=== PATIENT | female | born 1965 | race Caucasian/White ===

== ENCOUNTER 2020-03-22 14:05 | Outpatient (REF) | payer OTHER, SELFPAY ==
[2020-03-23 07:22] LABS: Follicle Stimulating Hormone 37.1 mIU/mL
== END 2020-03-22 14:06 | disposition home or self-care (01) ==
LOC: HO.LAB 14:05
PROVIDERS: PCP Physician Assistant; Visit Provider Advanced Practice Midwife
DX: Z01.419 Encounter for gynecological examination (general) (routine) without abnormal findings (principal); R23.2 Flushing
CPT/HCPCS: 83001; 88142

== ENCOUNTER 2020-03-22 16:43 | Outpatient (REF) | payer OTHER, SELFPAY ==
--- NOTE | 2020-03-22 | MM_ITS ---
EXAMINATION: MM SCREENING DIGITAL BREAST TOMOSYNTHESIS, BILATERAL CLINICAL INFORMATION: Screening. Asymptomatic. The lifetime risk of breast cancer based on the Tyrer-Cuzick Model is 20%. COMPARISON: Mammography: 08/19/2018, 08/13/2017, 09/25/2016 TECHNIQUE: Digital breast tomosynthesis is performed in both the craniocaudal and mediolateral oblique views along with computer-aided detection (CAD). Synthesized 2D images are generated from the tomosynthesis. FINDINGS: There are scattered areas of fibroglandular density (ACR BI-RADS breast composition Category b). There is inhomogeneous parenchymal pattern similar to prior exams. There is no developing density or interval mass or architectural abnormality. Some fine calcifications central outer right breast on CC view are stable. There are some similar punctate round calcifications scattered central left breast. The axilla and skin contours are unremarkable. No significant changes from prior studies. MM/MM tomosynthesis screening BI IMPRESSION: No significant changes from prior studies. ASSESSMENT: BI-RADS 2: Benign RECOMMENDATION: 1. Routine annual mammography screening. 2. The lifetime risk of breast cancer based on the Tyrer-Cuzick Model is 20%. Additional annual adjunct screening with breast MRI may be of benefit in women with a risk score of 20% or greater. This patient's information was entered into a reminder system with a target due date for their next mammogram.
[2020-03-29 20:12] LABS: HPV mRNA E6/E7 rflx Not Detected (Not Detected)
== END 2020-03-22 16:44 | disposition home or self-care (01) ==
LOC: HO.MAMMO 16:43
PROVIDERS: PCP Physician Assistant; Visit Provider Physician Assistant
DX: Z12.31 Encounter for screening mammogram for malignant neoplasm of breast (principal)
CPT/HCPCS: 77063; 77067; 87624; 87625

== ENCOUNTER → 2020-04-05 13:59 | Outpatient (BNVA) | payer OTHER, SELFPAY | PROVIDERS: PCP Physician Assistant; Referring Provider Physician Assistant; Visit Provider Advanced Practice Midwife | DX: Z76.89 Persons encountering health services in other specified circumstances (principal) ==

== ENCOUNTER → 2020-05-03 10:56 | Outpatient (BNVA) | payer OTHER, SELFPAY | PROVIDERS: PCP Physician Assistant; Visit Provider Internal Medicine Cardiovascular Disease | DX: R07.89 Other chest pain (principal); R00.2 Palpitations; I10 Essential (primary) hypertension; E78.5 Hyperlipidemia, unspecified | CPT/HCPCS: 93005; 99202 ==

== ENCOUNTER → 2020-05-27 08:13 | Outpatient (REF) | payer OTHER, SELFPAY ==
--- NOTE | 2020-05-27 08:35 | CA_ITS ---
Transthoracic Echocardiogram Patient (Last, First, Middle): Linda Epstein A Gender: Female Date of : 1965 Age: 54 Procedure Date: 05/27/2020 Procedure Type: Transthoracic Echocardiogram Location: OP Height: 160.02 cm Weight: 76.66 kg BSA: 1.80 m2 Heart Rate: bpm BP: 116 / 72 mmHg Tire Service Technician: RUSLAN Referring MD: Chya Barrow MD Symptoms: R07.89 - Other chest pain Study Quality: Good ECG Rhythm: Sinus Conclusions: - The left ventricular systolic function is normal. The visually estimated ejection fraction is between 60-65%. - No obvious valvular pathology seen on this study. Findings Left Ventricle Normal left ventricular cavity size. There is normal left ventricular wall thickness. The left ventricular systolic function is normal. The visually estimated ejection fraction is between 60-65%. There is no evidence of regional wall motion abnormalities. Diastolic function is normal for age. Right Ventricle Normal right ventricular cavity size and systolic function. Atria Both atria are normal in size. Aortic Valve There is a normal trileaflet aortic valve. There is no aortic valve stenosis. There is no aortic valve regurgitation. Mitral Valve The mitral valve appears normal. There is trace mitral valve regurgitation. There is no mitral valve stenosis. Pulmonic Valve The pulmonic valve was not well visualized. Tricuspid Valve Normal tricuspid valve structure. There is trace tricuspid valve regurgitation. The pulmonary artery systolic pressure is normal. Great Vessels The aortic annulus, sinuses of valsalva, and asc aorta are normal in size. Venous The inferior vena cava is normal in size and collapses greater than 50% with inspiration. Pericardium/Pleural There is no evidence of pericardial effusion. Prior Study Comparison No prior study available for comparison. Recommendations, Care & Conclusions No obvious valvular pathology seen on this study. Measurements 2D Linear Measurements IVSd: 0.78 0.6-0.9/0.6-1.0 cm LVIDd: 4.12 3.9-5.3/4.2-5.9 cm LVIDd Index: 2.29 2.4-3.2/2.2-3.1 cm/m2 LVIDs: 2.92 2.0-3.6 cm LVPWd: 0.91 0.7-1.1 cm Ao Root: 2.70 2.1-3.5 cm LA Diam: 3.60 2.7-3.8/3.0-4.0 cm LAIDs Index: 2.00 1.5-2.3 cm/m2 LV Mass: 130.50 67-162/88-224 g LV Mass Index: 72.50 43-95/49-115 g/m2 LVOT Diam: 1.80 3.0+(-)1.3 cm 2D Systolic Function EF 4C: 61.30 >55% EF 2C: 66.40 >55% EF BiP: 64.70 >55% Mitral Valve MV Pk E: 0.59 MV PK A: 0.40 MV Decel Time: 155.00 E/A: 1.50 E'Lateral: 14.20 E'Medial: 9.38 E/E' Med: 6.30 E/E' Lat: 4.10 PHT: 45.00 MVA PHT: 4.89 Decel Medina: 3.79 Aortic Valve AoV Pk Eben: 1.25 AoV Pk Grad: 6.00 LVOT LVOT Pk Eben: 1.16 LVOT Mn Eben: 0.79 LVOT VTI: 0.27 LVOT Pk Grad: 5.00 LVOT Mn Grad: 3.00 LVOT Diam: 1.80 LVOT Area: 2.54 Diastolic Function MV Pk E: 0.59 MV Pk A: 0.40 E/A: 1.50 E'Medial: 9.38 E/E' Med: 6.30 E' Laterial: 14.20 E/E' Lat: 4.10 Tricuspid Valve TR Pk Eben: 2.39 TR Pk Grad: 23.00 RA Press: 3.00 RVSP: 26.00 Great Vessels Aorta Ao Root-2D: 2.70 2.0-3.7 cm Ao Arch: 2.90 Updated in Other Vendor System with Status of Final Richmond Berger MD electronically signed on 05/29/2020 1:09:19 PM with status of Final
--- NOTE | 2020-05-27 08:35 | ECG_ITS ---
Hook-up date: 2020-05-27 10:29:00 Duration: 24:57:00 Test Indications: ESSEN. HTN, PALPITATIONS, HYPERL Medications: [id number] QRS complexes 1 Ventricular ectopics which represent <1 % of total QRS comp. 7 Supraventricular ectopics which represent <1 % of total QRS comp. * Paced QRS complexs which represent % of total QRS comp. VENTRICULAR ECTOPY 1 Isolated 0 Bigeminal Cycles 0 Couplets 0 Runs 0 Beats in Runs * Beats LONGEST at * BPM at :: -- * Beats FASTEST at * BPM at :: -- SUPRAVENTRICULAR ECTOPY 5 Isolated 1 Couplets 0 Runs 0 Beats in Runs * Beats LONGEST at * BPM at :: -- * Beats FASTEST at * BPM at :: -- HEART RATES 62 MIN at 21:20:08 2020-05-27 70 AVG 102 MAX at 17:30:44 2020-05-27 LONGEST RR 1.3040 secs at 17:49:30 2020-05-27 S-T LEVELS Channel 1 - 128 mm at 10:29:00 2020-05-27 - 128 mm at 10:29:00 2020-05-27 Channel 2 - 128 mm at 10:29:00 2020-05-27 - 128 mm at 10:29:00 2020-05-27 Channel 3 - 128 mm at 02:94:81 -- - 128 mm at 02:94:81 Basic rhythm Normal sinus rhythm No long pause or profound bradycardia No dangerous dysrhythm periods Patient did not report any symptoms in the diary Referred By: Liban Watkins Overread By: GRACIELA CATES MD
--- NOTE | 2020-05-27 09:29 | NM_ITS ---
Exercise Myocardial perfusion study Indication: Chest pain to evaluate for myocardial ischemia Technique: The patient was brought in for an exercise perfusion study on 05/27/2020. Patient performed exercise as per Harjinder protocol and was injected 25 mCi of sestamibi was given intravenously one target HR was achieved. Images were obtained using the SPECT gamma camera interlaced with the gating device. Images were obtained in supine position. Resting perfusion study was performed on 05/31/2020. Patient was administered 25 mCi of sestamibi intravenously at rest. Images were then obtained in supine position. Images were processed with the software and compared side to side in short axis, horizontal long axis and vertical long axis views. Images obtained with and without CT attenuation. Total DLP 91 mGy-cm. Findings: The stress perfusion study showed both attenuated corrected as well as non attenuated images show normal uptake of radiotracer in all segments of LV myocardium. The gated study shows normal LV systolic function with calculated LVEF of greater than 70 %. LV cavity is normal in size. The gated study shows normal systolic wall thickening and contraction of all segments. There is no transient ischemic dilation. Resting study shows normal uptake of radiotracer in all segments of LV myocardium. Gating at rest reveals normal systolic wall motion with ejection fraction at 67%. The findings are consistent with normal myocardial perfusion. NM/NM cardiolite stress test Impression: 1. Normal myocardial perfusion 2. Gated LVEF is 67% 3. Transient ischemic dilatation not present Stress EKG is negative for ischemia
--- NOTE | 2020-05-27 09:30 | CA_ITS ---
Acquisition Time: 2020-05-27 10:37:19 Total Exercise Time: 00:07:15 Test Indications: Chest Pain Medications: PROPRANOLOL ZOLPIDEM HCTZ MAG BUPROPION Protocol: NASH Max HR: 141 BPM 84% of Pred: 167 BPM Max BP: 150/090 mmHG Max Work Load: 8.4 METS Exercise stress nuclear using Nash protocol, total of 7 min 15 sec. METS 8.40, TAPHR up to 84 %. Pt tolerated well, denies any anginal sx. EKG with isolated PVC's, ST inverions seen inferiorly, laterally and anteriorly. Nuclear images to follow. Normotensive response to exercise. Test reviewed with DR. Berger. Referred By: Chay Barrow Overread By: Stefan Morris
[2020-05-27 11:18] LABS: Alanine Aminotransferase 9 U/L (0-31); Albumin Level 4.4 g/dL (3.5-5.0); Alkaline Phosphatase 74 U/L (39-117); Anion Gap 18 (12-20); Aspartate Amino Transferase 10 U/L (5-31); Bilirubin Total 0.5 mg/dL (0.0-1.0); Blood Urea Nitrogen 12 mg/dL (9-16); Calcium 9.1 mg/dL (8.4-10.2); Carbon Dioxide 20 mmol/L (22-29); Chloride 101 mmol/L (96-108); Cholesterol 223 mg/dL; Estimated Glomerular Filt Rate > 60; Glucose Fasting 98 mg/dL (60-99); HDL Cholesterol 68 mg/dL; LDL Cholesterol Calculated 142 mg/dl; Potassium 4.2 mmol/l (3.3-5.1); Sodium 135 mmol/L (135-145); Triglycerides 66 mg/dL
[2020-05-27 11:38] LABS: TSH reflex Free T4 2.09 mIU/mL (0.32-4.0)
[2020-05-28 16:57] LABS: Follicle Stimulating Hormone 13.5 mIU/mL
== END ==
LOC: HO.CARD 08:13
PROVIDERS: PCP Physician Assistant; Referring Provider Advanced Practice Midwife; Visit Provider Internal Medicine Cardiovascular Disease
DX: R07.89 Other chest pain (principal); I10 Essential (primary) hypertension; R00.2 Palpitations; E78.5 Hyperlipidemia, unspecified; F33.0 Major depressive disorder, recurrent, mild; N91.2 Amenorrhea, unspecified; Z13.1 Encounter for screening for diabetes mellitus
CPT/HCPCS: 36415; 78452; 80053; 80061; 83001; 84443; 93005; 93017; 93225; 93226; 93306; A9500

== ENCOUNTER → 2020-05-31 13:09 | Outpatient (BNVA) | payer OTHER, SELFPAY | PROVIDERS: PCP Physician Assistant; Visit Provider Advanced Practice Midwife | DX: Z13.89 Encounter for screening for other disorder (principal) | CPT/HCPCS: 58301 ==

== ENCOUNTER → 2020-06-14 10:52 | Outpatient (BNVA) | payer OTHER, SELFPAY | PROVIDERS: PCP Physician Assistant; Visit Provider Internal Medicine Cardiovascular Disease | DX: R00.2 Palpitations (principal); R07.89 Other chest pain | CPT/HCPCS: 99212 ==

== ENCOUNTER 2020-09-02 09:54 | Emergency (ER) | payer OTHER, SELFPAY ==
--- NOTE | ~2020-09-02 | US_ITS ---
EXAMINATION: US VENOUS ULTRASOUND WITH DOPPLER LOWER EXTREMITY, RIGHT CLINICAL INFORMATION: Right lower extremity swelling COMPARISON: November 26, 2008 TECHNIQUE: Ultrasound of the deep veins is performed from the hip to the calf with compression sonography and color and pulse Doppler assessment. Spectral analysis with color-flow imaging is performed. FINDINGS: There is normal venous compression and respiratory variation and augmented flow. The visualized common femoral vein, superficial femoral vein, profunda femoral vein, popliteal vein, and the trifurcation region shows no evidence of deep venous thrombosis. No popliteal artery aneurysm. No popliteal fossa cyst. If the patient's symptoms persist, followup ultrasound in 5 days 7 days might be of value to exclude proximal propagation from a non-visualized calf vein. US/US venous duplex LE RT IMPRESSION: No acute DVT demonstrated in the right lower extremity.
[2020-09-02 10:23] VITALS: BP 151/86; PULSE 77; RESP 14; TEMP 36.6; O2SAT 98; BMI 28.5
--- NOTE | 2020-09-02 10:38 | ED.GENADULT ---
HPI - General Adult General Chief complaint: Extremity Injury, Lower <Bahman Kapoor - Last Filed: 09/02/20 13:26> Stated complaint: rt leg pain <Bahman Kapoor - Last Filed: 09/02/20 13:26> Time Seen by Provider: 09/02/20 10:29 <Bahman Kapoor - Last Filed: 09/02/20 13:26> Source: patient <Bahman Kapoor - Last Filed: 09/02/20 13:26> Mode of arrival: ambulatory <Bahman Kapoor - Last Filed: 09/02/20 13:26> Limitations: no limitations <Bahman Kapoor - Last Filed: 09/02/20 13:26> History of Present Illness HPI narrative: Patient complaining of right lower pain for 1 week. Patients denies trauma or a past history of DVTs. Patient states she has family history of DVTs. Patient has not been vaccinated for covid 19. + tobacco history. Patient state s pain is achy increases with palpation and originally started behind right knee. Pain 5/10 <Bahman Kapoor - Last Filed: 09/02/20 13:26> Onset (ago): week(s) <Bahman Kapoor - Last Filed: 09/02/20 13:26> Severity: mild <Bahman Kapoor - Last Filed: 09/02/20 13:26> Severity scale (1-10): 5 <Bahman Kapoor - Last Filed: 09/02/20 13:26> Related Data Home medications: Home Medications Medication Instructions Recorded Confirmed cholecalciferol (vitamin D3) 25 25 mcg PO DAILY 03/22/20 09/07/20 mcg (1,000 unit) capsule magnesium sulfate 100 mg capsule 100 mg PO DAILY 03/22/20 09/07/20 omega 3,6,9 combination no.7 92 mg mg PO 03/22/20 09/07/20 (43 mg-22 [id number]) chew tablet vitamin E 200 unit capsule 200 unit PO DAILY 03/22/20 09/07/20 vitamin B complex 1 tab PO DAILY 06/14/20 09/07/20 Previous Rx's Medication Instructions Recorded bupropion HCl 150 mg tablet,12 hr 150 mg PO QAM #30 cap 06/29/20 sustained-release hydrochlorothiazide 12.5 mg capsule 12.5 mg PO QAM #30 cap 07/24/20 propranolol 60 mg capsule,24 60 mg PO DAILY #30 cap 07/24/20 hr,extended release zolpidem 10 mg tablet 10 mg PO BEDTIME 30 Days #30 tab 07/28/20 atomoxetine 40 mg capsule 40 mg PO DAILY 14 Days #14 cap 09/07/20 atomoxetine 80 mg capsule 80 mg PO DAILY 30 Days #30 cap 09/07/20 <Bahman Kapoor - Last Filed: 09/02/20 13:26> Allergies/adverse reactions: Allergies Allergy/AdvReac Type Severity Reaction Status Date / Time Sulfa (Sulfonamide Allergy Severe HIVES, Verified 09/07/20 13:50 Antibiotics) anaphylaxis, [SULFA(SULFONAMIDE hives, ANTIBIOTICS)] airway constriction aspirin Allergy Unknown GI upset Verified 09/07/20 13:50 vomiting <Bahman Kapoor Last Filed: 09/02/20 13:26> Review of Systems Constitutional: Constitutional: Denies chills, Denies fatigue, Denies fever(s), Reports headache(s) and Denies weakness <Bahman Kapoor [employer] Last Filed: 09/02/20 13:26> ENT: Reports headache(s) <Bahman Kapoor [employer] Last Filed: 09/02/20 13:26> Cardiovascular: Cardiovascular: Denies chest pain, Denies chest pain at rest, Denies chest pain with activity and Denies dyspnea <Bahman Kapoor - Last Filed: 09/02/20 13:26> Respiratory: Respiratory: Denies chest congestion, Denies hemoptysis, Denies dyspnea and Denies wheezing <Bahman Kapoor [employer] Last Filed: 09/02/20 13:26> Gastrointestinal: Gastrointestinal: Denies nausea and Denies vomiting <Bahman [employer] Last Filed: 09/02/20 13:26> Musculoskeletal: Musculoskeletal: Reports as per HPI <Bahman Kapoor [employer] Last Filed: 09/02/20 13:26> Comments: right let pain calf <Bahman Kapoor [employer] Last Filed: 09/02/20 13:26> Neurologic: Reports headache(s) and Denies weakness <Bahman Kapoor [employer] Last Filed: 09/02/20 13:26> Psychiatric: Psychiatric: Reports no additional psychiatric complaints <Bahman Kapoor [employer] Last Filed: 09/02/20 13:26> Endocrine: Endocrine: Denies fatigue <Diabetica Filed: 09/02/20 13:26> Allergic/Immunologic: Allergic/Immunologic: Denies wheezing <Bahman Kapoor - Last Filed: 09/02/20 13:26> Comments: no rash <Bahman Kapoor - Last Filed: 09/02/20 13:26> FOR[facility]LY [facility], [facility] Past Medical History Attestation statement: The following information was validated with the patient. <Bahman Kapoor - Last Filed: 09/02/20 13:26> Medical History: Medical History Colon cancer screening History of ADHD History of urinary incontinence HTN (hypertension) Hyperlipidemia <Bahman Kapoor - Last Filed: 09/02/20 13:26> Surgical History: Surgical History History of elbow surgery <Bahman Kapoor - Last Filed: 09/02/20 13:26> Family History Family History: Family History Father GERD (gastroesophageal reflux disease) Stroke Mother Diabetes GERD (gastroesophageal reflux disease) Depression Hypertension Fibromyalgia Maternal Grandmother Dementia Uterine cancer Son Autism <Bahman Kapoor - Last Filed: 09/02/20 13:26> Social History Social History: Social History Alcohol intake: never Smoking Status: Current every day smoker Cigarettes Per Day: 10 Sexual orientation: Straight/Heterosexual Gender identity: female <Bahman Kapoor - Last Filed: 09/02/20 13:26> Physical Exam Vital Signs: Vital Signs: Last Vital Signs Temp 97.9 F 09/02/20 10:23 Pulse 77 09/02/20 10:23 Resp 14 09/02/20 10:23 BP 151/86 H 09/02/20 10:23 Pulse Ox 98 09/02/20 10:23 Body Mass Index 28.5 <Bahman Kapoor - Last Filed: 09/02/20 13:26> Vital Signs: Last Vital Signs Temp 97.9 F 09/02/20 10:23 Pulse 77 09/02/20 10:23 Resp 14 09/02/20 10:23 BP 151/86 H 09/02/20 10:23 Pulse Ox 98 09/02/20 10:23 Body Mass Index 28.5 <García Villegas MD - Last Filed: 09/18/20 01:27> Const: General: cooperative, healthy appearing, comfortable, no acute distress, alert and awake <Bahman Kapoor Last Filed: 09/02/20 13:26> Nutritional Appearance: average body habitus <Bahman Kapoor Last Filed: 09/02/20 13:26> Orientation/consciousness: patient oriented x3 <Bahman Kapoor Last Filed: 09/02/20 13:26> Limitations: no limitations <[facility] [address] Last Filed: 09/02/20 13:26> HENMT: Head: Yes normal to inspection <Bahman Kapoor Last Filed: 09/02/20 13:26> Ears: hearing grossly normal bilaterally <Bahman Kapoor Last Filed: 09/02/20 13:26> Eyes: Pupils: Equal, round and reactive pupils present <Bahman Kapoor Last Filed: 09/02/20 13:26> EOM: EOMs intact bilaterally <Bahman Kapoor Last Filed: 09/02/20 13:26> Neck: Neck: Yes full ROM <Bahman Kapoor Last Filed: 09/02/20 13:26> Chest: Chest palpation & inspection: normal inspection of the chest and normal palpation of entire chest wall <Bahman Kapoor Last Filed: 09/02/20 13:26> Resp: Effort & Inspection: normal respiratory effort, able to speak in complete sentences and no respiratory distress <Bahman Kapoor Last Filed: 09/02/20 13:26> Cardio: Jugular venous distension: no JVD <Bahman Kapoor Last Filed: 09/02/20 13:26> Rhythm: regular rhythm <Bahman Kapoor - Last Filed: 09/02/20 13:26> Heart sounds: S1 normal heart sound present and S2 normal heart sound present <Bahman Kapoor Last Filed: 09/02/20 13:26> GI: Inspection: Yes normal to inspection <[facility] [address] Last Filed: 09/02/20 13:26> Palpation (GI): Soft to palpation, nontender and no guarding <Bahman Kapoor Last Filed: 09/02/20 13:26> Back/Spine/Pelvis: Thoracic/Lumbar Spine: thoracic and lumbar spine normal to inspection <Bahman Kapoor - Last Filed: 09/02/20 13:26> Skin: General skin exam: no rashes or lesions noted and no jaundice <Bahman Kapoor - Last Filed: 09/02/20 13:26> Rashes: no rashes <Bahman Kapoor - Last Filed: 09/02/20 13:26> Neuro: General: patient oriented x3 and No decrease sensation to monofilament <Bahman Kapoor - Last Filed: 09/02/20 13:26> Cranial nerves: Yes Equal, round and reactive pupils present <Bahman Kapoor - Last Filed: 09/02/20 13:26> Gait exam (Neuro): Normal gait present and not ataxic <Bahman Kapoor - Last Filed: 09/02/20 13:26> Extrem: Other: + tenderness right calf full ROM no mass palpated + sensation and pulses <Bahman Kapoor - Last Filed: 09/02/20 13:26> Course Course Course Narrative: Plan duplex right lower extremity 1:20 p.m. Duplex negative for DVT <Bahman Kapoor - Last Filed: 09/02/20 13:26> I have reviewed the chart <García Villegas MD - Last Filed: 09/18/20 01:27> Medical Decision Making Differential Diagnosis Differential Diagnosis: Right Leg DVT, Rupture bakers cyst, Bakers cyst, right leg strain <Bahman Kapoor - Last Filed: 09/02/20 13:26> Imaging Data Venous US: Attestation: I personally reviewed and interpreted this imaging study as follows: <Bahman Kapoor - Last Filed: 09/02/20 13:26> Radiologist's impression: [address] [id number] ReportSigned Patient: Linda Epstein AMR#: [id number]: 1965Acct:[id number]/Sex: 55 / FADM Date: 09/02/20Loc: [id number]: Ordering Physician: MENDEL MITCHELL Date of Service: 09/02/20 Procedure(s): US venous duplex LE RT Accession Number(s): [id number] cc: MENDEL MITCHELL~ EXAMINATION: US VENOUS ULTRASOUND WITH DOPPLER LOWER EXTREMITY, RIGHT CLINICAL INFORMATION: Right lower extremity swelling COMPARISON: November 26, 2008 TECHNIQUE: Ultrasound of the deep veins is performed from the hip to the calf with compression sonography and color and pulse Doppler assessment. Spectral analysis with color-flow imaging is performed. FINDINGS: There is normal venous compression and respiratory variation and augmented flow. The visualized common femoral vein, superficial femoral vein, profunda femoral vein, popliteal vein, and the trifurcation region shows no evidence of deep venous thrombosis. No popliteal artery aneurysm. No popliteal fossa cyst. If the patient's symptoms persist, followup ultrasound in 5 days 7 days might be of value to exclude proximal propagation from a non-visualized calf vein. US/US venous duplex LE RT IMPRESSION: No acute DVT demonstrated in the right lower extremity. <Bahman Kapoor - Last Filed: 09/02/20 13:26> Discharge Plan Discharge Clinical Impression: Strain of right calf muscle <Bahman Kapoor - Last Filed: 09/02/20 13:26> Patient Disposition: Home, Self-Care <Bahman Kapoor - Last Filed: 09/02/20 13:26> Instructions: Muscle Strain (ED) <Bahman Landerosens - Last Filed: 09/02/20 13:26> Additional Instructions: Rest ice elevation in your ultrasound was negative for blood clot. <Bahman Kapoor - Last Filed: 09/02/20 13:26> Prescriptions: No Action bupropion HCl 150 mg tablet sustained-release 12 hr 150 mg PO QAM Qty: 30 RF: 4 hydrochlorothiazide 12.5 mg capsule 12.5 mg PO QAM Qty: 30 RF: 3 propranolol 60 mg capsule,extended release 24 hr 60 mg PO DAILY Qty: 30 RF: 3 zolpidem 10 mg tablet 10 mg PO BEDTIME 30 Days Qty: 30 RF: 3 atomoxetine 40 mg capsule 40 mg PO DAILY 14 Days Qty: 14 RF: 0 atomoxetine 80 mg capsule 80 mg PO DAILY 30 Days Qty: 30 RF: 1 cholecalciferol (vitamin D3) 25 mcg (1,000 unit) capsule 25 mcg PO DAILY RF: 0 magnesium sulfate 100 mg capsule 100 mg PO DAILY RF: 0 omega 3,6,9 combination no.7 92 mg (43 mg-22 [id number]) tablet,chewable PO RF: 0 vitamin E 200 unit capsule 200 unit PO DAILY RF: 0 vitamin B complex [B Complex-Vitamin B12] Tablet 1 tab PO DAILY RF: 0 <Bahman Kapoor - Last Filed: 09/02/20 13:26> Referrals: Liban Watkins PA-C [Primary Care Provider] - 2 days <Bahman Kapoor - Last Filed: 09/02/20 13:26> Interventions: ED Discharge Assessment Last Done: 09/02/20 13:50 <Bahman Kapoor - Last Filed: 09/02/20 13:26> Discharge Date/Time: 09/02/20 13:51 <Bahman Kapoor - Last Filed: 09/02/20 13:26>
--- NOTE | 2020-09-02 11:35 | PC.NURSE ---
US TECH AT BEDSIDE FOR EXAM
== END 2020-09-02 13:51 | disposition home or self-care (01) ==
PROVIDERS: Emergency Provider Emergency Medicine; PCP Physician Assistant
DX: S86.911A Strain of unspecified muscle(s) and tendon(s) at lower leg level, right leg, initial encounter (principal); R60.0 Localized edema; M79.604 Pain in right leg; F17.200 Nicotine dependence, unspecified, uncomplicated; X58.XXXA Exposure to other specified factors, initial encounter; Y93.9 Activity, unspecified; Y92.9 Unspecified place or not applicable; Y99.9 Unspecified external cause status; Z79.899 Other long term (current) drug therapy; Z71.6 Tobacco abuse counseling
CPT/HCPCS: 93971; 99283

== ENCOUNTER → 2020-10-05 11:26 | Outpatient (BNVA) | payer OTHER, SELFPAY | PROVIDERS: PCP Physician Assistant; Visit Provider Surgery Vascular Surgery | DX: I83.11 Varicose veins of right lower extremity with inflammation (principal) | CPT/HCPCS: 99202 ==

== ENCOUNTER 2020-10-11 07:59 | Outpatient (REF) | payer OTHER, SELFPAY ==
--- NOTE | ~2020-10-11 | US_ITS ---
EXAMINATION: BILATERAL LOWER EXTREMITY VENOUS ULTRASOUND (REFLUX EXAM) CLINICAL INDICATION: Varicose veins of the right lower extremity. COMPARISON: DVT study 09/02/2020. TECHNIQUE: Color flow triplex imaging and compression Doppler was performed to evaluate both the deep and the superficial systems bilaterally. To evaluate the superficial system, the examination was performed in the upright position. Color-flow Doppler ultrasound and compression ultrasound were utilized. In addition, maneuvers were utilized to demonstrate reflux. FINDINGS: 1. DEEP VENOUS ULTRASOUND OF THE RIGHT LOWER EXTREMITY: Common Femoral Vein: Compressible, normal respiratory variation and augmented flow. Femoral vein: Compressible, normal color flow and augmentation. Popliteal Vein: Compressible, normal augmentation. Deep Reflux: There is no evidence of reflux in the deep system in either the common femoral vein or the popliteal vein. There is no evidence of a Smith's cyst. 2. SUPERFICIAL ULTRASOUND WITH DOPPLER OF RIGHT LOWER EXTREMITY GREAT SAPHENOUS VEIN: Saphenofemoral junction: 0.7 cm Midthigh: 0.4 cm Above knee: 0.3 cm Below knee: 0.2 cm Midcalf: 0.1 cm Ankle: 0.2 cm GSV REFLUX: No evidence of reflux. DUPLICATED GREAT SAPHENOUS VEIN: None SMALL SAPHENOUS VEIN: Upper: 0.4 cm Lower: 0.2 cm SSV REFLUX: No evidence of reflux. VEIN OF GIACOMINI: None imaged. 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 VARICOSITIES: None imaged. 3. DEEP VENOUS ULTRASOUND OF THE LEFT LOWER EXTREMITY: Common Femoral Vein: Compressible, normal respiratory variation and augmented flow. Femoral vein: Compressible, normal color flow and augmentation. Popliteal Vein: Compressible, normal augmentation. Deep Reflux: There is no evidence of reflux in the deep system in either the common femoral vein or the popliteal vein. There is no evidence of a Smith's cyst. 4. SUPERFICIAL ULTRASOUND WITH DOPPLER OF LEFT LOWER EXTREMITY GREAT SAPHENOUS VEIN: Saphenofemoral junction: 0.8 cm Midthigh: 0.3 cm Above knee: 0.4 cm Below knee: 0.3 cm Midcalf: 0.3 cm Ankle: 0.2 cm GSV REFLUX: Reflux is noted at the level of the midcalf measuring 1200 ms and ankle at 944 ms. DUPLICATED GREAT SAPHENOUS VEIN: None SMALL SAPHENOUS VEIN: Upper: 0.2 cm Lower: 0.2 cm SSV REFLUX: No evidence of reflux. VEIN OF GIACOMINI: None imaged. PERFORATORS: None imaged. VARICOSITIES: Varicose veins are noted in the thigh proximally measuring 0.3 cm with reflux greater than 3364 ms. Varicose veins at the distal thigh measuring 0.3 cm without reflux. Varicose veins in the proximal calf measure 0.2 cm with reflux greater than 3328 ms. US/US venous duplex LE BI IMPRESSION: 1. Venous insufficiency with evidence of reflux of the left great saphenous vein at the midcalf and ankle. 2. Venous insufficiency with evidence of reflux in the left lower extremity varicose veins in the thigh and calf.
== END 2020-10-11 08:00 | disposition home or self-care (01) ==
LOC: HO.US 07:59
PROVIDERS: Visit Provider Surgery Vascular Surgery
DX: I83.11 Varicose veins of right lower extremity with inflammation (principal); I83.893 Varicose veins of bilateral lower extremities with other complications
CPT/HCPCS: 93970

== ENCOUNTER → 2020-10-19 11:10 | Outpatient (BNVA) | payer OTHER, SELFPAY | PROVIDERS: PCP Physician Assistant; Visit Provider Surgery Vascular Surgery | DX: I83.11 Varicose veins of right lower extremity with inflammation (principal) | CPT/HCPCS: 99212 ==

== ENCOUNTER 2021-05-07 15:00 | Outpatient (REF) | payer OTHER, SELFPAY ==
[2021-05-07 16:35] LABS: Binax Internal Control QC Valid; Binax Lot number: 9864; Binax Now Covid-19 Ag Negative (Negative)
== END 2021-05-07 15:01 | disposition home or self-care (01) ==
LOC: HO.LAB 15:00
PROVIDERS: Visit Provider Internal Medicine
DX: Z20.822 Contact with and (suspected) exposure to COVID-19 (principal)
CPT/HCPCS: 36415; C9803

== ENCOUNTER 2021-05-10 12:07 | Outpatient (REF) | payer OTHER, SELFPAY ==
--- NOTE | ~2021-05-10 | MM_ITS ---
EXAMINATION: MM SCREENING DIGITAL BREAST TOMOSYNTHESIS, BILATERAL CLINICAL INFORMATION: Screening. Asymptomatic. Family history breast cancer, sister. The lifetime risk of breast cancer based on the Tyrer-Cuzick Model is 24%. COMPARISON: Mammography: 03/22/2020, 08/19/2018, 08/13/2017, 09/25/2016, 03/13/2016, 09/06/2015. TECHNIQUE: Digital breast tomosynthesis is performed in both the craniocaudal and mediolateral oblique views along with computer-aided detection (CAD). Synthesized 2D images are generated from the tomosynthesis. FINDINGS: There are scattered areas of fibroglandular density (ACR BI-RADS breast composition Category b). Parenchymal pattern is similar to prior exams. There is no interval mass or architectural abnormality. There are some scattered punctate calcifications left breast similar to prior studies. The bilateral axilla and skin contours are unremarkable. Right breast has tightly grouped calcifications just lateral to midline 11:30 o'clock position 6 cm from nipple. They appear increased from prior studies. Some calcifications may be vascular on tomography. Patient will be recalled for additional imaging. MM/MM tomosynthesis screening BI IMPRESSION: 1. Right: Tightly grouped calcifications 11:30 o'clock position. 2. Left: No mammographic evidence of malignancy. ASSESSMENT: BI-RADS 0: Incomplete - Need Additional Imaging Evaluation RECOMMENDATION: 1. Additional views of the right breast (magnification CC, magnification ML). 2. Radiology department staff will contact the patient for additional imaging. 3. The lifetime risk of breast cancer based on the Tyrer-Cuzick Model is 24%. Additional annual adjunct screening with breast MRI may be of benefit in women with a risk score of 20% or greater. This patient's information was entered into a reminder system with a target due date for their next mammogram.
== END 2021-05-10 12:08 | disposition home or self-care (01) ==
LOC: HO.MAMMO 12:07
PROVIDERS: PCP Physician Assistant; Visit Provider Physician Assistant
DX: Z12.31 Encounter for screening mammogram for malignant neoplasm of breast (principal)
CPT/HCPCS: 77063; 77067

== ENCOUNTER 2021-05-18 08:53 | Outpatient (REF) | payer OTHER, SELFPAY ==
--- NOTE | ~2021-05-18 | MM_ITS ---
EXAMINATION: MM DIAGNOSTIC DIGITAL MAMMOGRAPHY, RIGHT CLINICAL INFORMATION: Recall from screening for calcifications right breast 11:30 o'clock position mid depth. Family history breast cancer, sister. TC score 24%. COMPARISON: Mammography: 05/10/2021, 03/22/2020 TECHNIQUE: Digital mammography is performed in the following views: Magnification CC, magnification ML. FINDINGS: There are scattered areas of fibroglandular density (ACR BI-RADS breast composition Category b). Additional magnification views confirm numerous punctate amorphous calcifications mid 11:00 position, over 10 in number representing change from prior studies. There is a satellite group of calcifications within 0.7 cm away anterior and medial of lesser number. Results are discussed with the patient at time of visit. Stereotactic sampling is recommended. Results and recommendation called to emergency medical dispatcher (Mary) for EVELIA Santoyo on 05/18/2021. MM/MM added views RT IMPRESSION: Numerous tightly grouped amorphous calcifications mid 11:00 right breast representing change from prior exams. Adjacent satellite group lesser calcifications within 0.7 cm away. ASSESSMENT: BI-RADS 4: Suspicious RECOMMENDATION: Stereotactic biopsy right breast calcifications. This patient's information was entered into a reminder system with a target due date for their next mammogram.
== END 2021-05-18 08:54 | disposition home or self-care (01) ==
LOC: HO.MAMMO 08:53
PROVIDERS: PCP Physician Assistant; Visit Provider Physician Assistant
DX: R92.1 Mammographic calcification found on diagnostic imaging of breast (principal)
CPT/HCPCS: 77065

== ENCOUNTER 2021-05-31 09:27 | Outpatient (REF) | payer OTHER, SELFPAY ==
--- NOTE | ~2021-05-31 | MM_ITS ---
EXAMINATION: STEREOTACTIC TOMOSYNTHESIS-GUIDED VACUUM-ASSISTED BREAST BIOPSY, RIGHT SPECIMEN RADIOGRAPH, RIGHT POST PROCEDURE DIGITAL MAMMOGRAM, RIGHT CLINICAL INFORMATION: Tightly grouped amorphous calcifications mid 11:00 right breast adjacent satellite group lesser calcifications within 0.7 cm away. Family history breast cancer, sister. TC score 24%. COMPARISON: Mammography 05/10/2021, 05/18/2021. TECHNIQUE/PROCEDURE: Informed consent was obtained from the patient after discussion of the benefits, risks, and alternatives to biopsy today. Patient appeared to understand. Gave opportunity for questions. Patient signed consent form. BIOPSY TABLE: [employer] Prone Biopsy System. LESION: Calcifications mid 12:00 right breast. LOCAL ANESTHESIA: 7 mL carbonated 1% lidocaine; 10 mL 1% lidocaine with epinephrine. DERMATOTOMY: Single skin jose dermatotomy performed. NEEDLE: [employer]in[employer]iva 9-gauge vacuum assisted core biopsy device. APPROACH: caudal cranial. TARGETING: Combination of digital breast tomosynthesis and stereotactic digital mammography used for targeting. CORES: 14. CLIP: [employer] T-shaped marker. SPECIMEN RADIOGRAPH: Specimen radiograph is taken in separate room using digital mammography. The index calcifications are in the excised cores. There are over 30 calcifications in the cores. POST PROCEDURE UNILATERAL DIGITAL MAMMOGRAM: The post biopsy mammogram is performed in separate room using separate digital mammography equipment from the biopsy procedure. CC and ML views are obtained. There are scattered areas of fibroglandular density (breast composition category: b). The clip marker is in position. The calcifications are markedly decreased at the biopsy site and no longer clearly visualized. No gross hematoma. The patient tolerated the procedure well. No immediate complications. Home instructions reviewed with the patient. Final pathology results are pending. MM/MM stereotactic biopsy RT IMPRESSION: 1. Digital tomosynthesis-guided core biopsy right breast with clip placement. 2. Specimen radiograph taken and post procedure mammogram. There is satisfactory positioning of the biopsy clip. 3. Final pathology results pending. An addendum report will be issued.
[2021-06-02] MEDS: Lidocaine HCl 1 % 20 ML VIAL 10 ML SUBCUT (14:31)
[2021-06-02] MEDS: Sodium Bicarbonate 8.4% 50 MEQ/50 ML VIAL SUBCUT (14:33)
== END 2021-05-31 09:28 | disposition home or self-care (01) ==
LOC: HO.MAMMO 09:27
PROVIDERS: PCP Physician Assistant; Visit Provider Surgery
DX: R92.8 Other abnormal and inconclusive findings on diagnostic imaging of breast (principal)
CPT/HCPCS: 19081; 88305; 99202; A4648

== ENCOUNTER → 2021-06-02 15:47 | Outpatient (BNVA) | payer OTHER, SELFPAY | PROVIDERS: PCP Physician Assistant; Referring Provider Physician Assistant; Visit Provider Surgery | DX: R92.8 Other abnormal and inconclusive findings on diagnostic imaging of breast (principal); Z80.3 Family history of malignant neoplasm of breast | CPT/HCPCS: 99212 ==

== ENCOUNTER 2021-06-15 07:47 | Day surgery (SDC) | payer OTHER, SELFPAY ==
[2021-06-09 13:47] VITALS: BMI 29.4
--- NOTE | 2021-06-14 09:43 | HO.ANESPROP2 ---
Documented by User: June Whyte NP 06/14/21 09:47 HPI - Anesthesia Eval Consult details Narrative: 55yo F for Right Breast Biopsy Needle Localization, Breast Lumpectomy 05/2020 Cardiac w/u for palps - Echo, MIBI, and Holter WNL PMFSH Active Problems Active Problems: All Active Problems (Updated 06/13/21 @ 05:48 by Zack Parker MD) Atypical ductal hyperplasia of right breast (Acute) Family history of breast cancer (Acute) Abnormal mammogram of right breast (Acute) Depression (Acute) Encounter for annual routine gynecological examination (Acute) Vitamin D deficiency (Acute) AQUILINO (generalized anxiety disorder) (Acute) Annual physical exam (Acute) Sinusitis (Acute) Lumbar disc disease with radiculopathy (Acute) Varicose veins of right lower extremity with inflammation (Acute) ADHD (Acute) History of ADHD (Acute) Hyperlipidemia (Acute) HTN (hypertension) (Acute) Palpitations (Acute) Atypical chest pain (Acute) Screening for hypercholesterolemia (Acute) Screening for diabetes mellitus (DM) (Acute) Intermittent left-sided chest pain (Acute) PVD (peripheral vascular disease) (Acute) MDD (major depressive disorder) (Acute) Smoker (Acute) Annual physical exam (Acute) Hot flashes (Acute) Insomnia (Acute) Past Medical History Medical History (Updated 06/13/21 @ 05:48 by Zack Parker MD) Atypical ductal hyperplasia of right breast Colon cancer screening Depression History of ADHD History of urinary incontinence HTN (hypertension) Hyperlipidemia Family History Family History Father GERD (gastroesophageal reflux disease) Stroke Mother Diabetes GERD (gastroesophageal reflux disease) Depression Hypertension Fibromyalgia Mental health disorder Maternal Grandmother Dementia Uterine cancer Mental health disorder Son Autism Mental health disorder Sister Breast cancer Maternal Aunt Breast cancer Surgical History Surgical History (Updated 06/15/21 @ 12:58 by Zack Parker MD) History of elbow surgery S/P lumpectomy, right breast (06/15/21) Social History Social History Housing: Apartment Alcohol intake: current Alcohol intake frequency: a few times a week Alcohol type: hard liquor Patient Tobacco Use Status: Current everyday Tobacco user Tobacco use type: Cigarette Cigarettes Per Day: 5 e-Cigarette/Vaping Use: Never Used Advance Directives Date on File: 06/15/21 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 Sexual orientation: Straight/Heterosexual Gender identity: Female Meds Allergies Allergy/AdvReac Type Severity Reaction Status Date / Time Sulfa (Sulfonamide Allergy Severe Anaphylaxis Verified 06/09/21 13:47 Antibiotics) [SULFA(SULFONAMIDE ANTIBIOTICS)] aspirin AdvReac Intermediate Gastrointestinal Verified 06/09/21 13:46 Upset Home Medications Medication Instructions Recorded Confirmed Last Taken Type magnesium sulfate 100 mg capsule 100 mg PO DAILY 03/22/20 06/03/21 Unknown History omega 3,6,9 combination no.7 92 mg mg PO 03/22/20 06/03/21 Unknown History (43 mg-22 [id number]) chew tablet vitamin E 200 unit capsule 200 unit PO DAILY 03/22/20 06/03/21 Unknown History vitamin B complex (B 1 tab PO DAILY 06/14/20 06/03/21 Unknown History Complex-Vitamin B12) turmeric 400 mg capsule mg PO 05/10/21 06/03/21 Unknown History Exam Exam Date and Time: June 14, 2021 0943 Height,Weight and Vital Signs: Height 5 ft 6 in Weight 82.611 kg Narrative Narrative: Holter 05/2020 Basic rhythm Normal sinus rhythm No long pause or profound bradycardia No dangerous dysrhythm periods Patient did not report any symptoms in the diary ECHO 05/2020 Conclusions: - The left ventricular systolic function is normal.? The visually estimated ejection fraction is between 60-65%. ? - No obvious valvular pathology seen on this study.?? Stress 05/2020 NM cardiolite stress test Impression: ? 1.? Normal myocardial perfusion 2.? Gated LVEF is 67% 3. Transient ischemic dilatation not present ? Stress EKG is negative for ischemia Assessment and Plan Assessment Anesthesia Assessment: Chart Reviewed Documented by User: Sorin Sethi 06/15/21 15:33 [facility] Past Medical History Medical History (Updated 06/13/21 @ 05:48 by Zack Parker MD) Atypical ductal hyperplasia of right breast Colon cancer screening Depression History of ADHD History of urinary incontinence HTN (hypertension) Hyperlipidemia Family History Family History Father GERD (gastroesophageal reflux disease) Stroke Mother Diabetes GERD (gastroesophageal reflux disease) Depression Hypertension Fibromyalgia Mental health disorder Maternal Grandmother Dementia Uterine cancer Mental health disorder Son Autism Mental health disorder Sister Breast cancer Maternal Aunt Breast cancer Family history of problems with anesthesia: Yes (Daughter with h/o awareness under anesthesia ) Surgical History Surgical History (Updated 06/15/21 @ 12:58 by Zack Parker MD) History of elbow surgery S/P lumpectomy, right breast (06/15/21) History of Problems with Anesthesia: No Social History Social History Housing: Apartment Alcohol intake: current Alcohol intake frequency: a few times a week Alcohol type: hard liquor Patient Tobacco Use Status: Current everyday Tobacco user Tobacco use type: Cigarette Cigarettes Per Day: 5 e-Cigarette/Vaping Use: Never Used Advance Directives Date on File: 06/15/21 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 Sexual orientation: Straight/Heterosexual Gender identity: Female Meds Allergies Allergy/AdvReac Type Severity Reaction Status Date / Time Sulfa (Sulfonamide Allergy Severe Anaphylaxis Verified 06/09/21 13:47 Antibiotics) [SULFA(SULFONAMIDE ANTIBIOTICS)] aspirin AdvReac Intermediate Gastrointestinal Verified 06/09/21 13:46 Upset Home Medications Medication Instructions Recorded Confirmed Last Taken Type magnesium sulfate 100 mg capsule 100 mg PO DAILY 03/22/20 06/03/21 Unknown History omega 3,6,9 combination no.7 92 mg mg PO 03/22/20 06/03/21 Unknown History (43 mg-22 [id number]) chew tablet vitamin E 200 unit capsule 200 unit PO DAILY 03/22/20 06/03/21 Unknown History vitamin B complex (B 1 tab PO DAILY 06/14/20 06/03/21 Unknown History Complex-Vitamin B12) turmeric 400 mg capsule mg PO 05/10/21 06/03/21 Unknown History Exam Airway Mallampati Class: III TM Dist: >3cm Neck ROM: Full Loose/Missing/Broken Teeth: Yes (Fillings ) Heart: rrr Lungs: bl breath sounds Assessment and Plan Assessment Anesthesia Assessment: Anesthesia Plan Discussed Final Anesthetic Review Family History of Problems with Anesthesia: Yes (Daughter with h/o awareness under anesthesia ) History of Problems with Anesthesia: No NPO: Yes ASA Class: III Final Preanesthetic Review: Meds/Allgs Chart Reviewed, Consent Obtained/Reviewed and Anes Risks/Benef Reviewed Patient Risk: Intermediate Procedure Risk: Intermediate Anesthetic Plan Anesthetic Plan: GA Disposition: Standard PACU
[2021-06-15] VITALS (7 sets, daily range): BP systolic 109–127; BP diastolic 69–80; PULSE 68–82; RESP 16–17; TEMP 36.6–37.2; O2SAT 96–100; BMI 31.6
--- NOTE | ~2021-06-15 | MM_ITS ---
EXAMINATION: MM MAMMOGRAM GUIDED NEEDLE LOCALIZATION BREAST, RIGHT MM NEEDLE LOCALIZATION SPECIMEN FROM THE RIGHT BREAST CLINICAL INFORMATION: Right stereotactic biopsy 05/31/2021 for calcifications (atypical ductal hyperplasia). COMPARISON: Mammography 05/31/2021, 05/18/2021, 05/10/2021, 03/22/2020 TECHNIQUE NEEDLE LOC: Proper informed consent is obtained from the patient after discussion of the procedure, potential risks and complications, and alternatives including declining the procedure today. Patient was given an opportunity for questions. The patient appeared to understand. The patient consented to the procedure and signed the consent form. GUIDANCE: Digital mammography. APPROACH: Cranio-caudal. TARGET: T shaped biopsy clip marker mid 12:00 right breast. ANESTHESIA: Carbonated lidocaine 1%: 6 mL. LOCALIZATION MARKER: [employer]. 7.5 cm length. The skin is prepped and local anesthesia administered. The needle is positioned and position assessed with mammography. The wire is hooked into position. Tigrett needle protector placed. The patient tolerated the procedure well and had no immediate complication. Procedure findings called to medical staff credentialing coordinator (bj) for Dr. Parker prior to surgery. TECHNIQUE SPECIMEN RADIOGRAPH: Imaging of the excised specimen is performed using digital mammography in 1 view. FINDINGS SPECIMEN RADIOGRAPH: The specimen shows the distal needle and distal hookwire are delivered intact in the specimen. Proximal needle sectioned in the OR prior to delivery to radiology. The biopsy clip marker and index calcifications are identified in the specimen. Results were called to Dr. Zack Parker in the operating room at the time of imaging. MM/MM needle loc RT IMPRESSION: 1. Status post right breast needle localization with wire hooked into position. 2. Post operative specimen radiograph obtained.
--- NOTE | 2021-06-15 10:31 | PC.NURSE ---
off unit to radilogy for needle loc
--- NOTE | 2021-06-15 10:51 | MHC.SHP ---
Pre-Procedural Eval Section A Date of Service: 06/15/21 The patient is an INPATIENT: No Changes since office visit: Yes Patient answered all questions; No Cold of Flu in the past 2 weeks, No New Medical Problems and No Changes in Medication The History & Physical has been completed within 30 days and I have reviewed it.: No Section B Chief Complaint: Atypical ductal hyperplasia, right breast Relevant Family History (Specify if Yes): No Relevant Social History: None Present Medications: see Short Stay Collaborative assessment Medical History: No relevant PMH History of Previous Operations: No relevant previous surgery Allergies: Allergies Allergy/AdvReac Type Severity Reaction Status Date / Time Sulfa (Sulfonamide Allergy Severe Anaphylaxis Verified 06/09/21 13:47 Antibiotics) [SULFA(SULFONAMIDE ANTIBIOTICS)] aspirin AdvReac Intermediate Gastrointestinal Verified 06/09/21 13:46 Upset Review of Systems Sugical H&P ROS: Negative: Constitution, Cardiovascular, Respiratory, Neurological, Psychiatric, Hem-Onc, Allergic/Immunologic, Gastrointestinal, Genitourinary, Musculoskeletal, Integumentary, Endocrine and Eyes/Ears/Nose/Throat Exam Surgical H&P Exam: Normal: HEENT, Normal: Heart, Normal: Lungs, Normal: Extremities, Normal: Abdomen, Normal: Skin and Normal: Neurological Plan Diagnosis/Plan: Unchanged I have reviewed the history and physical and performed a pertinent physical examination on my patient. No changes have occurred unless specified.
[2021-06-15] MEDS: Lidocaine HCl 1 % 20 ML VIAL 9 ML SUBCUT (11:44)
[2021-06-15] MEDS: Sodium Bicarbonate 8.4% 50 MEQ/50 ML VIAL SUBCUT (11:46)
--- NOTE | 2021-06-15 12:59 | P.OP_ITS ---
Operative Note Operative Note Date of Service: 06/15/21 Narrative: Preoperative diagnosis:Atypical ductal hyperplasia, right breast Postoperative diagnosis:same Procedure:Right breast lumpectomy with needle localization Surgeon: Zack Parker MD Retail Specialist: Lady Ballard PA-C Anesthesia: general LMA Indications for procedure:55 year old female with a cluster of microcalcifications in the 12 o'clock location, s/p stereotactic guided core biopsy positive for ADH. Operative findings:Marking clip and calcifications within the specimen x-ray Specimen: right breast lumpectomy Estimated blood loss: 5 mls Complications:none Procedure details: Patient was brought to the OR and placed in a supine position. After administering general anesthesia, the right breast was prepped with Chloraprep and draped in a sterile fashion. A surgical time out was called and the consent confirmed. The patient receive IV antibiotics and venodyne boots were applied. Local anesthesia was infiltrated in a circum-areolar location with 0.5% sensorcaine and a curvilinear incision created around the areola. The incision was carried down to subcutaneous tissue and superior and inferior skin flaps created. The localizing needle was placed high in the 12 0'clock location with the tip located below the nipple in the posterior breast. Dissection was continued along the superior flap up to the needle in the subcutaneous location. Dissection was continued along the medial, lateral and inferior margins. The needle hub was cut with a wire rope sales representative below the skin and the superior margin then dissected. Finally, the posterior margin was dissected and the lumpectomy removed. The specimen margins were labeled and the specimen sent to radiology and pathology for further processing. Once the margins were confirmed and the marking clip identified, the deep breast tissue was closed with 3-0 Polysorb. Dermis was reapproximated with 3-0 Polysorb. Skin was closed with a running subcuticular 4-0 Polysorb suture. Steristrips, gauze dressings and Tegaderm dressings were applied. The patient tolerated the procedure well; sponge, needle and instrument counts were reported as correct. She was transported to PACU in stable condition.
[2021-06-15] MEDS: oxyCODONE HCl Immed Release 5 MG TABLET PO (13:40)
== END 2021-06-15 15:24 | disposition home or self-care (01) ==
PROVIDERS: PCP Physician Assistant; Visit Provider Surgery
PROC: (CPT 19301; principal; 2021-06-15 11:30)
PROC: (CPT 19301; 2021-06-15 11:30)
DX: N60.91 Unspecified benign mammary dysplasia of right breast (principal); R92.8 Other abnormal and inconclusive findings on diagnostic imaging of breast; Z80.3 Family history of malignant neoplasm of breast; I10 Essential (primary) hypertension; E78.5 Hyperlipidemia, unspecified; F90.9 Attention-deficit hyperactivity disorder, unspecified type; F32.9 Major depressive disorder, single episode, unspecified; Z79.899 Other long term (current) drug therapy; Z88.2 Allergy status to sulfonamides; Z88.8 Allergy status to other drugs, medicaments and biological substances; F17.210 Nicotine dependence, cigarettes, uncomplicated
CPT/HCPCS: 19301; 19281; 88307; 88329; 88342; A4648; J0690; J1100; J2250; J2405; J3010

== ENCOUNTER → 2021-06-23 11:00 | Outpatient (BNVA) | payer OTHER, SELFPAY | PROVIDERS: PCP Physician Assistant; Referring Provider Physician Assistant; Visit Provider Surgery | DX: Z48.01 Encounter for change or removal of surgical wound dressing (principal); Z87.2 Personal history of diseases of the skin and subcutaneous tissue | CPT/HCPCS: 99211 ==

== ENCOUNTER → 2021-07-05 09:19 | Outpatient (BNVA) | payer OTHER, SELFPAY | PROVIDERS: PCP Physician Assistant; Referring Provider Physician Assistant; Visit Provider Surgery | DX: Z48.89 Encounter for other specified surgical aftercare (principal); N60.91 Unspecified benign mammary dysplasia of right breast | CPT/HCPCS: 99212 ==

== ENCOUNTER → 2021-07-19 11:00 | Outpatient (BNV) | payer OTHER, SELFPAY | PROVIDERS: PCP Physician Assistant; Referring Provider Surgery; Visit Provider Internal Medicine | DX: N60.91 Unspecified benign mammary dysplasia of right breast (principal) | CPT/HCPCS: 99203; 99214 ==

== ENCOUNTER → 2021-08-23 10:28 | Outpatient (BNVA) | payer OTHER, SELFPAY | PROVIDERS: PCP Physician Assistant; Visit Provider Advanced Practice Midwife | DX: N95.1 Menopausal and female climacteric states (principal) ==

== ENCOUNTER 2021-09-12 12:22 | Outpatient (REF) | payer OTHER, SELFPAY ==
[2021-09-12 13:23] LABS: Hematocrit 41.6 % (37.0-47.0); Hemoglobin 13.6 g/dl (12.0-16.0); Mean Corpuscular HGB Conc 32.7 g/dl (31.0-35.0); Mean Corpuscular Hemoglobin 29.3 pg (27.0-33.0); Mean Corpuscular Volume 89.7 fL (80.0-98.0); Mean Platelet Volume 12.2 fL (9.4-12.3); Platelet Count 246 X10*3/uL (160-400); Red Blood Count 4.64 X10*6/uL (4.20-5.50); Red Cell Distribution Width 13.9 % (11.0-16.0); White Blood Count 6.6 X10*3/uL (4.8-10.8)
[2021-09-12 13:41] LABS: Estimated Average Glucose 114 mg/dL; Hemoglobin A1c % 5.6 %
[2021-09-12 13:47] LABS: Alanine Aminotransferase 13 U/L (0-31); Albumin Level 4.4 g/dL (3.5-5.0); Alkaline Phosphatase 76 U/L (39-117); Anion Gap 12 (12-20); Aspartate Amino Transferase 16 U/L (5-31); Bilirubin Total 0.5 mg/dL (0.0-1.0); Blood Urea Nitrogen 15 mg/dL (9-16); Calcium 10.1 mg/dL (8.4-10.2); Carbon Dioxide 24 mmol/L (22-29); Chloride 107 mmol/L (96-108); Cholesterol 260 mg/dL; Estimated Glomerular Filt Rate > 60; Glucose Fasting 94 mg/dL (60-99); HDL Cholesterol 68 mg/dL; LDL Cholesterol Calculated 176 mg/dl; Potassium 4.2 mmol/L (3.3-5.1); Sodium 139 mmol/L (135-145); Total Protein 7.1 g/dL (6.5-8.0); Triglycerides 81 mg/dL
[2021-09-12 13:59] LABS: Creatinine Urine 241.05 mg/dL; Microalbum/Creatinine Ratio Ur 6.6 ug/mg cr
[2021-09-12 14:15] LABS: TSH reflex Free T4 0.92 uIU/mL (0.32-4.0); Vitamin D 25-OH Total 19.6 ng/mL (>30)
[2021-09-13 20:03] LABS: Follicle Stimulating Hormone 101.6 mIU/mL
== END 2021-09-12 12:23 | disposition home or self-care (01) ==
LOC: HO.LAB 12:22
PROVIDERS: Absent Provider Physician Assistant; PCP Physician Assistant; Visit Provider Advanced Practice Midwife
DX: Z13.1 Encounter for screening for diabetes mellitus (principal); Z13.220 Encounter for screening for lipoid disorders; I10 Essential (primary) hypertension; E55.9 Vitamin D deficiency, unspecified; N95.1 Menopausal and female climacteric states
CPT/HCPCS: 36415; 80053; 80061; 82043; 82306; 83001; 83036; 84443; 85027

== ENCOUNTER 2021-09-14 13:03 | Outpatient (REF) | payer OTHER, SELFPAY ==
--- NOTE | ~2021-09-14 | MM_ITS ---
EXAMINATION: BONE DENSITOMETRY CLINICAL INDICATION: Postmenopausal bone loss. COMPARISON: None (current study represents initial baseline exam). TECHNIQUE: Using a [employer] DXA System (software version: 13.1) manufactured by [employer], dual-energy x-ray absorptiometry was performed of the lumbar spine and left hip. The images are of good technical quality. Summary results are attached. FINDINGS: AP SPINE L1-L3 (excluding L4): The data of L1-L4 has been changed to exclude the L4 vertebral body, because of metallic navel artifact overlying this level may cause overestimation of lumbar spine density. BMD 1.273 g/cm2, Z-score 1.1, T-score 0.9, normal. LEFT FEMUR, NECK: BMD 0.762 g/cm2, Z-score -1.3, T-score -2.0, osteopenia. LEFT FEMUR, TOTAL: BMD 0.867 g/cm2, Z-score -0.8, T-score -1.1, osteopenia. IDENTIFIED RISK FACTORS: Menopause, tobacco use (current smoker). HISTORY OF FRACTURE: None listed. MEDICATIONS: Vitamin D. MM/XR DEXA axial skeleton IMPRESSION: 1. DIAGNOSIS: Osteopenia based on the lowest T-score value of -2.0 in the femoral neck applying World Health Organization criteria. 2. 10-YEAR FRACTURE RISK PREDICTION, FRAX: Major osteoporotic fracture (clinical spine, forearm, hip or shoulder) 7.7%. Hip fracture 1.5%. 3. Treatment Recommendations: NOF guidelines recommend consideration for treatment in postmenopausal women and men age 50 and older presenting with the following: -A hip or vertebral (clinical or morphometric) fracture. -T-score less than or equal to -2.5 at the femoral neck or spine after appropriate evaluation to exclude secondary causes. -Low bone mass at the hip or spine and a 10-year fracture probability by FRAX of greater than or equal to 3% for hip fracture or greater than or equal to 20% for major osteoporotic fracture based on the [place] adapted WHO algorithm. 4. Other Recommendations: All treatment decisions require clinical judgment and consideration of individual patient factors, including patient preferences, comorbidities, previous drug use, risk factors not captured in the FRAX model (e.g. frailty, falls, vitamin D deficiency, increased bone turnover, interval significant decline in bone density) and possible under or overestimation of fracture risk by FRAX. Additional medical evaluation for secondary cause of low bone mineral density may be appropriate. FUTURE SCAN RECOMMENDATION: People with diagnosed cases of osteoporosis or at high risk for fracture should have regular bone mineral density tests. For patients eligible for Medicare, routine testing is allowed once every 2 years. The testing frequency can be increased to one year for patients who have rapidly progressing disease, those who are receiving or discontinuing medical therapy to restore bone mass, or have additional risk factors.
== END 2021-09-14 13:04 | disposition home or self-care (01) ==
LOC: HO.MAMMO 13:03
PROVIDERS: Visit Provider Internal Medicine
DX: Z13.820 Encounter for screening for osteoporosis (principal); N60.91 Unspecified benign mammary dysplasia of right breast; Z78.0 Asymptomatic menopausal state; M85.80 Other specified disorders of bone density and structure, unspecified site
CPT/HCPCS: 77080

== ENCOUNTER 2021-10-19 08:44 | Outpatient (REF) | payer OTHER, SELFPAY ==
--- NOTE | ~2021-10-19 | MR_ITS ---
EXAMINATION: MR BREAST WITHOUT AND WITH CONTRAST, BILATERAL CLINICAL INFORMATION: Recent excision right breast atypia 12:00. High-risk screening. Sr. with premenopausal breast cancer. Maternal aunt with postmenopausal breast cancer. COMPARISON: Screening mammography 05/10/2021 and subsequent diagnostic imaging. TECHNIQUE: Imaging was performed with a dedicated breast coil. Prior to the administration of contrast, bilateral axial T1 and bilateral axial T2 weighted sequences were obtained. After the uneventful administration of?7.5 mL of Gadavist, dynamic contrast-enhanced VIBRANT series through the breasts in the axial plane were performed. Subtracted images were performed and reviewed. A delayed sagittal sequence through both breasts was acquired. Additionally, CAD post-processing, including maximum intensity projections, 3-D reconstructions and kinetic analysis, were performed an independent workstation and reviewed by the interpreting radiologist is a portion of this exam. FINDINGS: The breasts are comprised of scattered fibroglandular elements. The tissue undergoes minor background enhancement. LEFT BREAST: There is a 6 mm heterogeneously enhancing oval mass on the left at 6:00 (series 101 image 74/[id number]) projecting 5 cm from the nipple on sagittal reformats. Finding is T2 bright but with type II plateau enhancement kinetics. In light of personal and family history, biopsy is advised. Recommend MR directed diagnostic second look ultrasound with biopsy is indicated. RIGHT BREAST: Architectural distortion and susceptibility artifact in the retroareolar and 12:00 right breast from recent excision of atypia. No abnormal associated enhancement, aside from background enhancement. There is a 10 mm linear ductal nonmass enhancement on the right at 5:00 (series 101 image [id number]) projecting 4 cm from the nipple. Finding is T2 isointense with type I progressive enhancement kinetics. There is no suspicious internal mammary chain or axillary adenopathy. Limited views of the chest and abdomen are unremarkable. MR/MR breast BI wo/w con IMPRESSION: 1. A heterogeneously enhancing 6 mm left breast mass at 6:00. 2. A 10 mm linear ductal nonmass enhancement right breast 5:00. 3. Postsurgical changes right breast 12:00 from excision of ductal atypia. ASSESSMENT: LEFT BREAST: BI-RADS 4, suspicious finding RIGHT BREAST: BI-RADS 4, suspicious finding. RECOMMENDATIONS: 1. Recommend biopsy of left breast 6 lesion. Recommend MR directed diagnostic second look ultrasound followed by ultrasound or MR biopsy is indicated. 2. Recommend MR guided biopsy linear ductal nonmass enhancement right breast 5:00.
== END 2021-10-19 08:45 | disposition home or self-care (01) ==
LOC: HO.MRI 08:44
PROVIDERS: Visit Provider Surgery
DX: N60.91 Unspecified benign mammary dysplasia of right breast (principal)
CPT/HCPCS: 77049; A9585

== ENCOUNTER → 2021-10-24 09:42 | Outpatient (BNVA) | payer OTHER, SELFPAY | PROVIDERS: PCP Physician Assistant; Visit Provider Internal Medicine | DX: M51.16 Intervertebral disc disorders with radiculopathy, lumbar region (principal); M47.816 Spondylosis without myelopathy or radiculopathy, lumbar region | CPT/HCPCS: 99202 ==

== ENCOUNTER 2021-10-27 09:17 | Outpatient (REF) | payer OTHER, SELFPAY ==
--- NOTE | ~2021-10-27 | MM_ITS ---
EXAMINATION: US DIAGNOSTIC SECOND LOOK ULTRASOUND BREAST, LEFT US ULTRASOUND-GUIDED BIOPSY BREAST, LEFT MM POST PROCEDURE DIGITAL BREAST TOMOSYNTHESIS, LEFT CLINICAL INFORMATION: High risk screening MRI demonstrates 6 mm T2 high signal enhancing lesion left breast 6:00 position 5 cm from nipple. Second look ultrasound recommended with biopsy. Linear ductal non mass enhancement contralateral right breast for MR guided biopsy also recommended. Personal history contralateral right breast atypical ductal hyperplasia with subsequent right excision 06/15/2021. Family history breast cancer, sister. COMPARISON: MR guided biopsy. US BREAST, LEFT TECHNIQUE: Ultrasound of the left breast is performed with real-time duran scale imaging and color Doppler. Imaging is targeted to the inferior breast using the recent MRI for additional guidance. FINDINGS: There is an oval 6 x 4 mm hypoechoic nodule with some fine internal septation and scant peripheral or internal color flow 6:00 left breast mid depth. No posterior shadowing. There are no other cystic or solid masses or architectural abnormality. The finding is similar to the location and size of the finding on recent high risk screening breast MRI. US BIOPSY BREAST, LEFT FINDINGS: Proper informed consent is obtained from the patient after discussion of the procedure, potential risks and complications, and alternatives. Patient was given an opportunity for questions. The patient appeared to understand. The patient consented to the procedure and signed the consent form. LOCATION: Mid 6:00 position. GUIDANCE: Ultrasound-guided; aseptic technique. LESION: Hypoechoic nodule 6 x 4 mm with mild associated color flow. Differential considerations include adenosis, apocrine metaplasia, PASH, fibroadenoma, other. APPROACH: Medial lateral. ANESTHESIA: 8 mL carbonated 1% lidocaine. DERMATOTOMY: Single skin jose dermatotomy performed. NEEDLE: 14-gauge Achieve core biopsy device with 13.5-gauge co-axial guide needle. CORES: 5. CLIP: HydroMARK; shape: butterfly. POST PROCEDURE DIGITAL BREAST TOMOSYNTHESIS, LEFT: The post biopsy mammogram is performed in separate room using separate digital breast tomosynthesis equipment from the biopsy procedure. CC and ML views are obtained. Synthesized images are generated from the tomosynthesis. There are scattered areas of fibroglandular density (breast composition category: b). The clip marker is in position, in expected vicinity to the left breast MR finding. No gross hematoma. The patient tolerated the procedure well. No immediate complications. Home instructions reviewed with the patient. Final pathology results are pending. MM/MM tomosynthesis diagnostic LT IMPRESSION: 1. Status post diagnostic second look left breast ultrasound. 2. Ultrasound-guided core biopsy left breast. Clip placed: HydroMARK; shape: butterfly. 3. Pathology pending. An addendum report will be issued.
[2021-10-27] MEDS: Lidocaine HCl 1 % 20 ML VIAL 9 ML SUBCUT (11:26)
[2021-10-27] MEDS: Sodium Bicarbonate 8.4% 50 MEQ/50 ML VIAL SUBCUT (11:27)
== END 2021-10-27 09:18 | disposition home or self-care (01) ==
LOC: HO.MAMMO 09:17
PROVIDERS: Visit Provider Surgery
DX: R92.8 Other abnormal and inconclusive findings on diagnostic imaging of breast (principal); N60.91 Unspecified benign mammary dysplasia of right breast
CPT/HCPCS: 19083; 76642; 77061; 77065; 88305

== ENCOUNTER 2021-11-01 07:40 | Outpatient (REF) | payer OTHER, SELFPAY ==
--- NOTE | ~2021-11-01 | MM_ITS ---
EXAMINATION: MR GUIDED VACUUM-ASSISTED CORE BIOPSY BREAST, RIGHT MM DIGITAL MAMMOGRAPHY POST BIOPSY, RIGHT CLINICAL INFORMATION: High risk screening MRI demonstrates 10 mm linear ductal non-mass enhancement right breast lower inner quadrant approximately 4 cm from nipple. Family history premenopausal breast cancer, sister. Personal history right breast atypical ductal hyperplasia status post excision 06/15/2021. Recent benign ultrasound-guided second look contralateral left breast ultrasound-guided biopsy 10/27/2021 (PASH, apocrine metaplasia, fibrocystic change). COMPARISON: MRI breasts 10/19/2021, mammography 05/10/2021, ultrasound-guided breast biopsy 10/27/2021. TECHNIQUE/PROCEDURE: Informed consent was obtained from the patient after discussion of the benefits, risks, and alternatives to biopsy today. Patient appeared to understand. Gave opportunity for questions. Patient signed consent form. Biopsy is performed under MRI guidance using breast surface coil. Imaging is performed without and with use of 7.5 mL Gadavist gadolinium contrast. [employer] introducer localization system is used with grid. LESION: 10 mm linear non mass enhancement lower inner right breast. LOCAL ANESTHESIA: 8 mL carbonated 1% lidocaine; 12 mL 1% lidocaine with epinephrine. NEEDLE: [email or web address] 9-gauge vacuum assisted core biopsy device. APPROACH: Lateral medial. CORES: 12. CLIP: TriMark cylinder shaped. POSTPROCEDURE UNILATERAL DIGITAL MAMMOGRAM: Mammography is performed using digital mammography in CC and LM views. There are scattered areas of fibroglandular density (ACR BI-RADS breast composition Category b). The clip marker is in position. No gross hematoma. The patient tolerated the procedure well. No immediate complications. Home instructions reviewed with the patient. Final pathology results are pending. MM/MM diagnostic mammo unilat RT IMPRESSION: 1. Status post MRI guided vacuum-assisted core biopsy right breast with clip placement. 2. Final pathology results pending. An addendum report will be issued.
[2021-11-01] MEDS: Lidocaine HCl 1%/Epi 1:100,000 20 ML VIAL INFILTRATI (09:45)
[2021-11-01] MEDS: Sodium Bicarbonate 8.4% 50 MEQ/50 ML VIAL SUBCUT (09:46)
[2021-11-01] MEDS: Lidocaine HCl 1 % MPF 5 ML VIAL SUBCUT ×2 (09:47→09:48)
== END 2021-11-01 07:41 | disposition home or self-care (01) ==
LOC: HO.MRI 07:40
PROVIDERS: Visit Provider Surgery
DX: R92.8 Other abnormal and inconclusive findings on diagnostic imaging of breast (principal); N60.91 Unspecified benign mammary dysplasia of right breast; Z80.3 Family history of malignant neoplasm of breast
CPT/HCPCS: 19085; 77062; 77065; 88305; A4648; A9585

== ENCOUNTER 2021-11-30 13:30 | Outpatient (REF) | payer OTHER, SELFPAY ==
--- NOTE | ~2021-11-30 | US_ITS ---
EXAMINATION: US PELVIS CLINICAL INFORMATION: Abnormal uterine and vaginal bleeding COMPARISON: None TECHNIQUE: Ultrasound of the pelvis is performed using both transabdominal and transvaginal transducers along with Doppler. Transvaginal imaging is performed due to inadequate visualization transabdominally. FINDINGS: Uterus: The uterus is anteverted, anteflexed and measures 6.5 cm in length, 2.6 mL in AP and 3.1 cm in transverse dimension. The double wall endometrial thickness is 0.4 cm. The uterus is smooth in contour and has normal myometrial echogenicity. No visible fibroid. Adnexa: Both ovaries are visualized better on transabdominal ultrasound. There is normal color flow to the adnexa. There is no ovarian torsion. There is no pelvic ascites or fluid collection. Right ovary measures 2.1 x 1.0 x 1.0 cm and volume 1.1 mL. It appears unremarkable. Previously right ovary measured 4.8 x 2.7 x 3.1 cm. Left ovary measures 1.8 x 1.0 x 1.5 cm and volume 1.4 mL. It appears unremarkable. Previously left ovary measured 3.2 x 2.2 x 2.4 cm. There is no free fluid in the cul-de-sac US/US pelvic and transvaginal IMPRESSION: Unremarkable ovaries. Unremarkable uterus and cervix.
== END 2021-11-30 13:31 | disposition home or self-care (01) ==
LOC: HO.US 13:30
PROVIDERS: Visit Provider Advanced Practice Midwife
DX: N93.9 Abnormal uterine and vaginal bleeding, unspecified (principal); N95.1 Menopausal and female climacteric states
CPT/HCPCS: 76830; 76856

== ENCOUNTER → 2021-12-13 10:12 | Outpatient (BNVA) | payer OTHER, SELFPAY | PROVIDERS: PCP Physician Assistant; Visit Provider Advanced Practice Midwife | DX: Z71.2 Person consulting for explanation of examination or test findings (principal) | CPT/HCPCS: 99212 ==

== ENCOUNTER 2021-12-28 07:24 | Outpatient (REF) | payer OTHER, SELFPAY ==
--- NOTE | ~2021-12-28 | FL_ITS ---
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 COMPARISON: None TECHNIQUE: Fluoroscopy performed by Dr. Damian Gutierres. Fluoroscopy Time: 0.3 minutes. Cumulative Dose: 8.37 mGy. DAP: 1.57 Gy-cm2. Images: 3. FINDINGS: [place] and contrast are seen in the region of foramina bilaterally L3-L4, L4-L5, and L5-S1. FL/FL guidance in treatment room IMPRESSION: Fluoroscopy for pain management procedure.
== END 2021-12-28 07:25 | disposition home or self-care (01) ==
LOC: HO.RADIR 07:24
PROVIDERS: Visit Provider Internal Medicine
DX: M47.816 Spondylosis without myelopathy or radiculopathy, lumbar region (principal)
CPT/HCPCS: 64493; 64494

== ENCOUNTER 2022-02-20 09:09 | Outpatient (REF) | payer OTHER, SELFPAY ==
[2022-02-20 09:41] LABS: Blood Urea Nitrogen 16 mg/dL (9-16); Cholesterol 264 mg/dL; Estimated Glomerular Filt Rate > 60; HDL Cholesterol 65 mg/dL; LDL Cholesterol Calculated 184 mg/dl; Triglycerides 76 mg/dL
== END 2022-02-20 09:10 | disposition home or self-care (01) ==
LOC: HO.LAB 09:09
PROVIDERS: Absent Provider Surgery; PCP Physician Assistant; Visit Provider Physician Assistant
DX: N60.91 Unspecified benign mammary dysplasia of right breast (principal); R92.8 Other abnormal and inconclusive findings on diagnostic imaging of breast; E78.2 Mixed hyperlipidemia
CPT/HCPCS: 36415; 80061; 82565; 84520

== ENCOUNTER → 2022-07-24 15:11 | Outpatient (BNVA) | payer OTHER, SELFPAY | PROVIDERS: PCP Physician Assistant; Visit Provider Surgery | DX: N60.91 Unspecified benign mammary dysplasia of right breast (principal) | CPT/HCPCS: 99212 ==

== ENCOUNTER 2022-08-28 09:01 | Outpatient (REF) | payer OTHER, SELFPAY ==
--- NOTE | ~2022-08-28 | MM_ITS ---
EXAMINATION: MM SCREENING DIGITAL BREAST TOMOSYNTHESIS, BILATERAL CLINICAL INFORMATION: Screening. Asymptomatic. Prior history right ADH, post excision 06/15/2021. Benign right MR guided biopsy 11/01/2021 (focal fibrocystic changes; no atypia or malignancy). Due for yearly. Benign left ultrasound guided biopsy 10/27/2021 (fibrocystic changes, PASH, apocrine metaplasia). COMPARISON: Multiple prior breast imaging exams including most recent right mammography 11/01/2021 and most recent left mammography 10/27/2021. TECHNIQUE: Digital breast tomosynthesis is performed in both the craniocaudal and mediolateral oblique views along with computer-aided detection (CAD). Synthesized 2D images are generated from the tomosynthesis. FINDINGS: There are scattered areas of fibroglandular density (ACR BI-RADS breast composition Category b). There is no developing density or interval mass or architectural abnormality or abnormal calcifications. Biopsy clip marker is present left breast mid lower inner quadrant and right breast mid lower inner quadrant, respectively. There is some minor scarring central posterior right breast on CC view corresponding to area of excisional biopsy 06/15/2021. The axilla and skin contours are unremarkable. There are no significant changes. MM/MM tomosynthesis screening BI IMPRESSION: No mammographic evidence of malignancy. ASSESSMENT: BI-RADS 2: Benign RECOMMENDATION: Routine annual mammography screening. This patient's information was entered into a reminder system with a target due date for their next mammogram.
== END 2022-08-28 09:02 | disposition home or self-care (01) ==
LOC: HO.MAMMO 09:01
PROVIDERS: Visit Provider Physician Assistant
DX: Z12.31 Encounter for screening mammogram for malignant neoplasm of breast (principal)
CPT/HCPCS: 77063; 77067

== ENCOUNTER 2022-10-01 16:31 | Emergency (ER) | payer OTHER, SELFPAY ==
--- NOTE | ~2022-10-01 | XR_ITS ---
EXAMINATION: XR WRIST, RIGHT CLINICAL INFORMATION: Fall COMPARISON: Right hand 05/05/2012 TECHNIQUE: PA, lateral, oblique, and scaphoid views of the right wrist. FINDINGS: There is a comminuted fracture involving the distal radius extending into the radiocarpal joint. There is some minimal impaction and dorsal angulation of the distal fracture fragment. No other fractures are seen. There is a cyst in the navicular which appears slightly larger than it did in 2012. XR/XR wrist RT min 3V IMPRESSION: Comminuted distal radial fracture with intra-articular extension.
[2022-10-01 16:38] VITALS: BP 139/114; PULSE 74; RESP 18; TEMP 37.1; O2SAT 97; BMI 26.9
--- NOTE | 2022-10-01 18:11 | ED_ITS ---
HPI - Extremity Problem General Chief complaint: Extremity Injury, Upper Stated complaint: Fell hurt right arm Time Seen by Provider: 10/01/22 17:54 Source: patient, RN notes reviewed and old records reviewed Mode of arrival: ambulatory Limitations: no limitations History of Present Illness HPI Narrative: 57-year-old female presents for evaluation of right wrist pain. Patient was trying on new roller blades when she slipped backwards She fell onto an outstretched right hand to break her fall She has 7/10 pain to the right wrist Denies any her head or losing consciousness She is not on any blood thinners Related Data Home Medications Medication Instructions Recorded Confirmed omega 3,6,9 combination no.7 92 mg 92 mg PO DAILY 03/22/20 08/21/22 (43 mg-22 [id number]) chew tablet vitamin E 200 unit capsule 200 unit PO DAILY 03/22/20 08/21/22 vitamin B complex (B 1 tab PO DAILY 06/14/20 08/21/22 Complex-Vitamin B12 tablet) turmeric 400 mg capsule 400 mg PO DAILY 05/10/21 08/21/22 biotin 1,000 mg PO DAILY 10/26/21 08/21/22 magnesium citrate 100 mg capsule 100 mg PO DAILY 12/13/21 08/21/22 Previous Rx's Medication Instructions Recorded atomoxetine 40 mg capsule 40 mg PO DAILY 90 days #90 caps 08/21/22 (Strattera) bupropion HCl 150 mg tablet,12 hr 150 mg PO BID 30 days #60 caps 08/21/22 sustained-release cholecalciferol (vitamin D3) 25 25 mcg PO DAILY #90 caps 08/21/22 mcg (1,000 unit) capsule (Vitamin D3) desonide 0.05 % topical cream 1 appl topical DAILY 15 days #15 08/21/22 grams hydrochlorothiazide 12.5 mg capsule 12.5 mg PO QAM #30 caps 08/21/22 nicotine (polacrilex) 2 mg gum 2 mg buccal Q2H PRN nicotine 08/21/22 cravings 30 days #110 ea propranolol 60 mg capsule,24 60 mg PO DAILY 30 days #30 caps 08/21/22 hr,extended release zolpidem 10 mg tablet 10 mg PO BEDTIME 30 days #30 tabs 08/21/22 oxycodone 5 mg tablet 5 mg PO Q6H PRN severe pain (scale 10/01/22 score 7-10) #12 tabs Allergies Allergy/AdvReac Type Severity Reaction Status Date / Time Sulfa (Sulfonamide Allergy Severe Anaphylaxis Verified 08/21/22 08:59 Antibiotics) [SULFA(SULFONAMIDE ANTIBIOTICS)] aspirin AdvReac Intermediate Gastrointestinal Verified 08/21/22 08:59 Upset Review of Systems Constitutional: Constitutional: Reports as per HPI Musculoskeletal: Musculoskeletal: Reports arthralgias, Reports joint swelling and Reports limited range of motion Neurologic: Denies focal weakness [facility] Past Medical History Medical History (Updated 10/01/22 @ 18:16 by Lonnie Bernard) Colon cancer screening Depression History of ADHD History of urinary incontinence HTN (hypertension) Surgical History History of elbow surgery S/P lumpectomy, right breast (06/15/21) Family History Family History Father GERD (gastroesophageal reflux disease) Stroke Mother Diabetes GERD (gastroesophageal reflux disease) Depression Hypertension Fibromyalgia Mental health disorder Maternal Grandmother Dementia Uterine cancer Mental health disorder Son Autism Mental health disorder Sister Breast cancer Maternal Aunt Breast cancer Social History Social History Household Members: Family Housing: Apartment Are you a primary respiratory care instructor to a significant other at home: No Do you presently have visiting nurse or other home services: No Alcohol intake: current Alcohol intake frequency: a few times a week Alcohol type: hard liquor Patient Tobacco Use Status: Current everyday Tobacco user Tobacco use type: Cigarette e-Cigarette/Vaping Use: Never Used Advance Directives: Yes Advance Directives on File: No Advance Directives Date on File: 06/15/21 service: No Current occupational status: employed 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 Sexual orientation: Straight/Heterosexual Gender identity: Female Cognitive needs: No Hearing needs: No Vision needs: No Physical Exam Vital Signs: Vital Signs: Last Vital Signs Temp 98.8 F 10/01/22 16:38 Pulse 74 10/01/22 16:38 Resp 18 10/01/22 16:38 BP 139/114 H 10/01/22 16:38 Pulse Ox 97 10/01/22 16:38 O2 Del Method Room Air 10/01/22 16:38 BMI result Body Mass Index 26.9 Const: General: healthy appearing, comfortable, no acute distress, alert and awake Nutritional Appearance: well nourished Orientation/consciousness: patient oriented x3 HEENT: Head: Yes normocephalic and Yes atraumatic Eyes: Eyelids: Yes eyelids normal Conjunctivae: conjunctivae normal Sclerae: sclerae normal Corneas: corneas normal Pupils: Equal, round and reactive pupils present EOM: EOMs intact bilaterally Neck: Neck: Yes full ROM Resp: Effort & Inspection: normal respiratory effort, able to speak in complete sentences and not labored Neuro: General: patient oriented x3 Cranial nerves: Yes Equal, round and reactive pupils present and Yes Bilaterally intact EOM present Cognition (Neuro): normal cognition Extrem: Other: Patient has edema with tenderness to the right distal radius with obvious deformity. She is able to move all fingers of the right hand. Course Reevaluation(s) Reevaluation #1: Patient had a ring on her right 3rd and right 4th fingers that were removed prior to splinting. Tells able to remove them with lubrication Medical Decision Making Medical Decision Making MDM Narrative: 57-year-old female presents for evaluation of a right wrist injury after a fall. X-ray confirms a right distal radius fracture. The patient will be splinted and discharged to follow-up with orthopedics. Differential Diagnosis Differential Diagnoses: The differential diagnosis associated with the presentation includes Acute right radius fracture Acute ulnar fracture Wrist contusion Wrist sprain Dislocation Procedures Orthopedic Splinting/Casting Injury #1: Side: right Upper Extremity Injury Location: wrist Upper Extremity Immobilizer: sugar tong splint Discharge Plan Discharge Clinical Impression: Distal radius fracture, right Patient Disposition: Home, Self-Care Instructions: Wrist Fracture in Adults (ED) Additional Instructions: You have a fracture of your distal radius Use ibuprofen/Tylenol as needed for pain Use oxycodone for more severe, breakthrough pain This may make you sleepy, do not drink alcohol or drive after taking it Follow-up with Orthopedics, Dr. Singer Prescriptions: New oxycodone 5 mg tablet 5 mg PO Q6H PRN (Reason: severe pain (scale score 7-10)) Qty: 12 0RF Rx Instructions: Partial Fill upon patient request. No Action biotin 1,000 mg PO DAILY desonide 0.05 % cream 1 appl topical DAILY 15 Days Qty: 15 0RF nicotine (polacrilex) 2 mg gum 2 mg buccal Q2H PRN (Reason: nicotine cravings) 30 Days Qty: 110 0RF bupropion HCl 150 mg tablet sustained-release 12 hr 150 mg PO BID 30 Days Qty: 60 5RF hydrochlorothiazide 12.5 mg capsule 12.5 mg PO QAM Qty: 30 6RF propranolol 60 mg capsule,extended release 24 hr 60 mg PO DAILY 30 Days Qty: 30 6RF zolpidem 10 mg tablet 10 mg PO BEDTIME 30 Days Qty: 30 3RF cholecalciferol (vitamin D3) [Vitamin D3] 25 mcg (1,000 unit) capsule 25 mcg PO DAILY Qty: 90 2RF atomoxetine [Strattera] 40 mg capsule 40 mg PO DAILY 90 Days Qty: 90 1RF omega 3,6,9 combination no.7 92 mg (43 mg-22 [id number]) tablet,chewable 92 mg PO DAILY vitamin E 200 unit capsule 200 unit PO DAILY vitamin B complex [B Complex-Vitamin B12] Tablet 1 tab PO DAILY magnesium citrate 100 mg capsule 100 mg PO DAILY turmeric 400 mg capsule 400 mg PO DAILY Referrals: Darrell Singer MD [Physician] - (right distal radius fx)
== END 2022-10-01 19:08 | disposition home or self-care (01) ==
PROVIDERS: Emergency Provider Emergency Medicine; PCP Physician Assistant
DX: S52.501A Unspecified fracture of the lower end of right radius, initial encounter for closed fracture (principal); F17.210 Nicotine dependence, cigarettes, uncomplicated; W18.30XA Fall on same level, unspecified, initial encounter; Y93.9 Activity, unspecified; Y92.9 Unspecified place or not applicable; Y99.9 Unspecified external cause status; Z79.899 Other long term (current) drug therapy; Z71.6 Tobacco abuse counseling
CPT/HCPCS: 29125; 73110; 99283

== ENCOUNTER 2022-10-09 11:18 | Outpatient (REF) | payer OTHER, SELFPAY ==
--- NOTE | ~2022-10-09 | XR_ITS ---
EXAMINATION: XR WRIST, RIGHT CLINICAL INFORMATION: Pain COMPARISON: Wrist radiographs 09/23/2022 TECHNIQUE: PA, lateral, and oblique views of the right wrist. FINDINGS: Redemonstration of a minimally comminuted intra-articular fracture of the distal radius with mild dorsal angulation of the distal fracture fragments, unchanged. There is increasing periosteal reaction suggesting ongoing healing. Soft tissue swelling. Again seen is cystic change in the scaphoid. XR/XR wrist RT min 3V IMPRESSION: Redemonstration of a minimally comminuted intra-articular fracture of the distal radius with mild dorsal angulation of the distal fracture fragments, unchanged in alignment. There is increasing periosteal reaction suggesting ongoing healing.
== END 2022-10-09 11:19 | disposition home or self-care (01) ==
LOC: HO.HOSX 11:18
PROVIDERS: Visit Provider Physician Assistant
DX: S52.501A Unspecified fracture of the lower end of right radius, initial encounter for closed fracture (principal); X58.XXXA Exposure to other specified factors, initial encounter; Y93.9 Activity, unspecified; Y92.9 Unspecified place or not applicable; Y99.9 Unspecified external cause status
CPT/HCPCS: 29085; 73110; 99202

== ENCOUNTER 2022-10-16 08:36 | Outpatient (REF) | payer OTHER, SELFPAY ==
--- NOTE | ~2022-10-16 | XR_ITS ---
EXAMINATION: XR WRIST, RIGHT CLINICAL INFORMATION: Pain. COMPARISON: Prior radiographs, most recently 10/09/2022. TECHNIQUE: PA, lateral, and oblique views of the right wrist. FINDINGS: There is stable alignment of a comminuted fracture of the distal radial metaphysis, with physeal intra-articular extension. Again, there is mild dorsal angulation at the fracture site. No significant interim new callus formation is noted. No dislocation is seen. The proximal and distal carpal rows are intact. No focal soft tissue swelling, gas or foreign body is seen. XR/XR wrist RT min 3V IMPRESSION: There is stable alignment of an intra-articular fracture of the distal right radius.
== END 2022-10-16 08:37 | disposition home or self-care (01) ==
LOC: HO.HOSX 08:36
PROVIDERS: Visit Provider Physician Assistant
DX: S52.501D Unspecified fracture of the lower end of right radius, subsequent encounter for closed fracture with routine healing (principal)
CPT/HCPCS: 29085; 73110

== ENCOUNTER → 2022-10-26 14:40 | Outpatient (BNVA) | payer OTHER, SELFPAY | PROVIDERS: PCP Physician Assistant; Visit Provider Physician Assistant | DX: S52.501A Unspecified fracture of the lower end of right radius, initial encounter for closed fracture (principal) | CPT/HCPCS: 29085 ==

== ENCOUNTER 2022-11-16 15:50 | Outpatient (AMB) | payer OTHER, SELFPAY ==
[2022-11-16 16:00] VITALS: BMI 26.9
--- NOTE | 2022-11-16 16:00 | A.OFFVIS_ITS ---
Intake Vital Signs 11/16/22 16:00 Height 5 ft 3 in Weight 152 lb BMI 26.9 Intake Visit Reasons: OV-distal radius fx Cast change-xrays Intake Note: Linda is a 57 year old female who presents today for a follow up of right distal radius fx, DOI 10/01/22. Cast off and xrays updated. 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 She had pain/discomfort for a couple of days. Allergies Sulfa (Sulfonamide Antibiotics) [SULFA(SULFONAMIDE ANTIBIOTICS)] Allergy (Severe, Verified 11/16/22 16:08) Anaphylaxis aspirin Adverse Reaction (Intermediate, Verified 11/16/22 16:08) Gastrointestinal Upset HPI OV-distal radius fx Cast change-xrays HPI Details 57-year-old female who returns to the office today for a follow-up of right distal radius fracture, 10/01/22. 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 She states she has pain and discomfort in her wrist for about 2 days. [facility] Medical History Colon cancer screening Depression History of ADHD History of urinary incontinence HTN (hypertension) Surgical History History of elbow surgery S/P lumpectomy, right breast (06/15/21) Family History Father GERD (gastroesophageal reflux disease) Stroke Mother Diabetes GERD (gastroesophageal reflux disease) Depression Hypertension Fibromyalgia Mental health disorder Maternal Grandmother Dementia Uterine cancer Mental health disorder Son Autism Mental health disorder Sister Breast cancer Maternal Aunt Breast cancer Social History Household Members: Family Housing: Apartment Are you a primary housekeeper caregiver to a significant other at home: No Do you presently have visiting nurse or other home services: No Alcohol intake: current Alcohol intake frequency: a few times a week Alcohol type: hard liquor Patient Tobacco Use Status: Current everyday Tobacco user Tobacco use type: Cigarette e-Cigarette/Vaping Use: Never Used Advance Directives Date on File: 06/15/21 service: No Current occupational status: employed 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 Sexual orientation: Straight/Heterosexual Gender identity: Female Cognitive needs: No Hearing needs: No Vision needs: No Female Reproductive History Menstrual Age of Menarche: 12 Review of Systems Const All systems reviewed & are unremarkable except as noted in HPI and below Physical Exam Vital Signs: BMI result Body Mass Index 26.9 Extrem Other: Right wrist: Normal to inspection. She has no swelling and no tenderness over the distal radius or ulna. No tenderness throughout the forearm or into the elbow. She is able to move the wrist slightly in flexion and extension with no pain in the wrist but she does have some tenderness along the forearm from the sensor tendons. NVI. Results Reviewed Results Reviewed: Xrays were obtained in the office today and personally reviewed by me of the right wrist show Comminuted distal radial fracture with intra-articular extension with stable alignment with callus formation Assessment & Plan Assessment & Plan (1) Distal radius fracture, right: Code(s): S52.501A - Unspecified fracture of the lower end of right radius, initial encounter for closed fracture Plan I did review with her the findings on x-rays today. The fracture site is still visible however it does appear to be stable from previous images. There is some callous formation that has developed. We discussed recasting vs thermal molded brace. At this time the decision was made to place her in an off the shelf thermal molded wrist brace that she will wear like a cast for the next 3 weeks. She can come out of the brace for hygiene and some very gentle ROM exercises but I strongly recommend no lifting more than a cellphone. She will see us back in 3 weeks with new x-rays, sooner if needed. Orders: Orders XR wrist RT min 3V 11/16/22 M25.531 - Pain in right wrist Patient Instructions: Scribed for Marcella Lee PA-C, by Ky Li certified medical biller, on 11/16/2022 at 3:45 PM EST. IMarcella PA-C, have personally reviewed and agree with the information entered by the scribe. Coding Level of Care Code Global (26108) Diagnoses Distal radius fracture, right S52.501A
== END 2022-11-16 16:41 | disposition home or self-care (01) ==
PROVIDERS: PCP Physician Assistant; Visit Provider Physician Assistant
DX: S52.501A Unspecified fracture of the lower end of right radius, initial encounter for closed fracture (principal)
CPT/HCPCS: 99024

== ENCOUNTER 2022-11-16 15:50 | Outpatient (REF) | payer OTHER, SELFPAY ==
--- NOTE | ~2022-11-16 | XR_ITS ---
EXAMINATION: XR WRIST, RIGHT CLINICAL INFORMATION: Pain in right wrist. COMPARISON: 10/16/2022. TECHNIQUE: PA, lateral, and oblique views of the right wrist. FINDINGS: Again seen is an intra-articular comminuted fracture involving the distal radius. Since the prior study, there has been some interval healing with periosteal reaction but complete bony fusion has not occurred. No new fractures are seen. XR/XR wrist RT min 3V IMPRESSION: Healing distal radial fracture.
== END 2022-11-16 15:51 | disposition home or self-care (01) ==
LOC: HO.HOSX 15:50
PROVIDERS: PCP Physician Assistant; Visit Provider Physician Assistant
DX: S52.501D Unspecified fracture of the lower end of right radius, subsequent encounter for closed fracture with routine healing (principal)
CPT/HCPCS: 73110

== ENCOUNTER 2022-11-17 12:21 | Outpatient (AMB) | payer OTHER, SELFPAY ==
[2022-11-17 12:28] VITALS: BMI 28.0
--- NOTE | 2022-11-17 12:28 | MHC.OFFVIS ---
Intake Vital Signs 11/17/22 12:28 Height 5 ft 3 in Weight 158 lb BMI 28.0 Intake Visit Reasons: OV-cast change Intake Note: Linda is a 57 year old female who presents today for a brace adjustment (thermal molded brace) of right distal radius fx, DOI 10/01/22 Allergies Sulfa (Sulfonamide Antibiotics) [SULFA(SULFONAMIDE ANTIBIOTICS)] Allergy (Severe, Verified 11/17/22 12:28) Anaphylaxis aspirin Adverse Reaction (Intermediate, Verified 11/17/22 12:28) Gastrointestinal Upset PFSH Medical History Colon cancer screening Depression History of ADHD History of urinary incontinence HTN (hypertension) Surgical History History of elbow surgery S/P lumpectomy, right breast (06/15/21) Family History Father GERD (gastroesophageal reflux disease) Stroke Mother Diabetes GERD (gastroesophageal reflux disease) Depression Hypertension Fibromyalgia Mental health disorder Maternal Grandmother Dementia Uterine cancer Mental health disorder Son Autism Mental health disorder Sister Breast cancer Maternal Aunt Breast cancer Social History Household Members: Family Housing: Apartment Are you a primary career development coordinator to a significant other at home: No Do you presently have visiting nurse or other home services: No Alcohol intake: current Alcohol intake frequency: a few times a week Alcohol type: hard liquor Patient Tobacco Use Status: Current everyday Tobacco user Tobacco use type: Cigarette e-Cigarette/Vaping Use: Never Used Advance Directives Date on File: 06/15/21 service: No Current occupational status: employed 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 Sexual orientation: Straight/Heterosexual Gender identity: Female Cognitive needs: No Hearing needs: No Vision needs: No Female Reproductive History Menstrual Age of Menarche: 12 Physical Exam Vital Signs: BMI result Body Mass Index 28.0 Assessment & Plan Assessment & Plan (1) Distal radius fracture, right: Code(s): S52.501A - Unspecified fracture of the lower end of right radius, initial encounter for closed fracture Plan patient came in today for brace adjustment only-claimed it was too tight; therefore, brace was placed back in thermal heater and re fit to her. Coding Level of Care Code Global (46036) Diagnoses Distal radius fracture, right S52.501A
== END 2022-11-17 12:44 | disposition home or self-care (01) ==
LOC: HO.HOS 12:21
PROVIDERS: PCP Physician Assistant; Visit Provider Physician Assistant
DX: S52.501A Unspecified fracture of the lower end of right radius, initial encounter for closed fracture (principal)
CPT/HCPCS: 99024

== ENCOUNTER → 2022-11-17 12:21 | Outpatient (BNVA) | payer OTHER, SELFPAY | PROVIDERS: PCP Physician Assistant; Visit Provider Physician Assistant ==

== ENCOUNTER 2022-12-04 08:51 | Outpatient (REF) | payer OTHER, SELFPAY ==
--- NOTE | ~2022-12-04 | XR_ITS ---
EXAMINATION: XR WRIST, RIGHT CLINICAL INFORMATION: Pain in right wrist COMPARISON: Right wrist 11/16/2022 TECHNIQUE: PA, lateral, and oblique views of the right wrist. FINDINGS: Again seen is an intra-articular comminuted fracture involving the distal radius. Since the prior study, there has been some interval healing with periosteal reaction and blurring of some of the fracture clefts but complete bony fusion has not occurred. No new fractures are seen. XR/XR wrist RT min 3V IMPRESSION: Healing distal radial fracture.
== END 2022-12-04 08:52 | disposition home or self-care (01) ==
LOC: HO.HOSX 08:51
PROVIDERS: Visit Provider Physician Assistant
DX: S52.501D Unspecified fracture of the lower end of right radius, subsequent encounter for closed fracture with routine healing (principal); M25.531 Pain in right wrist; X58.XXXD Exposure to other specified factors, subsequent encounter
CPT/HCPCS: 73110

== ENCOUNTER 2022-12-04 14:52 | Outpatient (AMB) | payer OTHER, SELFPAY ==
--- NOTE | 2022-12-04 14:56 | MHC.OFFVIS ---
Intake Vital Signs 12/04/22 14:57 Height 5 ft 3 in Weight 158 lb BMI 28.0 Intake Visit Reasons: OV- rt distal radius fx, DOI 10/01/22 Intake Note: Linda is a 57 year old female who presents today for a follow up of right distal radius fx, DOI 10/01/22. Xrays updated in office. Patient reports discomfort with brace wear, states the other day with removing brace she had a throbbing pain. Allergies Sulfa (Sulfonamide Antibiotics) [SULFA(SULFONAMIDE ANTIBIOTICS)] Allergy (Severe, Verified 12/04/22 14:58) Anaphylaxis aspirin Adverse Reaction (Intermediate, Verified 12/04/22 14:58) Gastrointestinal Upset HPI OV- rt distal radius fx, DOI 10/01/22 HPI Details 57-year-old female who returns to the office today for a follow-up of distal radius fracture, 10/01/22. She states she has discomfort with wearing the brace. She also experienced a throbbing pain with removing the brace the other day. [facility] Medical History Colon cancer screening Depression History of ADHD History of urinary incontinence HTN (hypertension) Surgical History History of elbow surgery S/P lumpectomy, right breast (06/15/21) Family History Father GERD (gastroesophageal reflux disease) Stroke Mother Diabetes GERD (gastroesophageal reflux disease) Depression Hypertension Fibromyalgia Mental health disorder Maternal Grandmother Dementia Uterine cancer Mental health disorder Son Autism Mental health disorder Sister Breast cancer Maternal Aunt Breast cancer Social History Household Members: Family Housing: Apartment Are you a primary critical care physician to a significant other at home: No Do you presently have visiting nurse or other home services: No Alcohol intake: current Alcohol intake frequency: a few times a week Alcohol type: hard liquor Patient Tobacco Use Status: Current everyday Tobacco user Tobacco use type: Cigarette e-Cigarette/Vaping Use: Never Used Advance Directives Date on File: 06/15/21 service: No Current occupational status: employed 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 Sexual orientation: Straight/Heterosexual Gender identity: Female Cognitive needs: No Hearing needs: No Vision needs: No Female Reproductive History Menstrual Age of Menarche: 12 Review of Systems Const All systems reviewed & are unremarkable except as noted in HPI and below Physical Exam Vital Signs: BMI result Body Mass Index 28.0 Extrem Other: Right wrist: Normal to inspection. She has no swelling and no tenderness over the distal radius or ulna. No tenderness throughout the forearm or into the elbow. She is able to move the wrist slightly in flexion and extension with no pain in the wrist but she does have some tenderness along the forearm from the extensor tendons. NVI. Results Reviewed Results Reviewed: Xrays were obtained in the office today and personally reviewed by me of the right wrist show Comminuted distal radial fracture with intra-articular extension with stable alignment with callus formation . Fracture line still visible. Assessment & Plan Assessment & Plan (1) Distal radius fracture, right: Code(s): S52.501A - Unspecified fracture of the lower end of right radius, initial encounter for closed fracture Plan She was transitioned to an off the shelf comfort wrist splint. An order of occupational therapy was put in to work on gentle ROM and manufacturing design engineer strength. She can increase her activity as long as she is pain free but I still encouraged her to avoid lifting anything more than 20-25 pounds and she can increase with physical therapy. I did explain to her that the fracture is still healing and is not at a point yet where it is strong. She should wear the brace when she is to perform any type of lifting or impact activities. She will see me back in 6-8 weeks with new x-rays, sooner if needed. Orders: Orders XR wrist RT min 3V Today M25.531 - Pain in right wrist OT Evaluation and Treatment Today S52.501A - Unspecified fracture of the lower end of right radius, initial encounter for closed fracture Patient Instructions: Scribed for Marcella Lee PA-C, by Ky Li emergency medical dispatcher, on 12/04/2022 at 2:45 PM EST. Marcella Patel PA-C, have personally reviewed and agree with the information entered by the scribe. Coding Level of Care Code Global (89366) Diagnoses Distal radius fracture, right S52.501A
[2022-12-04 14:57] VITALS: BMI 28.0
== END 2022-12-04 16:31 | disposition home or self-care (01) ==
PROVIDERS: PCP Physician Assistant; Visit Provider Physician Assistant
DX: S52.501A Unspecified fracture of the lower end of right radius, initial encounter for closed fracture (principal)
CPT/HCPCS: 99024

== ENCOUNTER 2023-03-19 08:47 | Outpatient (REF) | payer OTHER, SELFPAY | END 2023-03-19 08:48 | disposition home or self-care (01) | LOC: HO.HOSX 08:47 | PROVIDERS: Visit Provider Orthopaedic Surgery | DX: Z13.89 Encounter for screening for other disorder (principal) ==

== ENCOUNTER 2023-08-27 11:51 | Outpatient (REF) | payer OTHER, SELFPAY ==
[2023-08-27 12:29] LABS: Hematocrit 43.3 % (37.0-47.0); Mean Corpuscular HGB Conc 32.3 g/dl (31.0-35.0); Mean Corpuscular Volume 89.6 fL (80.0-98.0); Mean Platelet Volume 12.1 fL (9.4-12.3); Platelet Count 287 X10*3/uL (160-400); Red Blood Count 4.83 X10*6/uL (4.20-5.50); Red Cell Distribution Width 13.8 % (11.0-16.0); White Blood Count 5.6 X10*3/uL (4.8-10.8)
[2023-08-27 12:50] LABS: Creatinine Urine 91.85 mg/dL; Microalbum/Creatinine Ratio Ur 6.5 ug/mg cr (<30)
[2023-08-27 13:00] LABS: Alanine Aminotransferase 10 U/L (0-31); Albumin Level 4.3 g/dL (3.5-5.0); Alkaline Phosphatase 92 U/L (39-117); Anion Gap 12 (12-20); Aspartate Amino Transferase 14 U/L (5-31); Bilirubin Total 0.4 mg/dL (0.0-1.0); Blood Urea Nitrogen 16 mg/dL (9-16); Calcium 9.8 mg/dL (8.4-10.2); Carbon Dioxide 25 mmol/L (22-29); Chloride 108 mmol/L (96-108); Cholesterol 233 mg/dL (<200); Estimated Glomerular Filt Rate > 60; Glucose Fasting 88 mg/dL (60-99); HDL Cholesterol 77 mg/dL (>40); LDL Cholesterol Calculated 143 mg/dL (<100); Potassium 4.1 mmol/L (3.3-5.1); Sodium 141 mmol/L (135-145); Total Protein 7.4 g/dL (6.5-8.0); Triglycerides 68 mg/dL (<150)
[2023-08-27 13:15] LABS: TSH reflex Free T4 1.21 uIU/mL (0.32-4.0)
== END 2023-08-27 11:52 | disposition home or self-care (01) ==
LOC: HO.LAB 11:51
PROVIDERS: PCP Physician Assistant; Visit Provider Physician Assistant
DX: E55.9 Vitamin D deficiency, unspecified (principal); I10 Essential (primary) hypertension; E78.2 Mixed hyperlipidemia; E53.8 Deficiency of other specified B group vitamins; R53.82 Chronic fatigue, unspecified
CPT/HCPCS: 36415; 80053; 80061; 82043; 82306; 82570; 84443; 85027

== ENCOUNTER 2023-08-27 15:48 | Outpatient (AMB) | payer OTHER, SELFPAY ==
[2023-08-27 15:54] VITALS: BP 128/78; PULSE 98; O2SAT 98; BMI 30.6
--- NOTE | 2023-08-27 15:54 | MHC.PC.OV ---
Vital Signs 08/27/23 15:54 Height 5 ft 3 in Weight 173 lb BMI 30.6 BP 128/78 Blood Pressure Location Lt brachial Position Sitting Pulse 98 Pulse Source Pulse Oximeter Pulse Oximetry (%) 98 Oxygen Delivery Method Room Air Intake Visit Reasons: pe Intake Note: Patient is here today for a physical. Accompanied by: Self / Same As Patient Allergies Sulfa (Sulfonamide Antibiotics) [SULFA(SULFONAMIDE ANTIBIOTICS)] Allergy (Severe, Verified 08/27/23 16:17) Anaphylaxis aspirin Adverse Reaction (Intermediate, Verified 08/27/23 16:17) Gastrointestinal Upset Medication List - Last Reconciled 08/27/23 by Liban Watkins PA-C zolpidem 10 mg PO BEDTIME PRN Tobacco use date assessed: 08/27/23 Dental Screening Dental Screen Date: 08/27/23 Did you have a dental visit in the last 12 months?: No Did you have a dental problem in the last 6 months where you did not have access to dental care?: No Was dental information given to patient?: Patient declined HPI pe HPI Details Patient is a 57-year-old female here today for follow-up visit.? Patient has a past medical history significant for? hypertension, tobacco dependence AQUILINO? 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 * HAS STOPPED TAKING ALL OF HER MEDICATIONS SINCE THE PASSING OF HER PARTNER IN JULY 2022. Still suffers with some depressive symptoms though feels that most of it is related to her grief from passing of her partner. She has been using supplemental mushroom teas and colostrum .. Atypical ductal hyperplasia:? Recently found on mammogram and follow-up with general surgeon and whom has done a wide excision biopsy without evidence of malignancy.? Has followed up with Oncology whom recommends MRI breasts Has had Bone density which showed osteopenia. Recommendations of in made to start tamoxifen the patient has concerns about side effects of blood clots as she is still smoking .. ADHD: Still suffers from ADHD symptoms though does not present a huge disadvantage to her in her life. She reports she continues to work 2 jobs without any issues. Most of her ADHD symptoms present at home in her personal life. She was on Strattera 80 mg in the past though is not interested in any further ADHD medication at this time. .. Former smoker: Quite in July 2022 , I congratulated her on this and she plans to continue to abstain from cigarette smoking .. Hypertension:? Blood pressure acceptable today in office.? Patient was on hydrochlorothiazide and propanolol in the past for both hypertension and heart palpitations. She reports she has not had any further help palpitations over the last several months. Again have stopped smoking. Mammogram:? Needs new mammo. Does have a history of atypical mammograms and was followed by oncologist and a general surgeon whom has done wide excision biopsy. .. 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 .. Colonoscopy: Cologaurd done 2019 which was normal repeat 3 years- is due for colon cancer screening now and is interested in colonoscopy. Will refer to [facility] . VaccineL UTD with COVID VAccine, ,Has gotten PCV , needs up-to-date Tdap PFS Medical History Colon cancer screening Depression HTN (hypertension) History of urinary incontinence History of ADHD Surgical History S/P lumpectomy, right breast (06/15/21) History of elbow surgery Family History Father GERD (gastroesophageal reflux disease) Stroke Mother Diabetes GERD (gastroesophageal reflux disease) Depression Hypertension Fibromyalgia Mental health disorder Maternal Grandmother Dementia Uterine cancer Mental health disorder Son Autism Mental health disorder Sister Breast cancer Maternal Aunt Breast cancer Social History Household Members: Family Housing: Apartment Are you a primary dog daycare provider to a significant other at home: No Do you presently have visiting nurse or other home services: No Alcohol intake: current Alcohol intake frequency: a few times a week Alcohol type: hard liquor Patient Tobacco Use Status: Former Tobacco user (will be a year in the month of September Pt Quit.) Tobacco use type: Cigarette e-Cigarette/Vaping Use: Never Used Advance Directives Date on File: 06/15/21 service: No Current occupational status: employed 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 Sexual orientation: Straight/Heterosexual Gender identity: Female Cognitive needs: No Hearing needs: No Vision needs: No Female Reproductive History Menstrual Age of Menarche: 12 Questionnaire PHQ-9 Over the last 2 weeks, how often have you been bothered by any of the following problems? 1. Little interest or pleasure in doing things: nearly every day 2. Feeling down, depressed, or hopeless: more than half the days 3. Trouble falling or staying asleep, or sleeping too much: more than half the days 4. Feeling tired or having little energy: nearly every day 5. Poor appetite or overeating: nearly every day 6. Feeling bad about yourself - or that you are a failure or have let yourself or your family down: nearly every day 7. Trouble concentrating on things, such as reading the newspaper or watching television: nearly every day 8. Moving or speaking so slowly that other people could have noticed. Or the opposite - being so fidgety or restless that you have been moving around a lot more than usual: nearly every day 9. Thoughts that you would be better off or of hurting yourself in some way: not at all Total score: 22 Depression Screening Interpretation: Positive Depression Screening Follow-up: Existing condition Depression Screening Done: Yes 60936 - PHQ-9 Billing: Yes Source: Developed by Drs. Brody Hathaway, Adriane Kim, Carlitos Cordoba and colleagues, with an educational hudson from [employer]. Thrive Questionnaire Date Thrive assessed: 08/27/23 I am a: Patient What is your living situation today?: I have a steady place to live Within the past 12 months, did the food you bought not last and you didn't have the money to get more?: Never true Within the past 12 months, did you worry whether your food would run out before you got money to buy more?: Never true Do you have trouble paying for medicines?: No Do you have trouble getting transportation to medical appointments?: No Do you have trouble paying your heating and electricity bill?: No Do you have trouble taking care of your child, family member or friend?: No Do you have trouble with day-to-day activities such as bathing, preparing meals, shopping, managing finances, etc.?: No Are you currently unemployed and looking for a job?: No Are you interested in more education?: No Please select the resources that you would like help with: None Currently or been in a relationship where the following occur: no concerns reported THRIVE Score: 0 AUDIT C Alcohol Use Questionnaire (AUDIT-C) 1. How often do you have a drink containing alcohol?: Never 3. How often do you have six or more drinks on one occasion?: Never Total Score: 0 AQUILINO-7 AMB Questionnaire AQUILINO-7 Date AQUILINO - 7 assessed: 08/27/23 Feeling nervous, anxious, or on edge: 3 = Nearly every day Not being able to stop or control worryin = More than half the days Worrying too much about different things: 3 = Nearly every day Trouble relaxin = Nearly every day Being so restless that it is hard to sit still: 3 = Nearly every day Becoming easily annoyed or irritable: 2 = More than half the days Feeling afraid as if something awful might happen: 3 = Nearly every day Total AQUILINO-7 score (0-4 normal; 5-9 mild; 10-14 moderate; 15-21 severe): 19 Source: Developed by Drs. Brody Hathaway, Adriane Kim, Carlitos Cordoba and colleagues, with an educational hudson from [employer]. AQUILINO-7 Assessment Billing AQUILINO-7 Assessment Tool: AQUILINO-7 Assessment 01260 Review of Systems Const Denies body aches, Denies chills, Denies excessive sweating, Denies fatigue, Denies fever(s) and Denies headache(s) Eyes Denies blurry vision ENT Denies dysphagia, Denies vertigo, Denies dizziness, Denies headache(s), Denies hearing loss and Denies tinnitus Card Denies chest pain, Denies chest pain with activity, Denies syncope, Denies irregular heart rhythm and Denies dyspnea Resp Denies chest congestion, Denies cough, Denies hemoptysis, Denies dyspnea and Denies wheezing GI Denies abdominal pain, Denies melena, Denies hematochezia, Denies coffee ground emesis, Denies dysphagia, Denies diarrhea, Denies nausea and Denies vomiting Denies urinary frequency, Denies dysuria, Denies urinary hesitancy and Denies urinary urgency Musc Denies arthralgias, Denies limited range of motion, Denies muscle cramps and Denies muscle weakness Skin/Breast Denies rash and Denies skin ulcer Neuro Denies Abnormal speech present, Denies confusion, Denies vertigo, Denies dizziness, Denies syncope, Denies headache(s), Denies memory loss and Denies seizure-like activity Psych Denies anxiety, Denies confusion, Denies depression, Denies memory loss, Denies panic attacks and Denies paranoia Endo Denies excessive sweating, Denies fatigue, Denies flushing, Denies polydipsia and Denies polyuria Aller/Immun Denies wheezing Physical exam (Primary Care) Vital Signs: Last Vital Signs Pulse 98 08/27/23 15:54 BP 128/78 08/27/23 15:54 Pulse Ox 98 08/27/23 15:54 Oxygen Delivery Method Room Air 08/27/23 15:54 BMI result Body Mass Index 30.6 Tobacco/Smoking Status: Tobacco use Status Tobacco use date assessed 08/27/23 08/27/23 16:14 Patient Tobacco Use Status Former Tobacco user (will be 08/27/23 16:14 a year in the month of September Pt Quit.) Tobacco use type Cigarette 08/27/23 15:54 e-Cigarette/Vaping Use Never Used 08/27/23 15:54 PHQ-9: PHQ-9 Score PHQ-9: Total score 22 08/27/23 17:07 Depression Screening Interpretation: Positive Depression Screening Follow-up: Existing condition Thrive Assessment: Date of Thrive Assessment Date Thrive assessed 08/27/23 08/27/23 16:14 Currently or been in a relationship where the following occur: no concerns reported Const General: cooperative, comfortable, no acute distress, alert and awake; No confusion Orientation/consciousness: oriented to person, oriented to place, patient oriented x3 and No confusion HENMT Head: Yes normocephalic Ears: external ears normal and TM's normal bilaterally Face and sinus: No sinus tenderness Mouth: Normal oral and palatal mucosa present and tongue normal Teeth and gingiva: dentition normal and gingiva normal Throat: Yes posterior oropharynx normal, Yes tonsils normal and Yes uvula midline Eyes Conjunctivae: conjunctivae normal Sclerae: sclerae normal Pupils: Equal, round and reactive pupils present EOM: EOMs intact bilaterally Direct Ophthalmoscopy: No no photophobia Neck Neck: Yes no lymphadenopathy, No tender and Yes no JVD Thyroid: Thyroid normal Carotids: no bruits Chest Chest palpation & inspection: no tenderness Resp Effort & Inspection: normal respiratory effort, no audible wheezes, not labored and no stridor Auscultation: no crackles, no rales, no rhonchi and no wheezes Cardio Jugular venous distension: no JVD Rate: regular rate, not bradycardic and not tachycardic Rhythm: regular rhythm Bruits: no carotid bruits Peripheral pulses: Peripheral pulses 2+ throughout GI Inspection: Yes normal to inspection, No abdominal wall ecchymosis and No visible herniation Palpation (GI): Soft to palpation, nontender, no guarding, not rigid and No hepatosplenomegaly present Auscultation: normoactive bowel sounds General: Yes no CVA tenderness Back/Spine/Pelvis Back: no CVA tenderness and No back tenderness Cervical Spine: cervical ROM normal Thoracic/Lumbar Spine: thoracic and lumbar spine normal to inspection, straight leg raise negative bilaterally, No thoraco-lumbar ROM limited and No lumbar spinal tenderness Skin Lesions: no lesions Rashes: no rashes Wounds: no wounds Neuro General: oriented to person, oriented to place, patient oriented x3, CN's II-XI intact bilaterally and No confusion Cranial nerves: Yes Equal, round and reactive pupils present and Yes Normal accommodation reflex present Cognition (Neuro): normal cognition Speech: No Abnormal speech present Gait exam (Neuro): Normal gait present Motor exam (neuro): 5/5 motor strength present throughout Extrem Right upper extremity: full ROM; no cyanosis Left upper extremity: full ROM; no cyanosis Right lower extremity: no edema Left lower extremity: no edema Psych Appearance: grossly normal Mental Status: mental status grossly normal Affect: normal affect Attitude: cooperative Thought process: Normal thought process present Immunizations Boostrix Tdap 2.5 Lf unit-8 mcg-5 Lf/0.5 mL intramuscular syringe Performing Provider: Liban Watkins PA-C Performing Location: [facility] Administered by: CHRISTIE Hernandez on 08/27/23 17:07 Dose Route Admin Location Dispensed Lot Number Expiration Date NDC Pharmacy Informatics Specialist 0.5 mL IM Left Deltoid 0.5 mL [id number] 09/08/25 [id number] [employer] VIS Given Date VIS Provided VIS Publication Date 08/27/23 Single Vaccine 20 Eligibility Eligibility Date Funding Source Not [facility] Eligible 08/27/23 Private Assessment and Plan Assessment & Plan (1) Annual physical exam: Code(s): Z00.00 - Encounter for general adult medical examination without abnormal findings (2) HTN (hypertension): Code(s): I10 - Essential (primary) hypertension Qualifiers: Hypertension type: primary hypertension Qualified Code(s): I10 - Essential (primary) hypertension Plan: Blood pressure today in office acceptable. Has been managed over the last year with lifestyle modifications. Advised to continue monitoring blood pressure with goal blood pressure to be below 140/90 (3) AQUILINO (generalized anxiety disorder): Code(s): F41.1 - Generalized anxiety disorder Plan: Patient's AQUILINO-7 score positive for anxiety which has been existing condition for her. Patient reports her anxiety has been fairly well controlled without medication at this time. Still does take zolpidem on a as needed basis for sleep. She is not speaking with a mental health therapist at this time. (4) ADHD: Code(s): F90.9 - Attention-deficit hyperactivity disorder, unspecified type Qualifiers: Attention deficit-hyperactivity disorder type: predominantly inattentive Qualified Code(s): F90.0 - Attention-deficit hyperactivity disorder, predominantly inattentive type Plan: As per HPI she reports her ADHD symptoms are fairly well controlled and is not interested in any further medication for ADHD. She functions well at work. (5) Hyperlipidemia: Code(s): E78.5 - Hyperlipidemia, unspecified Qualifiers: Hyperlipidemia type: mixed hyperlipidemia Qualified Code(s): E78.2 - Mixed hyperlipidemia Plan: Patient's most recent lipid panel showing improved total cholesterol and LDL. Patient has quit smoking over the last year. We did discuss possibly starting cholesterol medication the patient would like to work on lifestyle/dietary modifications. Goal LDL is to remain below 160 (6) MDD (major depressive disorder), recurrent episode, moderate: Code(s): F33.1 - Major depressive disorder, recurrent, moderate Plan: Patient's PHQ-9 score positive for depression which has been existing condition for her for many years. She mostly reports her depression is done from grief from the loss of a partner last year.. She has stopped all of her mental health medications as she feels she does not need them anymore.. Otherwise denies any SI or HI (7) Breast cancer screening: Code(s): Z12.39 - Encounter for other screening for malignant neoplasm of breast Qualifiers: Breast cancer screening modality: mammogram Qualified Code(s): Z12.31 - Encounter for screening mammogram for malignant neoplasm of breast (8) Colon cancer screening: Comment: [facility] 2019 Code(s): Z12.11 - Encounter for screening for malignant neoplasm of colon Plan: Willing to do colonoscopy (9) Former smoker: Code(s): Z87.891 - Personal history of nicotine dependence Plan: Patient quit smoking in August 2022 (10) Cervical cancer screening: Code(s): Z12.4 - Encounter for screening for malignant neoplasm of cervix Plan: Patient would like to reestablish care with [facility] for further cervical cancer screenings. Orders: Orders Vitamin B12 and Folate 08/27/23 E53.8 - Deficiency of other specified B group vitamins, R53.82 - Chronic fatigue, unspecified TDaP Immunization 08/27/23 R53.82 - Chronic fatigue, unspecified, Z23 - Encounter for immunization Vitamin D 25-OH Total 6 Months E55.9 - Vitamin D deficiency, unspecified MM screening mammo BI 08/27/23 Z12.31 - Encounter for screening mammogram for malignant neoplasm of breast, Z12.39 - Encounter for other screening for malignant neoplasm of breast Lipid Panel 6 Months E78.2 - Mixed hyperlipidemia Complete Blood Count no Diff 6 Months E78.2 - Mixed hyperlipidemia Referrals Pain Management Referral M51.16 - Intervertebral disc disorders with radiculopathy, lumbar region General Surgery Referral N60.91 - Unspecified benign mammary dysplasia of right breast 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 Referral Z12.4 - Encounter for screening for malignant neoplasm of cervix Hematology & Oncology Referral N60.91 - Unspecified benign mammary dysplasia of right breast Gastroenterology Referral Z12.11 - Encounter for screening for malignant neoplasm of colon Medications: Changed From zolpidem 10 mg PO BEDTIME 30 days 30 tabs 3RF G47.00 - Insomnia, unspecified To zolpidem 10 mg PO BEDTIME PRN G47.00 - Insomnia, unspecified Patient Instructions: Goals: Maintain blood pressure below 140/90, maintain LDL below 160 Barriers: Medication compliance, remembering to monitor blood pressure Coding Level of Care Code Est Pt Prev Care 40-64y(92806) Diagnoses Annual physical exam Z00.00 Primary hypertension I10 Hypertension type: primary hypertension AQUILINO (generalized anxiety disorder) F41.1 Attention deficit hyperactivity disorder (ADHD), predominantly inattentive type F90.0 Attention deficit-hyperactivity disorder type: predominantly inattentive Mixed hyperlipidemia E78.2 Hyperlipidemia type: mixed hyperlipidemia MDD (major depressive disorder), recurrent episode, moderate F33.1 Encounter for screening mammogram for malignant neoplasm of breast Z12.31 Breast cancer screening modality: mammogram Colon cancer screening Z12.11 Former smoker Z87.891 Cervical cancer screening Z12.4 Additional Codes AQUILINO-7 Assessment Billing - AQUILINO-7 Assessment Tool: AQUILINO-7 Assessment 02480 ([id number])
== END 2023-08-27 17:06 | disposition home or self-care (01) ==
PROVIDERS: PCP Physician Assistant; Visit Provider Physician Assistant
DX: Z23 Encounter for immunization (principal); R53.82 Chronic fatigue, unspecified
CPT/HCPCS: 90471; 90715; 99396

== ENCOUNTER 2023-09-03 12:24 | Emergency (ER) | payer OTHER, SELFPAY ==
--- NOTE | ~2023-09-03 | XR_ITS ---
EXAMINATION: XR KNEE, RIGHT CLINICAL INFORMATION: Right knee pain. COMPARISON: None available. TECHNIQUE: AP and lateral views of the right knee. FINDINGS: No acute fracture or dislocation. No significant joint space narrowing. Tiny patellofemoral marginal osteophytes. No osseous erosion. No abnormal soft tissue calcification. Small joint effusion. XR/XR knee RT 2V IMPRESSION: Minimal patellofemoral arthrosis. Small joint effusion.
[2023-09-03 12:31] VITALS: BP 131/78; PULSE 75; O2SAT 100
[2023-09-03 12:39] VITALS: BP 125/74; PULSE 61; RESP 18; TEMP 35.8; O2SAT 99; BMI 29.2
--- NOTE | 2023-09-03 14:10 | ED_ITS ---
HPI - General Adult General Chief complaint: Extremity Injury, Lower Stated complaint: FALL UP STAIRS,R KNEE PAIN PER EMS Time Seen by Provider: 09/03/23 15:06 Source: patient, EMS and RN notes reviewed Mode of arrival: EMS Limitations: no limitations History of Present Illness HPI narrative: Patient is a 58-year-old female presenting to the emergency department with complaint of right medial and posterior knee pain. States she has been having pain to her knee for the past 2 weeks which she describes as a soreness worse with standing. This morning she took Tylenol and ibuprofen for her discomfort. She states that later in the day when she was at work walking up a set of stairs she felt a pop sensation and her right knee hyperextended. She sat down on the stairs but has been unable to bear weight since. Denies any numbness or tingling. complaint: knee pain Onset (ago): hour(s) Location: right and lower extremity Radiation: non-radiation Severity: severe Quality: aching Pain Consistency: constant Relieving factors: rest Exacerbating factors: movement Associated symptoms: denies other symptoms Related Data Home Medications ?Medication ?Instructions ?Recorded ?Confirmed zolpidem 10 mg tablet 10 mg PO BEDTIME PRN 08/27/23 08/27/23 Previous Rx's ?Medication ?Instructions ?Recorded oxycodone 5 mg tablet 5 mg PO .qhs PRN severe pain 09/03/23 (scale score 7-10) #3 tabs Allergies Allergy/AdvReac Type Severity Reaction Status Date / Time Sulfa (Sulfonamide Allergy Severe Anaphylaxis Verified 09/03/23 12:39 Antibiotics) [SULFA(SULFONAMIDE ANTIBIOTICS)] aspirin AdvReac Intermediate Gastrointestinal Verified 09/03/23 12:39 Upset Review of Systems Review of Systems: As per HPI. Yes all other systems are reviewed and are negative Constitutional: Constitutional: Reports as per HPI [facility] Past Medical History Medical History Colon cancer screening Depression HTN (hypertension) History of urinary incontinence History of ADHD Surgical History S/P lumpectomy, right breast (06/15/21) History of elbow surgery Family History Family History Father GERD (gastroesophageal reflux disease) Stroke Mother Diabetes GERD (gastroesophageal reflux disease) Depression Hypertension Fibromyalgia Mental health disorder Maternal Grandmother Dementia Uterine cancer Mental health disorder Son Autism Mental health disorder Sister Breast cancer Maternal Aunt Breast cancer Social History Social History Household Members: Family Housing: Apartment Are you a primary patient care associate to a significant other at home: No Do you presently have visiting nurse or other home services: No Alcohol intake: current Alcohol intake frequency: a few times a week Alcohol type: hard liquor Patient Tobacco Use Status: Former Tobacco user (will be a year in the month of September Pt Quit.) Tobacco use type: Cigarette e-Cigarette/Vaping Use: Never Used Advance Directives: Yes Advance Directives on File: Yes Advance Directives Date on File: 06/15/21 Do you have a plan to hurt others: No Plan service: No Current occupational status: employed 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 Sexual orientation: Straight/Heterosexual Gender identity: Female Cognitive needs: No Hearing needs: No Vision needs: No Physical Exam ED Vital Signs: Vital Signs - 24 hr 09/03/23 12:39 09/03/23 17:39 Temperature 96.4 F L 97.7 F Pulse Rate 61 68 Respiratory Rate 18 18 Blood Pressure 125/74 126/73 Pulse Oximetry 99 100 Oxygen Delivery Method Room Air Room Air BMI result Body Mass Index 29.2 Vital signs have been reviewed and appear to be correct. Blood pressure normal. Heart rate normal. Respiratory rate normal. Temperature normal. Oxygen saturation normal. Const General: cooperative, healthy appearing and no acute distress Orientation/consciousness: oriented to person, oriented to place, oriented to time and patient oriented x3 Limitations: no limitations HENMT Head: Yes normocephalic and Yes atraumatic Ears: external ears normal General nose exam: Normal external nose present Face and sinus: Yes face symmetric Mouth: oropharynx normal and moist mucous membranes Throat: Yes uvula midline Eyes Pupils: Equal, round and reactive pupils present Neck Neck: Yes normal visual inspection and Yes supple Resp Effort & Inspection: normal respiratory effort and able to speak in complete sentences Auscultation: clear to auscultation bilaterally Cardio Rate: regular rate Rhythm: regular rhythm Heart sounds: S1 normal heart sound present and S2 normal heart sound present GI Palpation (GI): Soft to palpation and nontender Auscultation: normoactive bowel sounds General: Yes no CVA tenderness Back/Spine/Pelvis Back: no CVA tenderness Skin General skin exam: elasticity normal and turgor normal Neuro General: oriented to person, oriented to place, oriented to time, patient oriented x3, moves all extremities, no focal motor deficits and CN's II-XI intact bilaterally Cranial nerves: Yes Equal, round and reactive pupils present Cognition (Neuro): normal cognition Extrem General: Yes full ROM, Yes normal exam except as noted, Yes no pedal edema and Yes no calf tenderness Right lower extremity: knee Details: normal to inspection, tenderness Location: of the popliteal fossa, normal ROM and knee ligament exam abnormal Details: valgus stress test normal Details: both pain and laxity noted; no swelling Psych Mental Status: mental status grossly normal Affect: normal affect Thought process: Normal thought process present Course Course Course Narrative: This is an RME: Additional HPI, ROS, PE not included below will be deferred to primary provider. 58 year old female presents sp fall earlier today was carryign a bod rt knee hurt --> fell forward. No headstrike or LOC. Not on thinenrs since then r knee pain Plan- imaging Medical Decision Making Medical Decision Making MDM Narrative: Patient is a 58-year-old female presenting to the emergency department with complaint of right medial and posterior knee pain. On exam patient is awake, A+Ox3, VS WNL, afebrile, normal neurological exam without focal deficits, physical exam findings as above. Given reported symptoms and physical exam findings, initial differential includes right knee strain, sprain, ligamentous injury. Unlikely fracture. X-ray notable for minimal patellofemoral arthrosis, small effusion. My interpretation is in agreement with the radiologist's interpretation. Given laxity on exam, suspect possible MCL injury. Patient placed in knee immobilizer and given crutches with crutch teaching. Advised patient to remain nonweightbearing on right leg until evaluated by orthopedics. Patient instructed to call their office to schedule an appointment. Return precautions discussed at bedside. Advised patient to alternate Tylenol and ibuprofen as well as keep leg elevated and apply ice intermittently. Patient verbalized understanding of and agreement with plan. Upon discharge, patient requesting pain medication for night time with RN. Will prescribe a few oxycodone until patient is seen by orthopedics. Differential Diagnosis Differential Diagnoses: The differential diagnosis associated with the presentation includes As per MDM. Independent Interpretation I performed an independent interpretation of an: Plain X-Ray Interpretation: X-ray notable for minimal patellofemoral arthrosis, small effusion. Radiology Impression Discussion of test interpretation with radiology: I have reviewed the radiologist's reading. Radiologist Impression: XR/XR knee RT 2V IMPRESSION: Minimal patellofemoral arthrosis. Small joint effusion. External Record Review External record reviewed: Inpatient record, Office record and Outpatient record Discharge Plan Discharge Clinical Impression: Strain of right knee Patient Disposition: Home, Self-Care Instructions: Crutch Instructions (ED), Knee Pain (ED), R.I.C.E. Treatment (ED), Knee Immobilizer (ED), Arthritis (ED) Additional Instructions: You have been evaluated in the emergency department today for knee pain. You will need further evaluation and management of your symptoms by orthopedics. We have provided a knee immobilizer and crutches for you to use while your knee heals. Please rest, ice, and elevate your knee, and remain non weightbearing until told otherwise by orthopedics. We recommend you take 600mg ibuprofen every 6 hours or 650mg Tylenol every 6 hours as needed for pain. If needed you can alternate these medications as they take 1 medication every 3 hours. For instance at noon take ibuprofen, then at 3:00 p.m. take Tylenol, then at 6:00 p.m. take ibuprofen. Please schedule an appointment for follow-up with your primary care provider this week. Return to the emergency department if you experience worsening pain, numbness, tingling, change of color in your leg, or any other concerning symptoms. Prescriptions: New oxycodone 5 mg tablet 5 mg PO .qhs PRN (Reason: severe pain (scale score 7-10)) Qty: 3 0RF Rx Instructions: Partial Fill upon patient request. No Action zolpidem 10 mg tablet 10 mg PO BEDTIME PRN Referrals: [facility] [Provider Group] Stand Alone Forms: Work/School Release Print Language: Cypriot
--- NOTE | 2023-09-03 16:58 | PC.NURSE ---
knee immobilizer was applied with assistance of TREE WORKER, pt was educated on its application as well as use of crutches. pt requesting a narcotic for pain at night- the provider was notified pt also found to be pulling of the immobilizer despite correct placement of it.
[2023-09-03 17:39] VITALS: BP 126/73; PULSE 68; RESP 18; TEMP 36.5; O2SAT 100
[2023-09-03 18:16] VITALS: BP 126/73; PULSE 68; RESP 18; TEMP 36.5; O2SAT 100
== END 2023-09-03 18:16 | disposition home or self-care (01) ==
PROVIDERS: Emergency Provider Student in an Organized Health Care Education/Training Program; PCP Physician Assistant
DX: S83.91XA Sprain of unspecified site of right knee, initial encounter (principal); M25.561 Pain in right knee; X58.XXXA Exposure to other specified factors, initial encounter; Y93.9 Activity, unspecified; Y92.9 Unspecified place or not applicable; Y99.8 Other external cause status
CPT/HCPCS: 73560; 99282; 99283

== ENCOUNTER → 2023-09-06 10:56 | Outpatient (BNVA) | payer OTHER, SELFPAY | PROVIDERS: PCP Physician Assistant; Visit Provider Physician Assistant Medical | DX: S83.411A Sprain of medial collateral ligament of right knee, initial encounter (principal); W10.9XXA Fall (on) (from) unspecified stairs and steps, initial encounter | CPT/HCPCS: 99203 ==

== ENCOUNTER 2023-09-12 10:59 | Outpatient (REF) | payer OTHER, SELFPAY ==
--- NOTE | ~2023-09-12 | MM_ITS ---
EXAMINATION: MM SCREENING DIGITAL BREAST TOMOSYNTHESIS, BILATERAL CLINICAL INFORMATION: Screening. Asymptomatic. COMPARISON: Mammography: This study is compared with prior exams dating back to 2019. TECHNIQUE: Digital breast tomosynthesis is performed in both the craniocaudal and mediolateral oblique views along with computer-aided detection (CAD). Synthesized 2D images are generated from the tomosynthesis. FINDINGS: There are scattered areas of fibroglandular density (ACR BI-RADS breast composition Category b). There are no significant masses, abnormal calcifications, or other abnormalities. There is a tissue marker at the inferior aspect of each breast from prior benign percutaneous biopsies. The patient has also had an excisional biopsy in the superior aspect of the right breast. MM/MM tomosynthesis screening BI IMPRESSION: No mammographic evidence of malignancy. ASSESSMENT: BI-RADS BI-RADS 2 - Benign Findings RECOMMENDATION: Routine annual mammography screening. 1 year F/U This examination should not preclude the clinical evaluation of a suspicious palpable abnormality. This patient's information was entered into a reminder system with a target due date for their next mammogram.
== END 2023-09-12 11:00 | disposition home or self-care (01) ==
LOC: HO.MAMMO 10:59
PROVIDERS: PCP Physician Assistant; Visit Provider Physician Assistant
DX: Z12.31 Encounter for screening mammogram for malignant neoplasm of breast (principal)
CPT/HCPCS: 77063; 77067

== ENCOUNTER → 2023-09-12 11:00 | Outpatient (BNV) | payer OTHER, SELFPAY | PROVIDERS: PCP Physician Assistant; Visit Provider Radiology Diagnostic Radiology | DX: Z12.31 Encounter for screening mammogram for malignant neoplasm of breast (principal) | CPT/HCPCS: 77063; 77067 ==

== ENCOUNTER 2023-09-19 08:38 | Outpatient (AMB) | payer OTHER, SELFPAY ==
--- NOTE | 2023-09-19 08:49 | A.OFFVIS_ITS ---
Vital Signs 09/19/23 09:07 Height 5 ft 3 in Weight 168 lb BMI 29.8 BP 117/73 Blood Pressure Location Lt brachial Position Sitting Respiration 14 Pulse 81 Pulse Source Pulse Oximeter Pulse Oximetry (%) 98 Oxygen Delivery Method Room Air Intake Visit Reasons: Intervertebral Disc Disorders w/ Radiculopathy Allergies Sulfa (Sulfonamide Antibiotics) [SULFA(SULFONAMIDE ANTIBIOTICS)] Allergy (Severe, Verified 09/19/23 09:08) Anaphylaxis aspirin Adverse Reaction (Intermediate, Verified 09/19/23 09:08) Gastrointestinal Upset Medication List - Last Reconciled 09/19/23 by Nydia Maldonado LPN zolpidem 10 mg PO BEDTIME PRN HPI HPI Intervertebral Disc Disorders w/ Radiculopathy: Details: 58-year-old female presents to the office today for intervertebral disc disorder with radiculopathy The patient states she received diagnostic injections last time. She reports that the pain was tolerable, but relief from the injection did not last long. She reports that her insurance got canceled, so she was never able to visit us again. She did an MRI at the [facility], but we did not have the results. She relates that she had a good benefit from the injection and was able to go to work the next day. She usually gets her pain injections at [facility], but she does not like it there. She started to have pain after an accident at her workplace. She has reached her menopause state and is currently on hormone therapy for her breast cancer.? She received a couple of injections for the lower back pain in the past. She presents the back pain on her left side mostly, and the nature of the pain is ?shooting? down to her legs. She also reports pain in her neck.? She did not do any kind of physical therapy as the pain got severe. She has trouble bending over and just lives with the pain every day. She has tried physical therapy, injections, ice, heat, acupuncture, and braces, but nothing seems to be helpful enough. She admits to gaining a few pounds because of her inactivity. She lost her partner too, which made her depressed and gain weight. [facility] Medical History Colon cancer screening Depression HTN (hypertension) History of urinary incontinence History of ADHD Surgical History S/P lumpectomy, right breast (06/15/21) History of elbow surgery Family History Father GERD (gastroesophageal reflux disease) Stroke Mother Diabetes GERD (gastroesophageal reflux disease) Depression Hypertension Fibromyalgia Mental health disorder Maternal Grandmother Dementia Uterine cancer Mental health disorder Son Autism Mental health disorder Sister Breast cancer Maternal Aunt Breast cancer Social History Household Members: Family Housing: Apartment Are you a primary administrator health care facility to a significant other at home: No Do you presently have visiting nurse or other home services: No Alcohol intake: current Alcohol intake frequency: a few times a week Alcohol type: hard liquor Patient Tobacco Use Status: Former Tobacco user (will be a year in the month of September Pt Quit.) Tobacco use type: Cigarette e-Cigarette/Vaping Use: Never Used Advance Directives Date on File: 06/15/21 service: No Current occupational status: employed 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 Sexual orientation: Straight/Heterosexual Gender identity: Female Cognitive needs: No Hearing needs: No Vision needs: No Female Reproductive History Menstrual Age of Menarche: 12 Review of Systems Const All systems reviewed & are unremarkable except as noted in HPI and below Physical Exam Vital Signs: Last Vital Signs Pulse 81 09/19/23 09:07 Resp 14 09/19/23 09:07 BP 117/73 09/19/23 09:07 Pulse Ox 98 09/19/23 09:07 Oxygen Delivery Method Room Air 09/19/23 09:07 BMI result Body Mass Index 29.8 General: Appears afebrile. Alert and oriented. Mood and affect appropriate. Follows and participates in conversation appropriately. Respiratory effort is unlabored. Able to transition from sit to stand unassisted. For lumbar extension is extremely limited. Unable to accomplish facet loading due to limited lumbar range of motion. Results Reviewed Results Reviewed: Reviewed MR images on the patient provided disc. Findings notable for vertebral endplate Modic changes at L5 and S1, with a small note of active endplate change at L4 inferior endplate as well. Significant multilevel facet hypertrophy associated with multifidus atrophy as well. Disc osteophyte complexes lead to multilevel foraminal narrowing, most pronounced at L5-S1. Assessment & Plan Assessment & Plan (1) Lumbar spondylosis: Code(s): M47.816 - Spondylosis without myelopathy or radiculopathy, lumbar region Category: Medical (2) Vertebrogenic low back pain: Code(s): M54.51 - Vertebrogenic low back pain Category: Medical (3) Lumbar radicular pain: Code(s): M54.16 - Radiculopathy, lumbar region Category: Medical (4) Intractable back pain: Code(s): M54.9 - Dorsalgia, unspecified Category: Medical Plan I had a long discussion with patient regarding her multiple pain generators, which include tubal endplate degenerative lumbar spondylosis intervertebral disc degeneration and multifidus muscle atrophy. I think she would benefit from facet interventions as well as ablation of the basivertebral nerve for the vertebrogenic component of her pain. She may also benefit from dynamic flexion- extension films of the lumbar spine to rule out instability if pain interventions are not helpful. She also has bilateral moderate L5, S1 foraminal stenosis with some radiation of pain down the leg. I discussed trial of peripheral nerve stimulation at the left L3 medial branch as a first step to treat her facet mediated pain in setting of positive diagnostic injections with local anesthetic only. If that is not helpful, we can consider BVN ablation at L5, S1 and possible L4. Scribed for Dr. Gutierres by Vani Bruno, medical consultant, on 09/19/2023. I, Dr. Gutierres, have personally reviewed and agree with the information entered by the scribe. Coding Level of Care Code Est Pt Level 4 (54564) Diagnoses Lumbar spondylosis M47.816 Vertebrogenic low back pain M54.51 Lumbar radicular pain M54.16 Intractable back pain M54.9
[2023-09-19 09:07] VITALS: BP 117/73; PULSE 81; RESP 14; O2SAT 98; BMI 29.8
== END 2023-09-19 09:40 | disposition home or self-care (01) ==
PROVIDERS: PCP Physician Assistant; Visit Provider Internal Medicine
DX: M47.816 Spondylosis without myelopathy or radiculopathy, lumbar region (principal); M54.51 Vertebrogenic low back pain; M54.16 Radiculopathy, lumbar region; M54.9 Dorsalgia, unspecified
CPT/HCPCS: 99214

== ENCOUNTER → 2023-09-19 08:38 | Outpatient (BNVA) | payer OTHER, SELFPAY | PROVIDERS: PCP Physician Assistant; Visit Provider Internal Medicine | DX: M47.26 Other spondylosis with radiculopathy, lumbar region (principal); M54.51 Vertebrogenic low back pain | CPT/HCPCS: 99212 ==

== ENCOUNTER → 2023-09-20 13:46 | Outpatient (BNVA) | payer OTHER, SELFPAY | PROVIDERS: PCP Physician Assistant; Visit Provider Physician Assistant Medical | DX: S83.411D Sprain of medial collateral ligament of right knee, subsequent encounter (principal); W10.9XXD Fall (on) (from) unspecified stairs and steps, subsequent encounter | CPT/HCPCS: 29515; 99213 ==

== ENCOUNTER 2023-09-25 15:38 | Outpatient (AMB) | payer OTHER, SELFPAY ==
[2023-09-25 16:03] VITALS: BP 143/91; PULSE 96; BMI 30.7
--- NOTE | 2023-09-25 16:03 | MHC.OFFVIS ---
Vital Signs 09/25/23 16:03 Height 5 ft 3.5 in Weight 176 lb BMI 30.7 BP 143/91 H Blood Pressure Location Lt brachial Position Sitting Pulse 96 Intake Visit Reasons: atypical ductal hyperplasia of rt breast Intake Note: Patient is seen in office for follow up visit, breast exam. 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 She subsequently underwent right breast lumpectomy with needle localization on 06/15/2021. Pathology confirmed atypical ductal hyperplasia. She was subsequently evaluated by Dr. Nation and tamoxifen recommended for approximately 2 years as she is perimenopausal. The patient declined due to her smoking history and concerns about blood clots. She was placed on a high risk protocol and MRI ordered on 10/19/2021. This revealed a left breast heterogeneously enhancing 6 mm mass at the 06:00 o'clock location. In the right breast a 10 mm linear ductal non mass enhancement was identified in the 5 o'clock position. Also noted were postop changes in the right breast at the 12 o'clock position. Findings were felt to be high suspicion for malignancy (BI-RADS 4 bilaterally). She underwent a MR guided biopsy of the right breast on 11/01/2021. This revealed fibrocystic changes with no atypia. Ultrasound-guided left breast biopsy on 10/27/2021 revealed pseudoangiomatous stromal hyperplasia. Mammogram dated 09/12/2023 revealed no mammographic evidence of malignancy (BI-RADS 2). Plan is for an MRI approximately 6 months later (March 2024). She reports feeling fine but just tired nearly all the time. She quit smoking. She does have a younger sister with breast cancer who was diagnosed with breast cancer as well as a maternal aunt with breast cancer. She is 2 para 2 and reports breast-feeding both her children.? She denies any palpable breast masses, skin changes, nipple discharge, or enlarged lymph nodes.? ? [facility] Medical History Colon cancer screening Depression HTN (hypertension) History of urinary incontinence History of ADHD Surgical History S/P lumpectomy, right breast (06/15/21) History of elbow surgery Family History Father GERD (gastroesophageal reflux disease) Stroke Mother Diabetes GERD (gastroesophageal reflux disease) Depression Hypertension Fibromyalgia Mental health disorder Maternal Grandmother Dementia Uterine cancer Mental health disorder Son Autism Mental health disorder Sister Breast cancer Maternal Aunt Breast cancer Social History Household Members: Family Housing: Apartment Are you a primary care director rn to a significant other at home: No Do you presently have visiting nurse or other home services: No Alcohol intake: current Alcohol intake frequency: a few times a week Alcohol type: hard liquor Patient Tobacco Use Status: Former Tobacco user (will be a year in the month of September Pt Quit.) Tobacco use type: Cigarette e-Cigarette/Vaping Use: Never Used Advance Directives Date on File: 06/15/21 service: No Current occupational status: employed 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 Sexual orientation: Straight/Heterosexual Gender identity: Female Cognitive needs: No Hearing needs: No Vision needs: No Female Reproductive History Menstrual Age of Menarche: 12 Review of Systems Const Denies chills, Denies fever(s), Denies headache(s) and Denies poor appetite ENT Denies dizziness and Denies headache(s) Card Denies chest pain, Denies rapid heart rate, Denies palpitations and Denies slow heart rate Resp Denies chest congestion, Denies cough, Denies pain on inspiration and Denies wheezing GI Denies abdominal pain, Denies bloating, Denies change in stool character, Denies constipation, Denies diarrhea, Denies nausea, Denies vomiting and Denies hematemesis Denies nipple discharge Musc Denies back pain, Denies arthralgias, Denies joint swelling and Denies numbness Skin/Breast Denies breast swelling, Denies breast skin changes, Denies breast pain, Denies breast mass, Denies change in breast shape, Denies change in pigmentation, Denies nipple discharge, Denies erythema and Denies rash Neuro Denies dizziness, Denies headache(s) and Denies numbness Psych Denies anxiety and Denies depression Endo Denies palpitations Michael/Lymph Denies easy bleeding, Denies easy bruising and Denies lymphadenopathy Aller/Immun Denies wheezing Physical Exam Vital Signs: Last Vital Signs Pulse 96 09/25/23 16:03 BP 143/91 H 09/25/23 16:03 BMI result Body Mass Index 30.7 Const General: cooperative, comfortable and well developed Nutritional Appearance: well nourished Orientation/consciousness: patient oriented x3 Neck Neck: Yes normal visual inspection Chest Other: Left breast: No skin change, no nipple retraction, no nipple discharge, no palpable mass, no enlarged lymph nodes. Right breast: No skin change, no nipple retraction, no nipple discharge, no palpable mass, no enlarged lymph nodes, well-healed circumareolar incision in the upper outer quadrant. Resp Effort & Inspection: normal respiratory effort, no cough, no respiratory distress and no stridor Cardio Jugular venous distension: no JVD GI Inspection: Yes normal to inspection Skin General skin exam: dry skin Rashes: no rashes Neuro Other: Mobility Assessment: 1. 3 meter assessment time (seconds):4 2. Gait observations: Normal balance and gait General: patient oriented x3 and no focal motor deficits Extrem General: Yes full ROM and Yes no clubbing, cyanosis or edema Psych Appearance: grossly normal Assessment & Plan Assessment & Plan (1) Atypical ductal hyperplasia of right breast: Code(s): N60.91 - Unspecified benign mammary dysplasia of right breast Category: Medical Plan: 58-year-old female patient diagnosed with atypical ductal hyperplasia , s/p right breast lumpectomy with needle localization on 06/15/2021. She was evaluated by Medical Oncology ([facility]) and tamoxifen recommended as she is perimenopausal. The patient was concerned about the risk of blood clots, therefore declined the tamoxifen. She is high risk for breast cancer given her previous history of atypical ductal hyperplasia and family history and should continue on the high risk protocol of twice yearly clinical breast examinations, monthly self examinations, yearly mammogram alternating every 6 months with yearly breast MRI. She will be scheduled for a follow-up breast MRI in March 2024. I recommended follow-up examination in 6 months. She expressed understanding and agrees with the plan. Coding Level of Care Code Est Pt Level 3 (81786) Diagnoses Atypical ductal hyperplasia of right breast N60.91
== END 2023-09-25 16:28 | disposition home or self-care (01) ==
PROVIDERS: PCP Physician Assistant; Visit Provider Surgery
DX: N60.91 Unspecified benign mammary dysplasia of right breast (principal)
CPT/HCPCS: 99213

== ENCOUNTER → 2023-09-25 15:38 | Outpatient (BNVA) | payer OTHER, SELFPAY | PROVIDERS: PCP Physician Assistant; Visit Provider Surgery | DX: N60.91 Unspecified benign mammary dysplasia of right breast (principal) | CPT/HCPCS: 99212 ==

== ENCOUNTER 2023-10-01 20:55 | Outpatient (REF) | payer OTHER, SELFPAY | END 2023-10-01 20:56 | disposition home or self-care (01) | LOC: HO.HOSX 20:55 | PROVIDERS: Visit Provider Physician Assistant | DX: Z13.89 Encounter for screening for other disorder (principal) ==

== ENCOUNTER 2023-10-02 | Outpatient (REF) | payer OTHER, SELFPAY | END 2023-10-02 00:01 | LOC: CF | PROVIDERS: PCP Physician Assistant; Visit Provider Physician Assistant | DX: S83.231D Complex tear of medial meniscus, current injury, right knee, subsequent encounter (principal) | CPT/HCPCS: 99212 ==

== ENCOUNTER 2023-10-02 08:30 | Outpatient (AMB) | payer OTHER, SELFPAY ==
--- NOTE | 2023-10-02 08:46 | A.OFFVIS_ITS ---
Vital Signs 3 10/02/23 09:03 Height 5 ft 3.5 in Weight 176 lb BMI 30.7 Intake Visit Reasons: Newprob-Rt knee strain-DOI 09/03/23 WC Intake Note: Linda a 58 year old female who presents today for a evaluation of right knee, DOI 09/03/23. MRI done at [facility]. Patient reports soreness in her knee about a week prior to her injury, states while at work she was proceeding up the stairs when she felt a pop and her knee went the opposite way. She presented to [facility] by ambulance, where xrays were taken and referred to orthopedics. Currently she has a constant throbbing pain at the anterior and posterior aspect of knee that radiates down her leg. Difficulty with stair use. Finds relief with Tylenol. Allergies Sulfa (Sulfonamide Antibiotics) [SULFA(SULFONAMIDE ANTIBIOTICS)] Allergy (Severe, Verified 10/02/23 09:03) Anaphylaxis aspirin Adverse Reaction (Intermediate, Verified 10/02/23 09:03) Gastrointestinal Upset HPI HPI Newprob-Rt knee strain-DOI 09/03/23 WC: Details: 58-year-old female who presents to the office today for evaluation of right knee injury which occurred work on 09/03/23. She stastes she was proceeding up the stairs when she felt a pop and her knee went the opposite way. She was seen at ER by ambulance where x-rays were performed and she was referred to our office. She currently states she has constant throbbing pain at the anterior and posterior aspect of her knee that radiates down her leg. If she twist or pivots, she feels a pain along the medial aspect of the knee and catching. Her pain is aggravated with stair use and at night. She also experiences instability and feels her knee will give out. She finds relief with Tylenol. [facility] Medical History Colon cancer screening Depression HTN (hypertension) History of urinary incontinence History of ADHD Surgical History S/P lumpectomy, right breast (06/15/21) History of elbow surgery Family History Father GERD (gastroesophageal reflux disease) Stroke Mother Diabetes GERD (gastroesophageal reflux disease) Depression Hypertension Fibromyalgia Mental health disorder Maternal Grandmother Dementia Uterine cancer Mental health disorder Son Autism Mental health disorder Sister Breast cancer Maternal Aunt Breast cancer Social History Household Members: Family Housing: Apartment Are you a primary cattle care worker to a significant other at home: No Do you presently have visiting nurse or other home services: No Alcohol intake: current Alcohol intake frequency: a few times a week Alcohol type: hard liquor Patient Tobacco Use Status: Former Tobacco user (will be a year in the month of September Pt Quit.) Tobacco use type: Cigarette e-Cigarette/Vaping Use: Never Used Advance Directives Date on File: 06/15/21 service: No Current occupational status: employed 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 Sexual orientation: Straight/Heterosexual Gender identity: Female Cognitive needs: No Hearing needs: No Vision needs: No Female Reproductive History Menstrual Age of Menarche: 12 Review of Systems Const All systems reviewed & are unremarkable except as noted in HPI and below Physical Exam Vital Signs: BMI result Body Mass Index 30.7 Const General: cooperative, healthy appearing, comfortable, no acute distress, well developed and alert Orientation/consciousness: patient oriented x3 HEENT Head: Yes normal to inspection, Yes normocephalic and Yes atraumatic Eyes General: appearance normal, both eyes and all related structures Neck Neck: Yes normal visual inspection and Yes no lymphadenopathy Resp Effort & Inspection: normal respiratory effort and able to speak in complete sentences Cardio Rate: regular rate Peripheral pulses: Peripheral pulses 2+ throughout GI Inspection: Yes normal to inspection Palpation (GI): Soft to palpation Skin General skin exam: no rashes or lesions noted Neuro General: patient oriented x3 Extrem Other: Right knee: Skin intact, no erythema or joint effusion. Tenderness along the medial joint line extending posteriorly. Full ROM with crepitus. Positive Abdirahman?s. No ligamentous laxity. NVI. Psych Appearance: grossly normal Mental Status: mental status grossly normal Results Reviewed Results Reviewed: Assessment & Plan Assessment & Plan (1) Medial meniscus tear: Code(s): S83.249A - Other tear of medial meniscus, current injury, unspecified knee, initial encounter Category: Medical Qualifiers: Tear current or old: current Encounter type: initial encounter M eniscus tear of knee type: complex Laterality: right Qualified Code(s): S 83.231A - Complex tear of medial meniscus, current injury, right knee, initial encounter Plan I discussed the MRI findings to the patient which are consistent with her PE findings. We discussed options available which include surgical intervention. I explained the procedure in detail along with the length of recovery and rehab course. I explained the risk, benefits and alternatives. Risk including, but not limited to infection, blood clots, bleeding, ongoing pain and stiffness. I answered all their questions and with their understanding they have consented to move forward with right knee arthroscopic medial meniscal root reapir with Dr. Singer. The patient will be booked accordingly. Orders: Orders 2 XR knee LT 2V 10/02/23 M25.562 - Pain in left knee XR knee RT 1V 10/02/23 M25.561 - Pain in right knee Patient Instructions: Scribed for Marcella Lee PA-C, by Ky Li medical data entry clerk, on 10/02/2023 at 9:00 AM EST.? I, Marcella Lee PA-C, have personally reviewed and agree with the information entered by the scribe. Coding Level of Care Code Est Pt Level 4 (60724) Diagnoses Complex tear of medial meniscus of right knee as current injury, initial encounter S83.231A Tear current or old: current Encounter type: initial encounter Meniscus tear of knee type: complex Laterality: right
[2023-10-02 09:03] VITALS: BMI 30.7
== END 2023-10-02 09:42 | disposition home or self-care (01) ==
PROVIDERS: PCP Physician Assistant; Visit Provider Physician Assistant
DX: S83.231A Complex tear of medial meniscus, current injury, right knee, initial encounter (principal); Z04.2 Encounter for examination and observation following work accident
CPT/HCPCS: 99214

== ENCOUNTER 2023-10-02 12:37 | Outpatient (REF) | payer OTHER, SELFPAY ==
--- NOTE | ~2023-10-02 | XR_ITS ---
EXAMINATION: XR KNEE, SUNRISE RIGHT XR AP STANDING VIEW KNEES, BILATERAL CLINICAL INFORMATION: Pain in left knee. COMPARISON: 09/03/2023 TECHNIQUE: AP standing view of bilateral knees. Single sunrise view of the right knee. FINDINGS: Moderate narrowing of the medial compartment. Small tricompartmental osteophytes. Left Knee: Small medial marginal osteophytes. Minimal narrowing of the medial compartment. Sclerotic focus overlying the proximal left tibia may represent a bone lesion such as a bone island versus soft tissue calcification XR/XR knee LT 2V IMPRESSION: 1. Moderate degenerative changes right knee. 2. Mild degenerative changes left knee. 3. Sclerotic focus overlying the proximal left tibia may represent a bone lesion such as a bone island versus soft tissue calcification. Dedicated views of the left knee are recommended for further evaluation.
--- NOTE | ~2023-10-02 | XR_ITS ---
EXAMINATION: XR KNEE, SUNRISE RIGHT XR AP STANDING VIEW KNEES, BILATERAL CLINICAL INFORMATION: Pain in left knee. COMPARISON: 09/03/2023 TECHNIQUE: AP standing view of bilateral knees. Single sunrise view of the right knee. FINDINGS: Moderate narrowing of the medial compartment. Small tricompartmental osteophytes. Left Knee: Small medial marginal osteophytes. Minimal narrowing of the medial compartment. Sclerotic focus overlying the proximal left tibia may represent a bone lesion such as a bone island versus soft tissue calcification XR/XR knee RT 1V IMPRESSION: 1. Moderate degenerative changes right knee. 2. Mild degenerative changes left knee. 3. Sclerotic focus overlying the proximal left tibia may represent a bone lesion such as a bone island versus soft tissue calcification. Dedicated views of the left knee are recommended for further evaluation.
== END 2023-10-02 12:38 | disposition home or self-care (01) ==
LOC: HO.HOSX 12:37
PROVIDERS: Visit Provider Physician Assistant
DX: M25.561 Pain in right knee (principal); M25.562 Pain in left knee
CPT/HCPCS: 73560

== ENCOUNTER → 2023-10-31 11:38 | Outpatient (BNV) | payer OTHER, SELFPAY ==
[2023-10-31 11:38] VITALS: BMI 30.7
--- NOTE | 2023-10-31 11:38 | A.OFFVIS_ITS ---
Vital Signs 10/31/23 11:38 Height 5 ft 3.5 in Weight 176 lb BMI 30.7 Intake Visit Reasons: Amb Documentation Intake Note: Linda presents today VIA telephone to discuss upcoming surgerydue to WC injury of right knee, DOI 09/03/23 Allergies Sulfa (Sulfonamide Antibiotics) [SULFA(SULFONAMIDE ANTIBIOTICS)] Allergy (Severe, Verified 10/02/23 09:03) Anaphylaxis aspirin Adverse Reaction (Intermediate, Verified 10/02/23 09:03) Gastrointestinal Upset HPI HPI Amb Documentation: Details: scheduled for surgery next week. Linda has some questions. SHe states she feels her knee is painful and she continues to feel unstable. [facility] Medical History Colon cancer screening Depression HTN (hypertension) History of urinary incontinence History of ADHD Surgical History S/P lumpectomy, right breast (06/15/21) History of elbow surgery Family History Father GERD (gastroesophageal reflux disease) Stroke Mother Diabetes GERD (gastroesophageal reflux disease) Depression Hypertension Fibromyalgia Mental health disorder Maternal Grandmother Dementia Uterine cancer Mental health disorder Son Autism Mental health disorder Sister Breast cancer Maternal Aunt Breast cancer Social History Household Members: Family Housing: Apartment Are you a primary healthcare administration internship to a significant other at home: No Do you presently have visiting nurse or other home services: No Alcohol intake: current Alcohol intake frequency: a few times a week Alcohol type: hard liquor Patient Tobacco Use Status: Former Tobacco user Tobacco use type: Cigarette e-Cigarette/Vaping Use: Never Used Advance Directives Date on File: 06/15/21 service: No Current occupational status: employed 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 Sexual orientation: Straight/Heterosexual Gender identity: Female Cognitive needs: No Hearing needs: No Vision needs: No Female Reproductive History Menstrual Age of Menarche: 12 Physical Exam Vital Signs: BMI result Body Mass Index 30.7 Telehealth Telehealth Telehealth Platform: Telephone Location of provider rendering services: practice address Location of patient: address on file Patient Identification confirmed using: Name, : Yes Telehealth method: voice only Patient verbally consented to treatment: No Patient verbally consented to billing insurance company: No Patient informed of any privacy concerns related to visit: No Minutes spent on Phone/Video with Pt.: 10 Assessment & Plan Assessment & Plan (1) Medial meniscus tear: Code(s): S83.249A - Other tear of medial meniscus, current injury, unspecified knee, initial encounter Category: Medical Qualifiers: Tear current or old: current Encounter type: initial encounter Meniscus tear of knee type: complex Laterality: right Qualified Code(s): S83.231A - Complex tear of medial meniscus, current injury, right knee, initial encounter Plan: We discussed her upcoming surgery. I explained the possibility of meniscal root repair vs partial medial meniscectomy. I discussed the risks benefits and alternatives including but not limited to the risk of pain, infection, stiffness, need for further surgery as well as potential medical complications. She expressed understanding and her questions were answered. Coding Level of Care Code Global (62144) Diagnoses Complex tear of medial meniscus of right knee as current injury, initial encounter S83.231A Tear current or old: current Encounter type: initial encounter Meniscus tear of knee type: complex Laterality: right
== END ==
PROVIDERS: PCP Physician Assistant
DX: S83.231A Complex tear of medial meniscus, current injury, right knee, initial encounter (principal)
CPT/HCPCS: 99441

== ENCOUNTER 2023-12-13 09:37 | Outpatient (AMB) | payer OTHER, SELFPAY ==
--- NOTE | 2023-12-13 09:41 | A.OFFVIS_ITS ---
Vital Signs 12/13/23 09:49 Height 5 ft 3 in Weight 176 lb BMI 31.2 Intake Visit Reasons: Preop RT MMR repair 12/19/23 NE Intake Note: Linda is a 58 year old female who presents today with the nurse nurse case management for a pre op appointment for her RT MMR repair 12/19/23 NE. Allergies Sulfa (Sulfonamide Antibiotics) [SULFA(SULFONAMIDE ANTIBIOTICS)] Allergy (Severe, Verified 10/02/23 09:03) Anaphylaxis aspirin Adverse Reaction (Intermediate, Verified 10/02/23 09:03) Gastrointestinal Upset HPI HPI Preop RT MMR repair 12/19/23 NE: Details: 58-year-old female who presents in the office today for her preoperative history and physical exam prior to a right knee medial meniscus repair to be performed on 12/19/[address] Darrell Singer.? ? Patient presents in the office today with a nurse case management. ? ? Patient has an allergy history, as follows:? -Sulfa; anaphylaxis? -Aspirin; GI upset? ? Patient is currently taking, as follows:? -Cholecalciferol 50 mcg PO daily? -Zolpidem 10 mg PO bedtime PRN? ? Patient has a medical history, as follows:? -Major depressive disorder? -Atypical ductal hyperplasia of the right breast? -Vitamin D deficiency? -Generalized anxiety disorder? -Varicose veins of right lower extremity with inflammation? -ADHD? -Hyperlipidemia? -Hypertension? -Palpations? -Peripheral vascular disease? -Insomnia? -Hx of urinary incontinence? ? Patient has a surgical history, as follows:? -Hx of?lumpectomy, right breast 06/15/21? -Hx?of elbow surgery; tennis surgery 09/2009? ? ? Patient has a social history, as follows:? -Alcohol use: Few times weekly? -Tobacco: Former smoker? 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 [employer] Medical History Colon cancer screening Depression HTN (hypertension) History of urinary incontinence History of ADHD Surgical History S/P lumpectomy, right breast (06/15/21) History of elbow surgery Family History Father GERD (gastroesophageal reflux disease) Stroke Mother Diabetes GERD (gastroesophageal reflux disease) Depression Hypertension Fibromyalgia Mental health disorder Maternal Grandmother Dementia Uterine cancer Mental health disorder Son Autism Mental health disorder Sister Breast cancer Maternal Aunt Breast cancer Social History Household Members: Family Housing: Apartment Are you a primary resident care provider to a significant other at home: No Do you presently have visiting nurse or other home services: No Alcohol intake: current Alcohol intake frequency: a few times a week Alcohol type: hard liquor Patient Tobacco Use Status: Former Tobacco user Tobacco use type: Cigarette e-Cigarette/Vaping Use: Never Used Advance Directives Date on File: 06/15/21 service: No Current occupational status: employed 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 Sexual orientation: Straight/Heterosexual Gender identity: Female Cognitive needs: No Hearing needs: No Vision needs: No Female Reproductive History Menstrual Age of Menarche: 12 Review of Systems Const All systems reviewed & are unremarkable except as noted in HPI and below Physical Exam Vital Signs: BMI result Body Mass Index 31.2 Const General: cooperative, healthy appearing, comfortable, no acute distress, well developed, alert and awake Orientation/consciousness: patient oriented x3 HEENT Head: Yes normal to inspection, Yes normocephalic and Yes atraumatic Eyes General: appearance normal, both eyes and all related structures Neck Neck: Yes normal visual inspection and Yes no lymphadenopathy Resp Effort & Inspection: normal respiratory effort and able to speak in complete sentences Cardio Rate: regular rate Peripheral pulses: Peripheral pulses 2+ throughout GI Inspection: Yes normal to inspection Palpation (GI): Soft to palpation Skin General skin exam: no rashes or lesions noted Neuro General: patient oriented x3 Extrem Other: Right knee: Skin intact, no erythema or joint effusion. Tenderness along the medial joint line extending posteriorly. Full ROM with crepitus. Positive Abdirahman?s. No ligamentous laxity. NVI. Psych Appearance: grossly normal Mental Status: mental status grossly normal Assessment & Plan Assessment & Plan (1) Medial meniscus tear: Code(s): S83.249A - Other tear of medial meniscus, current injury, unspecified knee, initial encounter Category: Medical Qualifiers: Encounter type: initial encounter Laterality: right Meniscus tear of knee type: complex Tear current or old: current Qualified Code(s): S83.231A - Complex tear of medial meniscus, current injury, right knee, initial encounter Plan Ms. Epstein is a 58-year-old female who presents in the office today for her preoperative history and physical exam prior to a right knee medial meniscus repair to be performed on 12/19/[address] Darrell Singer.? ? Patient presents in the office today with a nurse case management. ? ? Patient has an allergy history, as follows:? -Sulfa; anaphylaxis? -Aspirin; GI upset? ? Patient is currently taking, as follows:? -Cholecalciferol 50 mcg PO daily? -Zolpidem 10 mg PO bedtime PRN? ? Patient has a medical history, as follows:? -Major depressive disorder? -Atypical ductal hyperplasia of the right breast? -Vitamin D deficiency? -Generalized anxiety disorder? -Varicose veins of right lower extremity with inflammation? -ADHD? -Hyperlipidemia? -Hypertension? -Palpations? -Peripheral vascular disease? -Insomnia? -Hx of urinary incontinence? ? Patient has a surgical history, as follows:? -Hx of?lumpectomy, right breast 06/15/21? -Hx?of elbow surgery; tennis surgery 09/2009? ? ? Patient has a social history, as follows:? -Alcohol use: Few times weekly? -Tobacco: Former smoker? 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 ? I discussed in detail the procedure and what to expect pre and post operatively. We discussed the risks, benefits, alternatives to the surgery and the rehabilitation course. The risks include infection, bleeding, nerve injury, ongoing pain, swelling, and stiffness, perioperative risk of injury to bones and soft tissues, and blood clots.?? ? I have answered all questions and with their understanding they have consented to move forward with a right knee medial meniscus repair to be performed on 12/19/[address] Darrell Singer.? ? Patient presents in the office today with a nurse case management. They are requesting a cryotherapy device with compression. This order was placed today so the patient can receive this before surgery. She had one when she was scheduled for the surgery prior but due to her eating her surgery was postponed and she returned the device. ? ? Follow-up will be at the post operative appointment on 12/31/23, or sooner if needed.? Medications: New [cryotherapy machine with compression] As directed 1 ea 0RF Patient Instructions: Scribed by Michelle Soto, medical numerical control operator, for Bee Alcazar PA-C on 12/13/2023 at 9:42 am, EST.? Coding Level of Care Code Global (80552) Diagnoses Complex tear of medial meniscus of right knee as current injury, initial encounter S83.231A Encounter type: initial encounter Laterality: right Meniscus tear of knee type: complex Tear current or old: current
[2023-12-13 09:49] VITALS: BMI 31.2
== END 2023-12-13 10:30 | disposition home or self-care (01) ==
PROVIDERS: PCP Physician Assistant; Visit Provider Physician Assistant
DX: S83.231A Complex tear of medial meniscus, current injury, right knee, initial encounter (principal)
CPT/HCPCS: 99024

== ENCOUNTER → 2023-12-13 09:37 | Outpatient (BNVA) | payer OTHER, SELFPAY | PROVIDERS: PCP Physician Assistant; Visit Provider Physician Assistant | DX: S83.231A Complex tear of medial meniscus, current injury, right knee, initial encounter (principal) | CPT/HCPCS: 99212 ==

== ENCOUNTER 2023-12-19 06:36 | Day surgery (SDC) | payer OTHER, SELFPAY ==
[2023-12-14 15:27] VITALS: BMI 30.2
--- NOTE | 2023-12-18 08:59 | HO.ANESPROP2 ---
Documented by User: June Whyte NP 12/18/23 09:00 HPI - Anesthesia Eval Consult details Narrative: 58yo F for Right Medial Meniscus Root Repair PMFSH Active Problems Active Problems: All Active Problems Medial meniscus tear (Acute) Intractable back pain (Acute) Lumbar radicular pain (Acute) Vertebrogenic low back pain (Acute) Cervical cancer screening (Acute) Former smoker (Acute) Breast cancer screening (Acute) Eyelid eczema (Acute) Tobacco dependence (Acute) Encounter to discuss test results (Acute) Lumbar spondylosis (Acute) Abnormal MRI, breast (Acute) Fatigue (Acute) MDD (major depressive disorder), recurrent episode, moderate (Acute) Bronchitis (Acute) Abnormal uterine bleeding (AUB) (Acute) Atypical ductal hyperplasia of right breast (Chronic) Family history of breast cancer (Acute) Abnormal mammogram of right breast (Acute) Encounter for annual routine gynecological examination (Acute) Vitamin D deficiency (Acute) AQUILINO (generalized anxiety disorder) (Acute) Annual physical exam (Acute) Sinusitis (Acute) Lumbar disc disease with radiculopathy (Acute) Varicose veins of right lower extremity with inflammation (Acute) ADHD (Acute) Hyperlipidemia (Acute) Palpitations (Acute) Atypical chest pain (Acute) Screening for hypercholesterolemia (Acute) Screening for diabetes mellitus (DM) (Acute) Intermittent left-sided chest pain (Acute) PVD (peripheral vascular disease) (Acute) MDD (major depressive disorder) (Acute) Smoker (Acute) Annual physical exam (Acute) Hot flashes (Acute) Insomnia (Acute) Colon cancer screening (Acute) S/P lumpectomy, right breast (Acute 06/15/21) Depression (Acute) History of ADHD (Acute) HTN (hypertension) (Acute) Past Medical History Medical History Depression HTN (hypertension) Colon cancer screening History of urinary incontinence History of ADHD Family History Family History Father GERD (gastroesophageal reflux disease) Stroke Mother Diabetes GERD (gastroesophageal reflux disease) Depression Hypertension Fibromyalgia Mental health disorder Maternal Grandmother Dementia Uterine cancer Mental health disorder Son Autism Mental health disorder Sister Breast cancer Maternal Aunt Breast cancer Family history of problems with anesthesia: Yes Surgical History Surgical History H/O right breast biopsy H/O left breast biopsy S/P lumpectomy, right breast (06/15/21) History of elbow surgery History of Problems with Anesthesia: No Social History Social History Household Members: Family Housing: Apartment Are you a primary career and transition teacher to a significant other at home: No Do you presently have visiting nurse or other home services: No Alcohol intake: current Alcohol intake frequency: holidays/special occasions only Alcohol type: hard liquor Patient Tobacco Use Status: Former Tobacco user Tobacco use type: Cigarette Years Smoked: 25 Smoked in Last 30 Days: No e-Cigarette/Vaping Use: Never Used Use of substances other than those prescribed or required for medical reasons: Yes Substance Use Type Other:: TCH Edibles Substance Use Frequency: Socially Are you DNR?: No Advance Directives: No Advance Directives Information Provided: Yes Advance Directives on File: No Advance Directives Date on File: 06/15/21 Recently lost weight without trying: No Nutrition Risks: No Nutritional Risk service: No Current occupational status: employed 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 Sexual orientation: Straight/Heterosexual Gender identity: Female Cognitive needs: No Hearing needs: No Vision needs: No Meds Allergies Allergy/AdvReac Type Severity Reaction Status Date / Time Sulfa (Sulfonamide Allergy Severe Anaphylaxis Verified 12/19/23 06:57 Antibiotics) [SULFA(SULFONAMIDE ANTIBIOTICS)] aspirin AdvReac Intermediate Gastrointestinal Verified 12/19/23 06:57 Upset Exam Height,Weight and Vital Signs: Height 5 ft 3.5 in Weight 78.471 kg Pertinent Lab Results Pertinent Lab Results: Laboratory Tests 08/27/23 12:03 WBC 5.6 Hgb 14.0 Hct 43.3 Plt Count 287 Sodium 141 Potassium 4.1 Chloride 108 Carbon Dioxide 25 BUN 16 Creatinine 0.68 Assessment and Plan Assessment Anesthesia Assessment: Chart Reviewed Final Anesthetic Review Family History of Problems with Anesthesia: Yes History of Problems with Anesthesia: No Documented by User: Mindy Fung MD 12/19/23 07:28 [facility] Past Medical History Medical History Depression HTN (hypertension) Colon cancer screening History of urinary incontinence History of ADHD Family History Family History Father GERD (gastroesophageal reflux disease) Stroke Mother Diabetes GERD (gastroesophageal reflux disease) Depression Hypertension Fibromyalgia Mental health disorder Maternal Grandmother Dementia Uterine cancer Mental health disorder Son Autism Mental health disorder Sister Breast cancer Maternal Aunt Breast cancer Family history of problems with anesthesia: Yes Surgical History Surgical History H/O right breast biopsy H/O left breast biopsy S/P lumpectomy, right breast (06/15/21) History of elbow surgery History of Problems with Anesthesia: No Social History Social History Household Members: Family Housing: Apartment Are you a primary career and transition teacher to a significant other at home: No Do you presently have visiting nurse or other home services: No Alcohol intake: current Alcohol intake frequency: holidays/special occasions only Alcohol type: hard liquor Patient Tobacco Use Status: Former Tobacco user Tobacco use type: Cigarette Years Smoked: 25 Smoked in Last 30 Days: No e-Cigarette/Vaping Use: Never Used Use of substances other than those prescribed or required for medical reasons: Yes Substance Use Type Other:: [facility] Edibles Substance Use Frequency: Socially Are you DNR?: No Advance Directives: No Advance Directives Information Provided: Yes Advance Directives on File: No Advance Directives Date on File: 06/15/21 Recently lost weight without trying: No Nutrition Risks: No Nutritional Risk service: No Current occupational status: employed 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 Sexual orientation: Straight/Heterosexual Gender identity: Female Cognitive needs: No Hearing needs: No Vision needs: No Meds Allergies Allergy/AdvReac Type Severity Reaction Status Date / Time Sulfa (Sulfonamide Allergy Severe Anaphylaxis Verified 12/19/23 06:57 Antibiotics) [SULFA(SULFONAMIDE ANTIBIOTICS)] aspirin AdvReac Intermediate Gastrointestinal Verified 12/19/23 06:57 Upset Assessment and Plan Final Anesthetic Review Family History of Problems with Anesthesia: Yes History of Problems with Anesthesia: No Documented by User: Radha Steve MD 12/19/23 09:52 PMFSH Past Medical History Medical History Depression HTN (hypertension) Colon cancer screening History of urinary incontinence History of ADHD Family History Family History Father GERD (gastroesophageal reflux disease) Stroke Mother Diabetes GERD (gastroesophageal reflux disease) Depression Hypertension Fibromyalgia Mental health disorder Maternal Grandmother Dementia Uterine cancer Mental health disorder Son Autism Mental health disorder Sister Breast cancer Maternal Aunt Breast cancer Surgical History Surgical History H/O right breast biopsy H/O left breast biopsy S/P lumpectomy, right breast (06/15/21) History of elbow surgery Social History Social History Household Members: Family Housing: Apartment Are you a primary career and transition teacher to a significant other at home: No Do you presently have visiting nurse or other home services: No Alcohol intake: current Alcohol intake frequency: holidays/special occasions only Alcohol type: hard liquor Patient Tobacco Use Status: Former Tobacco user Tobacco use type: Cigarette Years Smoked: 25 Smoked in Last 30 Days: No e-Cigarette/Vaping Use: Never Used Use of substances other than those prescribed or required for medical reasons: Yes Substance Use Type Other:: TCH Edibles Substance Use Frequency: Socially Are you DNR?: No Advance Directives: No Advance Directives Information Provided: Yes Advance Directives on File: No Advance Directives Date on File: 06/15/21 Recently lost weight without trying: No Nutrition Risks: No Nutritional Risk service: No Current occupational status: employed 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 Sexual orientation: Straight/Heterosexual Gender identity: Female Cognitive needs: No Hearing needs: No Vision needs: No Meds Allergies Allergy/AdvReac Type Severity Reaction Status Date / Time Sulfa (Sulfonamide Allergy Severe Anaphylaxis Verified 12/19/23 06:57 Antibiotics) [SULFA(SULFONAMIDE ANTIBIOTICS)] aspirin AdvReac Intermediate Gastrointestinal Verified 12/19/23 06:57 Upset Assessment and Plan Final Anesthetic Review NPO: Yes ASA Class: III Final Preanesthetic Review: No Changes in Pt Med Stat, Meds/Allgs Chart Reviewed, Consent Obtained/Reviewed and Anes Risks/Benef Reviewed Patient Risk: Low Procedure Risk: Low Anesthetic Plan Anesthetic Plan: Regional Block Disposition: Standard PACU
[2023-12-19] VITALS (9 sets, daily range): BP systolic 104–142; BP diastolic 68–101; PULSE 62–81; RESP 15–18; TEMP 36.3–36.6; O2SAT 96–100; BMI 32.3
[2023-12-19] MEDS: Lactated Ringers 1,000 ML 100 ML IVCONT (08:00)
--- NOTE | 2023-12-19 08:26 | MHC.SHP ---
Pre-Procedural Eval Section A - 24 Hr Update-Section A only Date of Service: 12/19/23 The patient is an INPATIENT: No Changes since office visit: No Cold of Flu in the past 2 weeks, No New Medical Problems, No Changes in Medication and No Patient answered all questions The patient has been examined within 24 hours of the surgical procedure. The History & Physical has been completed within 30 days and I have reviewed it.: Yes Section B - Complete if H&P > 30 days Chief Complaint: Complex tear of medial meniscus, current injury, Allergies: Allergies Allergy/AdvReac Type Severity Reaction Status Date / Time Sulfa (Sulfonamide Allergy Severe Anaphylaxis Verified 12/19/23 06:57 Antibiotics) [SULFA(SULFONAMIDE ANTIBIOTICS)] aspirin AdvReac Intermediate Gastrointestinal Verified 12/19/23 06:57 Upset Plan I have reviewed the history and physical and performed a pertinent physical examination on my patient. No changes have occurred unless specified. Time Spent With Patient Time: Total time managing care of this patient today ____ minutes.
[2023-12-19] MEDS: HYDROmorphone HCl 0.5 MG/0.5 ML SYRINGE 0.25 MG IVPUSH ×2 (09:58→10:03)
--- NOTE | 2023-12-19 10:06 | PM.OP ---
Brief Operative Note Date of Service: 12/19/23 Pre-op diagnosis: Right knee medial meniscus tear Post-op diagnosis: other (Right knee osteoarthritis and medial meniscus tear) Procedure: Partial medial meniscectomy and chondroplasty right knee Implants: none Surgeon: Darrell Singer MD Anesthesia: GLMA and regional Was an Director Of Hotel used for this Procedure?: No Estimated blood loss (mL): 10 Tourniquet time (min): 25 IV fluids (mL): 500 Pathology: none sent Condition: stable Disposition: PACU
[2023-12-19] MEDS: oxyCODONE HCl Immed Release 5 MG TABLET PO (10:18)
--- NOTE | 2023-12-27 08:53 | P.OP_ITS ---
Operative Note Operative Note Date of Service: 12/19/23 Narrative: Date of Service: 12/19/23 Pre-op diagnosis: Right knee medial meniscus tear Post-op diagnosis: other (Right knee osteoarthritis and medial meniscus tear) Procedure: Partial medial meniscectomy and chondroplasty right knee Implants: none Surgeon: Darrell Singer MD Anesthesia: GLMA and regional Was an Cherry Picker Operator used for this Procedure?: No Estimated blood loss (mL): 10 Tourniquet time (min): 25 IV fluids (mL): 500 Pathology: none sent Condition: stable Disposition: PACU Procedure in detail: Patient was brought to the operating room placed supine on the arthroscopic table and prepped and draped in standard sterile fashion. A time-out was called to identify proper site proper procedure proper surgeon and IV antibiotics per weight were administered. I began by exsanguinating the limb and insufflating tourniquet to 300 mm Hg. Then made a standard anterolateral stab incision. The knee was insufflated with water and 30 degree arthroscope was placed. There was grade3 and scattered G4 chondromalacia of the patella and medial aspect of the trochlear groove. The suprapatellar pouch and the gutters were clean. I descended into the medial compartment where I made my medial portal under direct visualization. There were extensive G3/4 chages of the MFC. There was a smal tear of the posterior horn of the medial meniscus. The root was partially toen but stable to probing. The combination of stability, arthritis and patient age were a contreaindication to root repair. I used a combination of biter shaver and cautery to remove unstable portions of the meniscus. Apporximately 20% meniscal volume was removed. I perfromed a chondroplasty of the MFC and the PFJ. Once I was satisfied with this, the ACL was examined and found to be intact and the lateral compartment also was without the need for intervention. I then removed all instrumentation and closed the portals with skin glue. 25 mL of 2% Marcaine with epinephrine was injected into the joint and the surrounding soft tissues. Patient was then placed in sterile dressing extubated brought recovery room stable condition. There were no known complications.
== END 2023-12-19 11:56 | disposition home or self-care (01) ==
PROVIDERS: PCP Physician Assistant; Visit Provider Orthopaedic Surgery
PROC: (CPT 29870; principal; 2023-12-19 08:30)
DX: S83.231A Complex tear of medial meniscus, current injury, right knee, initial encounter (principal); X58.XXXA Exposure to other specified factors, initial encounter; Y93.9 Activity, unspecified; Y92.9 Unspecified place or not applicable; Y99.8 Other external cause status; M17.11 Unilateral primary osteoarthritis, right knee; I10 Essential (primary) hypertension; E78.5 Hyperlipidemia, unspecified; E55.9 Vitamin D deficiency, unspecified; I73.9 Peripheral vascular disease, unspecified; N60.91 Unspecified benign mammary dysplasia of right breast; I83.11 Varicose veins of right lower extremity with inflammation; F32.A Depression, unspecified; F41.1 Generalized anxiety disorder; F90.9 Attention-deficit hyperactivity disorder, unspecified type; Z79.899 Other long term (current) drug therapy; Z88.2 Allergy status to sulfonamides; Z88.6 Allergy status to analgesic agent; Z98.890 Other specified postprocedural states; Z87.891 Personal history of nicotine dependence
CPT/HCPCS: 29881; J0131; J0171; J0665; J0690; J1100; J1170; J2250; J2405; J2704; J3010

== ENCOUNTER → 2023-12-19 06:36 | Outpatient (BNV) | payer OTHER, SELFPAY | PROVIDERS: PCP Physician Assistant; Visit Provider Orthopaedic Surgery | DX: S83.241A Other tear of medial meniscus, current injury, right knee, initial encounter (principal) | CPT/HCPCS: 29881 ==

== ENCOUNTER 2023-12-31 10:55 | Outpatient (AMB) | payer OTHER, SELFPAY ==
--- NOTE | 2023-12-31 10:51 | MHC.OFFVIS ---
Intake Visit Reasons: Denial discussion Allergies Sulfa (Sulfonamide Antibiotics) [SULFA(SULFONAMIDE ANTIBIOTICS)] Allergy (Severe, Verified 12/19/23 06:57) Anaphylaxis aspirin Adverse Reaction (Intermediate, Verified 12/19/23 06:57) Gastrointestinal Upset HPI HPI Denial discussion: Details: 58-year-old female who presents today via tele visit for discussion of insurance denial. She received a denial letter from the insurance regarding the coverage of the implant device. She wants to reappeal for the implant device. She has a scheduled appointment with orthopedics today. She also inquired about the different treatment options other than implants. She underwent partial medial meniscectomy and chondroplasty right knee with Dr. Singer on 12/27/2023. Past Procedures: 12/28/21: Lumbar Medial Branch Block, Bilateral L3, L4 medial branches and L5 Dorsal Ramus (2 levels, 3 nerves): No relief. Prior L4-L5 L5-S1 facet injection at [facility] - 80% relief for 5 weeks [facility] Medical History Depression HTN (hypertension) Colon cancer screening History of urinary incontinence History of ADHD Surgical History H/O right breast biopsy H/O left breast biopsy S/P lumpectomy, right breast (06/15/21) History of elbow surgery Family History Father GERD (gastroesophageal reflux disease) Stroke Mother Diabetes GERD (gastroesophageal reflux disease) Depression Hypertension Fibromyalgia Mental health disorder Maternal Grandmother Dementia Uterine cancer Mental health disorder Son Autism Mental health disorder Sister Breast cancer Maternal Aunt Breast cancer Social History Household Members: Family Housing: Apartment Are you a primary care team assistant to a significant other at home: No Do you presently have visiting nurse or other home services: No Alcohol intake: current Alcohol intake frequency: holidays/special occasions only Alcohol type: hard liquor Patient Tobacco Use Status: Former Tobacco user Tobacco use type: Cigarette Years Smoked: 25 e-Cigarette/Vaping Use: Never Used Advance Directives Date on File: 06/15/21 service: No Current occupational status: employed 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 Sexual orientation: Straight/Heterosexual Gender identity: Female Cognitive needs: No Hearing needs: No Vision needs: No Female Reproductive History Menstrual Age of Menarche: 12 Review of Systems Const All systems reviewed & are unremarkable except as noted in HPI and below Telehealth Telehealth Telehealth Platform: Telephone Location of provider rendering services: practice address Location of patient: address on file Patient Identification confirmed using: Name, : Yes Telehealth method: voice only Patient verbally consented to treatment: Yes Patient verbally consented to billing insurance company: Yes Patient informed of any privacy concerns related to visit: Yes Minutes spent on Phone/Video with Pt.: 9 Results Reviewed Results Reviewed: No imaging is available for review. Assessment & Plan Assessment & Plan (1) Intractable back pain: Code(s): M54.9 - Dorsalgia, unspecified Category: Medical Plan We will file an appeal for approval of the procedure and keep her updated. Scribed for Dr. Gutierres by Amandeep Montiel, medical transcription supervisor, on 12/31/2023. I, Dr. Gutierres, have personally reviewed and agree with the information entered by the scribe. Coding Level of Care Code Tele Est Pt Level 2 (02329) Diagnoses Intractable back pain M54.9
== END 2023-12-31 10:56 | disposition home or self-care (01) ==
LOC: HO.PMC 10:55
PROVIDERS: PCP Physician Assistant; Visit Provider Internal Medicine
DX: M54.9 Dorsalgia, unspecified (principal)
CPT/HCPCS: 99212

== ENCOUNTER → 2023-12-31 10:55 | Outpatient (BNVA) | payer OTHER, SELFPAY | PROVIDERS: PCP Physician Assistant; Visit Provider Internal Medicine | DX: S83.231D Complex tear of medial meniscus, current injury, right knee, subsequent encounter (principal) | CPT/HCPCS: 99212 ==

== ENCOUNTER 2023-12-31 13:58 | Outpatient (AMB) | payer OTHER, SELFPAY ==
--- NOTE | 2023-12-31 13:59 | A.OFFVIS_ITS ---
Intake Visit Reasons: PO RT MMR repair 12/19/23 NE Intake Note: Linda is a 58 year old female who presents today for a post op appointment s/p right MMR repair 12/19/23 NE. Patient reports she is doing well. Allergies Sulfa (Sulfonamide Antibiotics) [SULFA(SULFONAMIDE ANTIBIOTICS)] Allergy (Severe, Verified 12/19/23 06:57) Anaphylaxis aspirin Adverse Reaction (Intermediate, Verified 12/19/23 06:57) Gastrointestinal Upset HPI HPI PO RT MMR repair 12/19/23 NE: Details: 58-year-old female who presents in the office today 12 days status post right knee partial medial meniscectomy and chondroplasty, which was performed on 12/19/[address] Singer. ? ? While in the office today, the patient reports she is doing well.? PFSH Medical History Depression HTN (hypertension) Colon cancer screening History of urinary incontinence History of ADHD Surgical History H/O right breast biopsy H/O left breast biopsy S/P lumpectomy, right breast (06/15/21) History of elbow surgery Family History Father GERD (gastroesophageal reflux disease) Stroke Mother Diabetes GERD (gastroesophageal reflux disease) Depression Hypertension Fibromyalgia Mental health disorder Maternal Grandmother Dementia Uterine cancer Mental health disorder Son Autism Mental health disorder Sister Breast cancer Maternal Aunt Breast cancer Social History Household Members: Family Housing: Apartment Are you a primary managed care specialist to a significant other at home: No Do you presently have visiting nurse or other home services: No Alcohol intake: current Alcohol intake frequency: holidays/special occasions only Alcohol type: hard liquor Patient Tobacco Use Status: Former Tobacco user Tobacco use type: Cigarette Years Smoked: 25 e-Cigarette/Vaping Use: Never Used Advance Directives Date on File: 06/15/21 service: No Current occupational status: employed 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 Sexual orientation: Straight/Heterosexual Gender identity: Female Cognitive needs: No Hearing needs: No Vision needs: No Female Reproductive History Menstrual Age of Menarche: 12 Review of Systems Const All systems reviewed & are unremarkable except as noted in HPI and below Physical Exam Const General: cooperative, healthy appearing and no acute distress Resp Effort & Inspection: normal respiratory effort and able to speak in complete sentences Cardio Rate: regular rate Peripheral pulses: Peripheral pulses 2+ throughout GI Palpation (GI): Soft to palpation Skin Lesions: no lesions Rashes: no rashes Extrem Other: Right knee: Incision sites are clean, dry, and intact. Steri-stripes are intact. No surrounding erythema or drainage. No signs of infection. ROM is 15-90 degrees. NVI. Assessment & Plan Assessment & Plan (1) S/P right knee arthroscopy: Code(s): Z98.890 - Other specified postprocedural states Category: Surgical Plan Ms. Epstein is a 58-year-old female who presents in the office today 12 days status post right knee partial medial meniscectomy and chondroplasty, which was performed on 12/19/[address] Singer. ? ? While in the office today, the patient reports she is doing well.? ? The steri-stripes will remain in place to fall off on their own. Should they remain after another week she can remove them at that time. The patient is going to attend an outside facility for physical therapy; therefore, she was supplied with a prescription in the office today. The patient will remain out of work until her follow-up appointment. Follow-up will be in four weeks with Dr. Singer, or sooner if needed. ? Orders: Orders PT Evaluation and Treatment Today S83.231A - Complex tear of medial meniscus, current injury, right knee, initial encounter Patient Instructions: Scribed by Michelle Soto biomedical engineering professor, for Bee Alcazar PA-C on 12/31/2023 at 2:48 pm, EST.? Coding Level of Care Code Global (88770) Diagnoses S/P right knee arthroscopy Z98.890
== END 2023-12-31 14:31 | disposition home or self-care (01) ==
PROVIDERS: PCP Physician Assistant; Visit Provider Physician Assistant
DX: Z98.890 Other specified postprocedural states (principal)
CPT/HCPCS: 99024

== ENCOUNTER 2024-01-28 11:29 | Outpatient (AMB) | payer OTHER, SELFPAY ==
--- NOTE | 2024-01-28 11:31 | MHC.OFFVIS ---
Vital Signs 01/28/24 11:35 Height 5 ft 3.5 in Weight 180 lb BMI 31.4 Intake Visit Reasons: PO-RT MMR repair 12/19/23 NE Intake Note: Linda is a 58 year old female who presents today for a post op appointment s/p right MMR repair 12/19/23. She presents today with Fidelia her telehealth case manager. Patient reports that she is doing well, she is still struggling to walk normal as she is unable to fully extend the leg but continues to work with physical therapy. She is not taking anything for her pain. Allergies Sulfa (Sulfonamide Antibiotics) [SULFA(SULFONAMIDE ANTIBIOTICS)] Allergy (Severe, Verified 12/19/23 06:57) Anaphylaxis aspirin Adverse Reaction (Intermediate, Verified 12/19/23 06:57) Gastrointestinal Upset HPI HPI PO-RT MMR repair 12/19/23 NE: Details: Linda is a 58 year old female who presents today for a post op appointment s/p right MMR repair 12/19/23. She presents today with Fidelia her telehealth case manager. Patient reports that she is doing well, she is still struggling to walk normal as she is unable to fully extend the leg but continues to work with physical therapy. She is not taking anything for her pain. [facility] Medical History Depression HTN (hypertension) Colon cancer screening History of urinary incontinence History of ADHD Surgical History H/O right breast biopsy H/O left breast biopsy S/P lumpectomy, right breast (06/15/21) History of elbow surgery Family History Father GERD (gastroesophageal reflux disease) Stroke Mother Diabetes GERD (gastroesophageal reflux disease) Depression Hypertension Fibromyalgia Mental health disorder Maternal Grandmother Dementia Uterine cancer Mental health disorder Son Autism Mental health disorder Sister Breast cancer Maternal Aunt Breast cancer Social History Household Members: Family Housing: Apartment Are you a primary child caregiver private home to a significant other at home: No Do you presently have visiting nurse or other home services: No Alcohol intake: current Alcohol intake frequency: holidays/special occasions only Alcohol type: hard liquor Patient Tobacco Use Status: Former Tobacco user Tobacco use type: Cigarette Years Smoked: 25 e-Cigarette/Vaping Use: Never Used Advance Directives Date on File: 06/15/21 service: No Current occupational status: employed 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 Sexual orientation: Straight/Heterosexual Gender identity: Female Cognitive needs: No Hearing needs: No Vision needs: No Female Reproductive History Menstrual Age of Menarche: 12 Physical Exam Vital Signs: BMI result Body Mass Index 31.4 Extrem Other: Portals clean dry and intact Mild to moderate effusion 5-125 degrees of motion Assessment & Plan Assessment & Plan (1) S/P right knee arthroscopy: Code(s): Z98.890 - Other specified postprocedural states Category: Surgical Plan: Status post partial medial meniscectomy with intraoperative findings of arthritis. I reviewed this with her. Overall she is doing quite well. I recommend she return to work in 2 weeks. I would like to see her for follow up in 4 weeks. Coding Level of Care Code Global (67613) Diagnoses S/P right knee arthroscopy Z98.890
[2024-01-28 11:35] VITALS: BMI 31.4
== END 2024-01-28 13:49 | disposition home or self-care (01) ==
PROVIDERS: PCP Physician Assistant; Visit Provider Orthopaedic Surgery
DX: Z98.890 Other specified postprocedural states (principal)
CPT/HCPCS: 99024

== ENCOUNTER → 2024-01-28 11:29 | Outpatient (BNVA) | payer OTHER, SELFPAY | PROVIDERS: PCP Physician Assistant; Visit Provider Orthopaedic Surgery | DX: Z47.89 Encounter for other orthopedic aftercare (principal) | CPT/HCPCS: 99212 ==

== ENCOUNTER 2024-02-12 15:32 | Outpatient (AMB) | payer OTHER, SELFPAY ==
--- NOTE | 2024-02-12 15:36 | MHC.OFFVIS ---
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 She reports she lost her long-term 20 year partner about a year and a half ago and is still grieving, is told by many acquaintances to get over it and move on. She is not interested in dating at this timeframe in wondering if there is concerns for future relationships, and if there is anything else she needs to be prepared for. She was researching hormonal supplements and wondered if she should start taking herbal remedies for menopause to keep her estrogen and progesterone balanced with synthetic sourced products. She reports speaking to Dr. Nation who advised against the supplements. She denies any hot flashes, has concerns about her increased weight-belly fat. She currently has a daughter and grandchildren living with her due to their situation and is not able to exercises freely as she had been living alone. [facility] Medical History (Updated 02/12/24 @ 16:02 by Liz Kim CNM) Depression HTN (hypertension) Colon cancer screening History of urinary incontinence History of ADHD Surgical History (Updated 02/12/24 @ 15:40 by ANDREA Marshall) H/O right knee surgery H/O right breast biopsy H/O left breast biopsy S/P lumpectomy, right breast (06/15/21) History of elbow surgery Family History Father GERD (gastroesophageal reflux disease) Stroke Mother Diabetes GERD (gastroesophageal reflux disease) Depression Hypertension Fibromyalgia Mental health disorder Maternal Grandmother Dementia Uterine cancer Mental health disorder Son Autism Mental health disorder Sister Breast cancer Maternal Aunt Breast cancer Social History Household Members: Family Housing: Apartment Are you a primary personal care service provider to a significant other at home: No Do you presently have visiting nurse or other home services: No Alcohol intake: current Alcohol intake frequency: holidays/special occasions only Alcohol type: hard liquor Patient Tobacco Use Status: Former Tobacco user Tobacco use type: Cigarette Years Smoked: 25 e-Cigarette/Vaping Use: Never Used Advance Directives Date on File: 06/15/21 service: No Current occupational status: employed 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 Sexual orientation: Straight/Heterosexual Gender identity: Female Cognitive needs: No Hearing needs: No Vision needs: No Female Reproductive History Menstrual Age of Menarche: 12 Total pregnancies: 3 Full term: 2 Number of Living Children: 2 Date of last pap smear: 03/22/20 (neg pap and hpv) Date of Mammogram: 09/12/23 (Birad 2) Review of Systems Const All systems reviewed & are unremarkable except as noted in HPI and below Reports as per HPI Eyes Reports no additional complaints ENT Reports no additional complaints Card Reports no additional complaints Resp Reports no additional complaints GI Reports as per HPI and Reports no additional complaints Reports as per HPI Musc Reports no additional complaints Skin/Breast Reports as per HPI Neuro Reports no additional complaints Psych Reports no additional complaints Endo Reports no additional complaints Michael/Lymph Reports no additional complaints Aller/Immun Reports no additional complaints Physical Exam Vital Signs: Last Vital Signs BP 112/74 02/12/24 15:37 BMI result Body Mass Index 31.4 Const General: cooperative, healthy appearing, no acute distress, well developed and alert Neuro Cognition (Neuro): normal cognition Psych Attitude: cooperative Thought process: Normal thought process present Assessment & Plan Assessment & Plan (1) Menopause: Code(s): Z78.0 - Asymptomatic menopausal state Category: Medical Plan: Plan Discussed: The product she showed on her cell phone. Overall herbal remedies are not FDA approved or research well or not always quality inspected through [employer] republic[employer] labs. Currently her symptoms do not indicate a need for synthetic hormonal supplements. Concerns for personal breast health and risk for breast cancer. Consistency in dosing varies, just because it says it is natural does not mean that is good for you. She is currently not exercising as much as she would like, plan to increase exercise, including things such as yoga, relaxing activities. Reviewed the grief process, takes time, the process is unique for each individual. She is pursuing counseling to help her work through the grief. Reviewed self care. Rescheduled annual exam. All of her questions and concerns were addressed to the best of my ability and shared decision making. She is agreeable to the plan of care. This note is constructed using voice recognition software. While every effort has been made to ensure accuracy, commercial photographer errors may have been included. Coding Level of Care Code Est Pt Level 3 (54948) Diagnoses Menopause Z78.0
[2024-02-12 15:37] VITALS: BP 112/74; BMI 31.4
== END 2024-02-12 16:16 | disposition home or self-care (01) ==
PROVIDERS: PCP Physician Assistant; Visit Provider Advanced Practice Midwife
DX: Z78.0 Asymptomatic menopausal state (principal)
CPT/HCPCS: 99213

== ENCOUNTER → 2024-02-12 15:32 | Outpatient (BNVA) | payer OTHER, SELFPAY | PROVIDERS: PCP Physician Assistant; Visit Provider Advanced Practice Midwife | DX: Z01.419 Encounter for gynecological examination (general) (routine) without abnormal findings (principal); Z78.0 Asymptomatic menopausal state | CPT/HCPCS: 99212 ==

== ENCOUNTER 2024-02-25 14:26 | Outpatient (AMB) | payer OTHER, SELFPAY ==
--- NOTE | 2024-02-25 14:30 | MHC.OFFVIS ---
Intake Visit Reasons: PO-RT MMR repair 12/19/23 NE Intake Note: Linda is a 58 year old female who presents today for a post op appointment s/p right MMR repair 12/19/23. She presents today with Fidelia her supervisor case loading. Patient reports that the right knee is improving but she is having worsening pain in the left knee. Allergies Sulfa (Sulfonamide Antibiotics) [SULFA(SULFONAMIDE ANTIBIOTICS)] Allergy (Severe, Verified 02/25/24 16:02) Anaphylaxis aspirin Adverse Reaction (Intermediate, Verified 02/25/24 16:02) Gastrointestinal Upset HPI HPI PO-RT MMR repair 12/19/23 NE: Details: Linda is a 58 year old female who presents today for a post op appointment s/p right knee arthroscopy 12/19/23. She presents today with Fidelia her supervisor case loading. Patient reports that the right knee is improving but she is having worsening pain in the left knee. There is some ongoing conflict regarding whether her left knee was injured and the worker's compensation claim or not and she is here today with her switch adjuster. [facility] Medical History Depression HTN (hypertension) Colon cancer screening History of urinary incontinence History of ADHD Surgical History H/O right knee surgery H/O right breast biopsy H/O left breast biopsy S/P lumpectomy, right breast (06/15/21) History of elbow surgery Family History Father GERD (gastroesophageal reflux disease) Stroke Mother Diabetes GERD (gastroesophageal reflux disease) Depression Hypertension Fibromyalgia Mental health disorder Maternal Grandmother Dementia Uterine cancer Mental health disorder Son Autism Mental health disorder Sister Breast cancer Maternal Aunt Breast cancer Social History Household Members: Family Housing: Apartment Are you a primary laboratory animal care veterinarian to a significant other at home: No Do you presently have visiting nurse or other home services: No Alcohol intake: current Alcohol intake frequency: holidays/special occasions only Alcohol type: hard liquor Patient Tobacco Use Status: Former Tobacco user Tobacco use type: Cigarette Years Smoked: 25 e-Cigarette/Vaping Use: Never Used Advance Directives Date on File: 06/15/21 service: No Current occupational status: employed 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 Sexual orientation: Straight/Heterosexual Gender identity: Female Cognitive needs: No Hearing needs: No Vision needs: No Female Reproductive History Menstrual Age of Menarche: 12 Physical Exam Extrem Other: Right knee with no sharp tenderness to palpation and negative Abdirahman's. Trace effusion. Left knee with tenderness to palpation medial compartment and positive medial Abdirahman's. Assessment & Plan Assessment & Plan (1) Localized osteoarthritis of right knee: Code(s): M17.11 - Unilateral primary osteoarthritis, right knee Category: Medical Plan: This is a 58-year-old woman status post right knee arthroscopy with intraoperative findings of arthritis. Her right knee is doing well. She is has returned to work and her primary complaint is her contralateral knee. (2) Internal derangement of left knee: Code(s): M23.92 - Unspecified internal derangement of left knee Category: Medical Plan: On exam left knee is notable for marked medial joint line tenderness and a positive medial Abdirahman's. I recommend home exercises and an injection. Given that the worker's compensation portion of this visit is unspecified in terms of her left knee injection is not appropriate at this time. Her pain has only been present for short while and I recommend she return to see me in 1 month. Coding Level of Care Code Global (15714) Diagnoses Localized osteoarthritis of right knee M17.11 Internal derangement of left knee M23.92
== END 2024-02-25 15:10 | disposition home or self-care (01) ==
PROVIDERS: PCP Physician Assistant; Visit Provider Orthopaedic Surgery
DX: M17.11 Unilateral primary osteoarthritis, right knee (principal); M23.92 Unspecified internal derangement of left knee
CPT/HCPCS: 99024

== ENCOUNTER → 2024-02-25 14:26 | Outpatient (BNVA) | payer OTHER, SELFPAY | PROVIDERS: PCP Physician Assistant; Visit Provider Orthopaedic Surgery | DX: I10 Essential (primary) hypertension (principal); S83.231D Complex tear of medial meniscus, current injury, right knee, subsequent encounter; E78.2 Mixed hyperlipidemia; Z23 Encounter for immunization; M17.11 Unilateral primary osteoarthritis, right knee; M23.92 Unspecified internal derangement of left knee | CPT/HCPCS: 90471; 90656; 90677; 99212 ==

== ENCOUNTER 2024-02-25 15:47 | Outpatient (AMB) | payer OTHER, SELFPAY ==
[2024-02-25 15:49] VITALS: BP 144/84; PULSE 87; O2SAT 97; BMI 32.4
--- NOTE | 2024-02-25 15:49 | MHC.PC.OV ---
Vital Signs 02/25/24 15:49 Height 5 ft 3.5 in Weight 186 lb BMI 32.4 BP 144/84 H Blood Pressure Location Lt brachial Position Sitting Pulse 87 Pulse Source Pulse Oximeter Pulse Oximetry (%) 97 Oxygen Delivery Method Room Air Intake Visit Reasons: f/u borderline high cholesterol Floor Attendant Required: No Accompanied by: Self / Same As Patient Allergies Sulfa (Sulfonamide Antibiotics) [SULFA(SULFONAMIDE ANTIBIOTICS)] Allergy (Severe, Verified 02/25/24 16:02) Anaphylaxis aspirin Adverse Reaction (Intermediate, Verified 02/25/24 16:02) Gastrointestinal Upset Medication List - Last Reconciled 02/25/24 by Liban Watkins PA-C cholecalciferol (vitamin D3) 50 mcg PO DAILY 90 days [cryotherapy machine with compression As directed] zolpidem 10 mg PO BEDTIME PRN 15 days Tobacco use date assessed: 08/27/23 Dental Screening Dental Screen Date: 08/27/23 HPI f/u borderline high cholesterol HPI Details Patient is a 58-year-old female here today for follow-up visit.? Patient has a past medical history significant for? hypertension, tobacco dependence AQUILINO? ADD, palpitations, insomnia, atypical ductal hyperplasia right breast Medial meniscal tear--> has had recent medial meniscal tear repair with [facility]. Unfortunately has gained weight due to being more inactive. She has made in near full recovery from her knee injury. CHRONIC MEDICAL CONDITION--> .. Atypical ductal hyperplasia:? Recently found on mammogram and follow-up with general surgeon and whom has done a wide excision biopsy without evidence of malignancy.? Has followed up with Oncology whom recommends MRI breasts Has had Bone density which showed osteopenia. Recommendations of in made to start tamoxifen the patient has concerns about side effects of blood clots as she is still smoking .. ADHD: Still suffers from ADHD symptoms though does not present a huge disadvantage to her in her life. She reports she continues to work 2 jobs without any issues. Most of her ADHD symptoms present at home in her personal life. She was on Strattera 80 mg in the past though is not interested in any further ADHD medication at this time. .. Former smoker: Quite in July 2022 , I congratulated her on this and she plans to continue to abstain from cigarette smoking. --Of note she does admit to smoking vape on occasions. .. Borderline high cholesterol: Most recent lipid panel done in the spring showing a borderline high cholesterol. .. Hypertension:? Blood pressure slightly elevated today in office..? Patient was on hydrochlorothiazide and propanolol in the past for both hypertension and heart palpitations. She reports she has not had any further help palpitations over the last several months. Again have stopped smoking. [facility] Medical History Depression HTN (hypertension) Colon cancer screening History of urinary incontinence History of ADHD Surgical History H/O right knee surgery H/O right breast biopsy H/O left breast biopsy S/P lumpectomy, right breast (06/15/21) History of elbow surgery Family History Father GERD (gastroesophageal reflux disease) Stroke Mother Diabetes GERD (gastroesophageal reflux disease) Depression Hypertension Fibromyalgia Mental health disorder Maternal Grandmother Dementia Uterine cancer Mental health disorder Son Autism Mental health disorder Sister Breast cancer Maternal Aunt Breast cancer Social History Household Members: Family Housing: Apartment Are you a primary child care education coordinator to a significant other at home: No Do you presently have visiting nurse or other home services: No Alcohol intake: current Alcohol intake frequency: holidays/special occasions only Alcohol type: hard liquor Patient Tobacco Use Status: Former Tobacco user Tobacco use type: Cigarette Years Smoked: 25 e-Cigarette/Vaping Use: Never Used Advance Directives Date on File: 06/15/21 service: No Current occupational status: employed 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 Sexual orientation: Straight/Heterosexual Gender identity: Female Cognitive needs: No Hearing needs: No Vision needs: No Female Reproductive History Menstrual Age of Menarche: 12 Questionnaire PHQ-9 Over the last 2 weeks, how often have you been bothered by any of the following problems? 1. Little interest or pleasure in doing things: nearly every day 2. Feeling down, depressed, or hopeless: more than half the days 3. Trouble falling or staying asleep, or sleeping too much: more than half the days 4. Feeling tired or having little energy: nearly every day 5. Poor appetite or overeating: nearly every day 6. Feeling bad about yourself - or that you are a failure or have let yourself or your family down: nearly every day 7. Trouble concentrating on things, such as reading the newspaper or watching television: nearly every day 8. Moving or speaking so slowly that other people could have noticed. Or the opposite - being so fidgety or restless that you have been moving around a lot more than usual: nearly every day 9. Thoughts that you would be better off or of hurting yourself in some way: not at all Total score: 22 Depression Screening Interpretation: Positive Depression Screening Follow-up: Existing condition Depression Screening Done: Yes 09247 - PHQ-9 Billing: Yes Source: Developed by Drs. Brody Hathaway, Adriane Kim, Carlitos Cordoba and colleagues, with an educational hudson from [employer]. Thrive Questionnaire Date Thrive assessed: 08/27/23 AUDIT C Alcohol Use Questionnaire (AUDIT-C) 1. How often do you have a drink containing alcohol?: Never 3. How often do you have six or more drinks on one occasion?: Never Total Score: 0 AQUILINO-7 AMB Questionnaire AQUILINO-7 Date AQUILINO - 7 assessed: 08/27/23 Source: Developed by Drs. Brody Hathaway, Adriane Kim, Carlitos Cordoba and colleagues, with an educational hudson from [employer]. Review of Systems Const Denies headache(s) Eyes Denies loss of vision ENT Denies vertigo, Denies dizziness, Denies headache(s) and Denies sore throat Card Denies chest pain, Denies leg edema and Denies lightheadedness Resp Denies cough, Denies hemoptysis and Denies wheezing GI Denies abdominal pain, Denies melena, Denies constipation, Denies diarrhea and Denies vomiting Denies urinary frequency, Denies dysuria and Denies urinary urgency Musc Denies arthralgias, Denies joint swelling, Denies numbness and Denies tingling Neuro Denies Abnormal speech present, Denies behavioral changes, Denies vertigo, Denies dizziness, Denies headache(s), Denies loss of vision, Denies memory loss, Denies numbness and Denies tingling Psych Denies anxiety, Denies behavioral changes, Denies depression, Denies memory loss and Denies panic attacks Michael/Lymph Denies easy bleeding and Denies easy bruising Aller/Immun Denies wheezing Physical exam (Primary Care) Vital Signs: Last Vital Signs Pulse 87 02/25/24 15:49 BP 144/84 H 02/25/24 15:49 Pulse Ox 97 02/25/24 15:49 Oxygen Delivery Method Room Air 02/25/24 15:49 BMI result Body Mass Index 32.4 Tobacco/Smoking Status: Tobacco use Status Tobacco use date assessed 08/27/23 02/25/24 15:54 Patient Tobacco Use Status Former Tobacco user 02/25/24 15:54 Tobacco use type Cigarette 02/25/24 15:54 e-Cigarette/Vaping Use Never Used 02/25/24 15:54 PHQ-9: PHQ-9 Score PHQ-9: Total score 22 02/25/24 16:51 Depression Screening Interpretation: Positive Depression Screening Follow-up: Existing condition Thrive Assessment: Date of Thrive Assessment Date Thrive assessed 08/27/23 02/25/24 15:54 Const General: healthy appearing, no acute distress, alert and awake Nutritional Appearance: well nourished Orientation/consciousness: oriented to person, oriented to place and oriented to time HENMT Ears: TM's normal bilaterally General nose exam: Normal nasal mucous membranes and turbinates present Eyes Conjunctivae: conjunctivae normal Sclerae: sclerae normal Pupils: Equal, round and reactive pupils present Neck Neck: Yes no lymphadenopathy and Yes no JVD Thyroid: Thyroid normal Carotids: no bruits Resp Effort & Inspection: normal respiratory effort and not tachypneic Auscultation: no crackles, no rales, no rhonchi and no wheezes Cardio Rate: regular rate Rhythm: regular rhythm Heart sounds: no murmurs and normal S1 and S2 GI Palpation (GI): Soft to palpation, nontender, no hepatomegaly and no splenomegaly Auscultation: normal bowel sounds Skin General skin exam: no rashes or lesions noted and dry skin Neuro General: oriented to person, oriented to place and oriented to time Cranial nerves: Yes Equal, round and reactive pupils present Speech: No Abnormal speech present Gait exam (Neuro): Normal gait present Motor exam (neuro): no tremor noted Extrem Right upper extremity: full ROM Left upper extremity: full ROM Right lower extremity: full ROM; no edema Left lower extremity: full ROM; no edema Psych Mental Status: mental status grossly normal Speech and movement: Normal speech and movement present Affect: normal affect Attitude: cooperative Thought process: Normal thought process present Office Procedures Flu Questionnaire Does the patient have a severe egg allergy?: No Does the patient have severe life threatening allergies?: No Does the patient have a fever or illness today?: No Has the patient ever had Guillain-[place] Syndrome?: No Has the patient ever had any past reaction to a flu shot?: No Immunizations Fluarix Triv (PF) 45 mcg (15 mcg x 3)/0.5 mL IM syringe Performing Provider: Liban Watkins PA-C Performing Location: [facility] [place] [facility] Administered by: Michelle Call LPN on 02/25/24 16:51 Dose Route Admin Location Dispensed Lot Number Expiration Date [place] Pasting Machine Offbearer 0.5 mL IM Left Deltoid 0.5 mL [id number] 11/03/24 75543-846-10 [employer] VIS Given Date VIS Provided VIS Publication Date 02/25/24 Single Vaccine 20 Eligibility Eligibility Date Funding Source Not VFC Eligible 02/25/24 Private pneumoc 20-irena conj-dip cr(PF) 0.5 mL IM syringe Performing Provider: Liban Watkins PA-C Performing Location: [facility] Administered by: Michelle Call LPN on 02/25/24 16:52 Dose Route Admin Location Dispensed Lot Number Expiration Date [facility] Pasting Machine Offbearer 0.5 mL IM Left Deltoid 0.5 mL [id number] 05/05/25 [id number] [employer] VIS Given Date VIS Provided VIS Publication Date 02/25/24 Single Vaccine 21 Eligibility Eligibility Date Funding Source Not VFC Eligible 02/25/24 Private Coding Level of Care Code Est Pt Level 4 (47107) Diagnoses Primary hypertension I10 Hypertension type: primary hypertension Complex tear of medial meniscus of right knee as current injury, initial encounter S83.231A Tear current or old: current Encounter type: initial encounter Meniscus tear of knee type: complex Laterality: right Mixed hyperlipidemia E78.2 Hyperlipidemia type: mixed hyperlipidemia Assessment & Plan Assessment & Plan (1) HTN (hypertension): Code(s): I10 - Essential (primary) hypertension Category: Medical Qualifiers: Hypertension type: primary hypertension Qualified Code(s): I10 - Essential (primary) hypertension Plan: Patient's blood pressure slightly elevated today in office. She has not been on any blood pressure medication at this time. Reports having a cup of coffee before today's visit. She was able to get off of blood pressure medication previously due to better eating habits and being more physically active. She would like to continue lifestyle and dietary modifications to control her blood pressure. Goal blood pressures to remain below 140/90 (2) Medial meniscus tear: Code(s): S83.249A - Other tear of medial meniscus, current injury, unspecified knee, initial encounter Category: Medical Qualifiers: Tear current or old: current Encounter type: initial encounter Meniscus tear of knee type: complex Laterality: right Qualified Code(s): S83.231A - Complex tear of medial meniscus, current injury, right knee, initial encounter Plan: Has had her medial meniscal repair through [facility]. Has made a near full recovery. She has been out of work due to worker's comp claim due to her knee injury. (3) Hyperlipidemia: Code(s): E78.5 - Hyperlipidemia, unspecified Category: Medical Qualifiers: Hyperlipidemia type: mixed hyperlipidemia Qualified Code(s): E78.2 - Mixed hyperlipidemia Plan: Patient's most recent lipid panel showing elevated total cholesterol and LDL. She is working on lifestyle and dietary modifications to reduce her cholesterol. Will repeat a fasting lipid panel to evaluate and if LDL above 160 will consider statin therapy. Orders: Orders Influenza [id number] Immunization 02/25/24 Z23 - Encounter for immunization Pneumococcal 20 Immunization 02/25/24 Z23 - Encounter for immunization Medications: New cholecalciferol (vitamin D3) 1,250 mcg PO QWEEK 12 caps 0RF 12 weeks F33.0 - Major depressive disorder, recurrent, mild Changed From zolpidem 10 mg PO BEDTIME 15 days PRN 15 tabs 1RF prn G47.00 - Insomnia, unspecified To zolpidem 10 mg PO BEDTIME 30 tabs 1RF prn 30 days G47.00 - Insomnia, unspecified Discontinued cholecalciferol (vitamin D3) Discontinued Reason: Doctor's Order 50 mcg PO DAILY 90 days 90 caps 1RF E55.9 - Vitamin D deficiency, unspecified
== END 2024-02-25 16:46 | disposition home or self-care (01) ==
PROVIDERS: PCP Physician Assistant; Visit Provider Physician Assistant
DX: I10 Essential (primary) hypertension (principal); S83.231A Complex tear of medial meniscus, current injury, right knee, initial encounter; E78.2 Mixed hyperlipidemia

== ENCOUNTER → 2024-03-10 15:55 | Outpatient (BNV) | payer OTHER, SELFPAY | PROVIDERS: PCP Physician Assistant; Visit Provider Internal Medicine | DX: Z80.3 Family history of malignant neoplasm of breast (principal) | CPT/HCPCS: 77049 ==

== ENCOUNTER 2024-03-10 15:56 | Outpatient (REF) | payer OTHER, SELFPAY ==
--- NOTE | ~2024-03-10 | MR_ITS ---
EXAMINATION: MR BREAST WITHOUT AND WITH CONTRAST, BILATERAL CLINICAL INFORMATION: Strong family history of breast cancer. Annual screening surveillance. COMPARISON: Breast MRI'2021 mammography September 2023. TECHNIQUE: MR imaging of the breast was performed using T1, T2 and fat saturated techniques. Dynamic multiphase imaging was also performed after administration of intravenous gadolinium contrast agent. FINDINGS: study is limited in evaluation due to no had kinetic and motion artifact. There is heterogeneous fibroglandular breast tissue with moderate background enhancement with scattered enhancing foci bilaterally. LEFT BREAST: No suspicious enhancing mass or nonmass enhancement. No axillary or internal mammary adenopathy. RIGHT BREAST: No suspicious enhancing mass or nonmass enhancement. No axillary or internal mammary adenopathy. Limited views of the chest and abdomen are unremarkable. MR/MR breast BI wo/w con IMPRESSION: No MR evidence of malignancy bilateral breasts. ASSESSMENT: LEFT BREAST: BI-RADS 1-Negative RIGHT BREAST: BI-RADS 1-Negative RECOMMENDATIONS: Yearly MRI screening surveillance. Electronically signed by: Reny France DO 03/18/2024 12:47 PM HANK
[2024-03-10] MEDS: gadobutroL 10 ML VIAL IVPUSH (17:27)
== END 2024-03-10 15:57 | disposition home or self-care (01) ==
LOC: HO.MRI 15:56
PROVIDERS: PCP Physician Assistant; Visit Provider Surgery
DX: N60.91 Unspecified benign mammary dysplasia of right breast (principal); Z80.3 Family history of malignant neoplasm of breast
CPT/HCPCS: 77049; A9585

== ENCOUNTER 2024-03-24 10:47 | Outpatient (AMB) | payer OTHER, SELFPAY ==
--- NOTE | 2024-03-24 10:51 | A.OFFVIS_ITS ---
Vital Signs 03/24/24 10:53 Height 5 ft 3 in Weight 186 lb BMI 32.9 Intake Visit Reasons: OV - Left Knee Pain Intake Note: Linda is a 58 year old female who presents today for a follow up of her left knee. Patient reports that she is hoping to have an injection today. Patient reports that the left knee is having continued pain, with mild improvement. Allergies Sulfa (Sulfonamide Antibiotics) [SULFA(SULFONAMIDE ANTIBIOTICS)] Allergy (Severe, Verified 03/24/24 10:55) Anaphylaxis aspirin Adverse Reaction (Intermediate, Verified 03/24/24 10:55) Gastrointestinal Upset HPI HPI OV - Left Knee Pain: Details: A 58-year-old woman status post right knee arthroscopy with left knee swelling and pain. She feels it has been preventing her from progressing forward in recovering from a right knee arthroscopy. We had discussed this at last visit but because of his work worker's comp we want to make sure we had approval. Apparently we do have approval and she would like to get a left knee injection today. [facility] Medical History Depression HTN (hypertension) Colon cancer screening History of urinary incontinence History of ADHD Surgical History H/O right knee surgery H/O right breast biopsy H/O left breast biopsy S/P lumpectomy, right breast (06/15/21) History of elbow surgery Family History Father GERD (gastroesophageal reflux disease) Stroke Mother Diabetes GERD (gastroesophageal reflux disease) Depression Hypertension Fibromyalgia Mental health disorder Maternal Grandmother Dementia Uterine cancer Mental health disorder Son Autism Mental health disorder Sister Breast cancer Maternal Aunt Breast cancer Social History Household Members: Family Housing: Apartment Are you a primary health care attorney to a significant other at home: No Do you presently have visiting nurse or other home services: No Alcohol intake: current Alcohol intake frequency: holidays/special occasions only Alcohol type: hard liquor Patient Tobacco Use Status: Former Tobacco user Tobacco use type: Cigarette Years Smoked: 25 e-Cigarette/Vaping Use: Never Used Advance Directives Date on File: 06/15/21 service: No Current occupational status: employed 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 Sexual orientation: Straight/Heterosexual Gender identity: Female Cognitive needs: No Hearing needs: No Vision needs: No Female Reproductive History Menstrual Age of Menarche: 12 Physical Exam Vital Signs: BMI result Body Mass Index 32.9 Extrem Other: Right knee with no sharp tenderness to palpation and negative Abdirahman's. Trace effusion. Left knee with tenderness to palpation medial compartment and positive medial Abdirahman's. Office Procedures Joint Inj/Aspir; Non-Pain Clin Joint Injection/Drain Details: Injected 1 mL of Decadron and 3 mL 1% lidocaine and 3 mL of 0.25% Marcaine. Site was prepped using aseptic technique. Patient tolerated the procedure well. Approach Used: anterolateral Shoulders, Hips, Knees, Knee Large Joint Injection : Left Knee Coding Procedure code (CPT) selection complete Assessment & Plan Assessment & Plan (1) Internal derangement of left knee: Code(s): M23.92 - Unspecified internal derangement of left knee Category: Medical Plan: Left knee effusion with pain. I injected the left knee. Continue current work restrictions and follow up as scheduled. Coding Level of Care Code Est Pt Level 2 (53752) Diagnoses Internal derangement of left knee M23.92 CPT Codes Shoulders, Hips, Knees, - Knee Large Joint Injection : Left Knee ([id number])
[2024-03-24 10:53] VITALS: BMI 32.9
== END 2024-03-24 11:21 | disposition home or self-care (01) ==
PROVIDERS: PCP Physician Assistant; Visit Provider Orthopaedic Surgery
DX: M23.92 Unspecified internal derangement of left knee (principal)
CPT/HCPCS: 20610; 99213

== ENCOUNTER → 2024-03-24 10:47 | Outpatient (BNVA) | payer OTHER, SELFPAY | PROVIDERS: PCP Physician Assistant; Visit Provider Orthopaedic Surgery | DX: M23.92 Unspecified internal derangement of left knee (principal) | CPT/HCPCS: 20610; 99212; J0665; J1100; J2003 ==

== ENCOUNTER 2024-04-07 10:44 | Outpatient (AMB) | payer OTHER, SELFPAY ==
--- NOTE | 2024-04-07 10:46 | MHC.OFFVIS ---
Intake Visit Reasons: OV -RT MMR repair 12/19/23 NE Intake Note: Linda is a 58 year old female who presents today for a post op appointment s/p right MMR repair 12/19/23. Allergies Sulfa (Sulfonamide Antibiotics) [SULFA(SULFONAMIDE ANTIBIOTICS)] Allergy (Severe, Verified 03/24/24 10:55) Anaphylaxis aspirin Adverse Reaction (Intermediate, Verified 03/24/24 10:55) Gastrointestinal Upset HPI HPI OV -RT MMR repair 12/19/23 NE: Details: Linda is a 58 year old female who presents today for a post op appointment s/p right partial medial meniscectomy 12/19/23. She feels well. She does have aching and pain in both her knees and has bilateral patellofemoral osteoarthritis. [facility] Medical History Depression HTN (hypertension) Colon cancer screening History of urinary incontinence History of ADHD Surgical History H/O right knee surgery H/O right breast biopsy H/O left breast biopsy S/P lumpectomy, right breast (06/15/21) History of elbow surgery Family History Father GERD (gastroesophageal reflux disease) Stroke Mother Diabetes GERD (gastroesophageal reflux disease) Depression Hypertension Fibromyalgia Mental health disorder Maternal Grandmother Dementia Uterine cancer Mental health disorder Son Autism Mental health disorder Sister Breast cancer Maternal Aunt Breast cancer Social History Household Members: Family Housing: Apartment Are you a primary medicare compliance auditor to a significant other at home: No Do you presently have visiting nurse or other home services: No Alcohol intake: current Alcohol intake frequency: holidays/special occasions only Alcohol type: hard liquor Patient Tobacco Use Status: Former Tobacco user Tobacco use type: Cigarette Years Smoked: 25 e-Cigarette/Vaping Use: Never Used Advance Directives Date on File: 06/15/21 service: No Current occupational status: employed 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 Sexual orientation: Straight/Heterosexual Gender identity: Female Cognitive needs: No Hearing needs: No Vision needs: No Female Reproductive History Menstrual Age of Menarche: 12 Physical Exam Extrem Other: Full painless range of motion right knee with mild effusion bilaterally. Assessment & Plan Assessment & Plan (1) Localized osteoarthritis of right knee: Code(s): M17.11 - Unilateral primary osteoarthritis, right knee Category: Medical Plan: Right knee osteoarthritis and status post meniscectomy. She may return to work without restrictions. (2) S/P right knee arthroscopy: Code(s): Z98.890 - Other specified postprocedural states Category: Surgical Plan: Right knee osteoarthritis and status post meniscectomy. She may return to work without restrictions. She may see me if needed but no additional intervention warranted at this time. Coding Level of Care Code Global (24950) Diagnoses Localized osteoarthritis of right knee M17.11 S/P right knee arthroscopy Z98.890
== END 2024-04-07 11:13 | disposition home or self-care (01) ==
PROVIDERS: PCP Physician Assistant; Visit Provider Orthopaedic Surgery
DX: M17.11 Unilateral primary osteoarthritis, right knee (principal); S83.241D Other tear of medial meniscus, current injury, right knee, subsequent encounter
CPT/HCPCS: 99212

== ENCOUNTER → 2024-04-07 10:44 | Outpatient (BNVA) | payer OTHER, SELFPAY | PROVIDERS: PCP Physician Assistant; Visit Provider Orthopaedic Surgery | DX: M17.11 Unilateral primary osteoarthritis, right knee (principal); Z09 Encounter for follow-up examination after completed treatment for conditions other than malignant neoplasm; Z98.890 Other specified postprocedural states | CPT/HCPCS: 99212 ==

== ENCOUNTER → 2024-04-08 15:13 | Outpatient (BNVA) | payer OTHER, SELFPAY | PROVIDERS: PCP Physician Assistant ==

== ENCOUNTER 2024-09-17 10:43 | Outpatient (REF) | payer OTHER, SELFPAY ==
--- NOTE | ~2024-09-17 | MM_ITS ---
EXAMINATION: MM SCREENING DIGITAL BREAST TOMOSYNTHESIS, BILATERAL CLINICAL INFORMATION: Screening. Asymptomatic. Right excisional biopsy. COMPARISON: Mammography: Comparison is made with available priors TECHNIQUE: Digital breast mammography with tomosynthesis is performed in both the craniocaudal and mediolateral oblique views along with computer-aided detection (CAD). FINDINGS: There are scattered areas of fibroglandular density (ACR BI-RADS breast composition Category b). Right post surgical changes are stable. Right marker clip. There are no significant masses, abnormal calcifications, or other abnormalities. MM/MM tomosynthesis screening BI IMPRESSION: No mammographic evidence of malignancy. ASSESSMENT: BI-RADS BI-RADS 2 - Benign Findings RECOMMENDATION: Routine annual mammography screening. 1 year F/U This examination should not preclude the clinical evaluation of a suspicious palpable abnormality. This patient's information was entered into a reminder system with a target due date for their next mammogram. Electronically signed by: Reny France DO 09/17/2024 02:09 PM EDT
== END 2024-09-17 10:44 | disposition home or self-care (01) ==
LOC: HO.MAMMO 10:43
PROVIDERS: PCP Physician Assistant; Visit Provider Physician Assistant
DX: Z12.31 Encounter for screening mammogram for malignant neoplasm of breast (principal)
CPT/HCPCS: 77063; 77067

== ENCOUNTER → 2024-09-17 11:00 | Outpatient (BNV) | payer OTHER, SELFPAY | PROVIDERS: PCP Physician Assistant; Visit Provider Internal Medicine | DX: Z12.31 Encounter for screening mammogram for malignant neoplasm of breast (principal) | CPT/HCPCS: 77063; 77067 ==

== ENCOUNTER 2024-10-27 08:44 | Outpatient (AMB) | payer OTHER, SELFPAY ==
[2024-10-27 08:48] VITALS: BP 106/78; PULSE 100; TEMP 36.2; O2SAT 97; BMI 32.1
--- NOTE | 2024-10-27 08:48 | MHC.PC.OV ---
Vital Signs 10/27/24 08:48 Height 5 ft 3 in Weight 181 lb 6 oz BMI 32.1 BP 106/78 Blood Pressure Location Lt brachial Position Sitting Pulse 100 Pulse Source Pulse Oximeter Temp 97.1 F Temp Source Temporal Artery Scan Pulse Oximetry (%) 97 Oxygen Delivery Method Room Air Intake Visit Reasons: Orthopedic referral Underwriting Account Representative Required: No Accompanied by: Self / Same As Patient Allergies Sulfa (Sulfonamide Antibiotics) (SULFA(SULFONAMIDE ANTIBIOTICS)) Allergy (Severe, Verified 10/27/24 09:06) Anaphylaxis aspirin Adverse Reaction (Intermediate, Verified 10/27/24 09:06) Gastrointestinal Upset Medication List - Last Reconciled 10/27/24 by Liban Watkins PA-C cholecalciferol (vitamin D3) 1,250 mcg PO QWEEK 12 weeks [cryotherapy machine with compression As directed] zolpidem 10 mg PO BEDTIME 30 days Tobacco use date assessed: 10/27/24 Dental Screening Dental Screen Date: 10/27/24 Did you have a dental visit in the last 12 months?: Yes Did you have a dental problem in the last 6 months where you did not have access to dental care?: No Was dental information given to patient?: Patient has dentist HPI Orthopedic referral HPI Details The patient is a 59-year-old female presenting for an orthopedic referral for knee pain and management of chronic low back pain. The patient reports a history of osteoarthritis in her knees, with previous surgical intervention on one knee. She experiences significant pain, particularly when ascending stairs, and feels that her condition may require surgical intervention sooner than anticipated. She has been advised to receive injections as needed, but feels that these are no longer sufficient. The patient also suffers from chronic low back pain, described as [id number] sensation, with MRI findings indicating degenerative changes at L4-L5 and L5-S1. 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 Previous pain management strategies included injections, which were painful and not entirely effective. [facility] Medical History Depression HTN (hypertension) Colon cancer screening History of urinary incontinence History of ADHD Surgical History H/O right knee surgery H/O right breast biopsy H/O left breast biopsy S/P lumpectomy, right breast (06/15/21) History of elbow surgery Family History Father GERD (gastroesophageal reflux disease) Stroke Mother Diabetes GERD (gastroesophageal reflux disease) Depression Hypertension Fibromyalgia Mental health disorder Maternal Grandmother Dementia Uterine cancer Mental health disorder Son Autism Mental health disorder Sister Breast cancer Maternal Aunt Breast cancer Social History Household Members: Family Housing: Apartment Are you a primary team primary care physician to a significant other at home: No Do you presently have visiting nurse or other home services: No Alcohol intake: current Alcohol intake frequency: holidays/special occasions only Alcohol type: hard liquor Patient Tobacco Use Status: Former Tobacco user Tobacco use type: Cigarette Years Smoked: 25 e-Cigarette/Vaping Use: Never Used Advance Directives Date on File: 06/15/21 service: No Current occupational status: employed 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 Sexual orientation: Straight/Heterosexual Gender identity: Female Cognitive needs: No Hearing needs: No Vision needs: No Female Reproductive History Menstrual Age of Menarche: 12 Questionnaire PHQ-9 Over the last 2 weeks, how often have you been bothered by any of the following problems? 1. Little interest or pleasure in doing things: nearly every day 2. Feeling down, depressed, or hopeless: more than half the days 3. Trouble falling or staying asleep, or sleeping too much: nearly every day 4. Feeling tired or having little energy: nearly every day 5. Poor appetite or overeating: not at all 6. Feeling bad about yourself - or that you are a failure or have let yourself or your family down: more than half the days 7. Trouble concentrating on things, such as reading the newspaper or watching television: nearly every day 8. Moving or speaking so slowly that other people could have noticed. Or the opposite - being so fidgety or restless that you have been moving around a lot more than usual: not at all 9. Thoughts that you would be better off or of hurting yourself in some way: not at all Total score: 16 Depression Screening Interpretation: Positive Depression Screening Follow-up: Existing condition and Community Mental Health Worker F/U Depression Screening Done: Yes 58738 - PHQ-9 Billing: Yes Source: Developed by Drs. Brody Hathaway, Adriane Kim, Carlitos Cordoba and colleagues, with an educational hudson from [employer]. Thrive Questionnaire Date Thrive assessed: 10/27/24 I am a: Patient What is your living situation today?: I have a steady place to live Within the past 12 months, did the food you bought not last and you didn't have the money to get more?: Never true Within the past 12 months, did you worry whether your food would run out before you got money to buy more?: Never true Do you have trouble paying for medicines?: No Do you have trouble getting transportation to medical appointments?: No Do you have trouble paying your heating and electricity bill?: No Do you have trouble taking care of your child, family member or friend?: No Do you have trouble with day-to-day activities such as bathing, preparing meals, shopping, managing finances, etc.?: No Are you currently unemployed and looking for a job?: No Are you interested in more education?: No Please select the resources that you would like help with: None Currently or been in a relationship where the following occur: No concerns reported THRIVE Score: 0 AUDIT C Alcohol Use Questionnaire (AUDIT-C) 1. How often do you have a drink containing alcohol?: Never 3. How often do you have six or more drinks on one occasion?: Never Total Score: 0 AQUILINO-7 AMB Questionnaire AQUILINO-7 Date AQUILINO - 7 assessed: 10/27/24 Feeling nervous, anxious, or on edge: 3 = Nearly every day Not being able to stop or control worryin = More than half the days Worrying too much about different things: 3 = Nearly every day Trouble relaxin = Nearly every day Being so restless that it is hard to sit still: 1 = Several days Becoming easily annoyed or irritable: 3 = Nearly every day Feeling afraid as if something awful might happen: 2 = More than half the days Total AQUILINO-7 score (0-4 normal; 5-9 mild; 10-14 moderate; 15-21 severe): 17 Source: Developed by Adriane RobertsonW. Julio, Carlitos Cordoba and colleagues, with an educational hudson from [employer]. AQUILINO-7 Assessment Billing AQUILINO-7 Assessment Tool: AQUILINO-7 Assessment 26309 Review of Systems Const Denies headache(s) Eyes Denies loss of vision ENT Denies vertigo, Denies dizziness, Denies headache(s) and Denies sore throat Card Denies chest pain, Denies leg edema and Denies lightheadedness Resp Denies cough, Denies hemoptysis and Denies wheezing GI Denies abdominal pain, Denies melena, Denies constipation, Denies diarrhea and Denies vomiting Denies urinary frequency, Denies dysuria and Denies urinary urgency Musc Denies arthralgias, Denies joint swelling, Denies numbness and Denies tingling Neuro Denies Abnormal speech present, Denies behavioral changes, Denies vertigo, Denies dizziness, Denies headache(s), Denies loss of vision, Denies memory loss, Denies numbness and Denies tingling Psych Denies anxiety, Denies behavioral changes, Denies depression, Denies memory loss and Denies panic attacks Michael/Lymph Denies easy bleeding and Denies easy bruising Aller/Immun Denies wheezing Physical exam (Primary Care) Vital Signs: Last Vital Signs Temp 97.1 F 10/27/24 08:48 Pulse 100 10/27/24 08:48 BP 106/78 10/27/24 08:48 Pulse Ox 97 10/27/24 08:48 Oxygen Delivery Method Room Air 10/27/24 08:48 BMI result Body Mass Index 32.1 Tobacco/Smoking Status: Tobacco use Status Tobacco use date assessed 10/27/24 10/27/24 08:59 Patient Tobacco Use Status Former Tobacco user 10/27/24 08:54 Tobacco use type Cigarette 10/27/24 08:54 e-Cigarette/Vaping Use Never Used 10/27/24 08:54 PHQ-9: PHQ-9 Score PHQ-9: Total score 16 10/27/24 09:07 Depression Screening Interpretation: Positive Depression Screening Follow-up: Existing condition and Community Mental Health Worker F/U Thrive Assessment: Date of Thrive Assessment Date Thrive assessed 10/27/24 10/27/24 08:54 Currently or been in a relationship where the following occur: No concerns reported Const General: healthy appearing, no acute distress, alert and awake Nutritional Appearance: well nourished Orientation/consciousness: oriented to person, oriented to place and oriented to time HENMT Ears: TM's normal bilaterally General nose exam: Normal nasal mucous membranes and turbinates present Eyes Conjunctivae: conjunctivae normal Sclerae: sclerae normal Pupils: Equal, round and reactive pupils present Neck Neck: Yes no lymphadenopathy and Yes no JVD Thyroid: Thyroid normal Carotids: no bruits Resp Effort & Inspection: normal respiratory effort and not tachypneic Auscultation: no crackles, no rales, no rhonchi and no wheezes Cardio Rate: regular rate Rhythm: regular rhythm Heart sounds: no murmurs and normal S1 and S2 GI Palpation (GI): Soft to palpation, nontender, no hepatomegaly and no splenomegaly Auscultation: normal bowel sounds Back/Spine/Pelvis Other: PATIENT AMBULATING WITH AN ANTALGIC GAIT LIMITED RANGE OF MOTION OF THE LUMBAR SPINE DUE TO PAIN AND STIFFNESS Skin General skin exam: no rashes or lesions noted and dry skin Neuro General: oriented to person, oriented to place and oriented to time Cranial nerves: Yes Equal, round and reactive pupils present Speech: No Abnormal speech present Gait exam (Neuro): Normal gait present Motor exam (neuro): no tremor noted Extrem Right upper extremity: full ROM Left upper extremity: full ROM Right lower extremity: full ROM; no edema Left lower extremity: full ROM; no edema Psych Mental Status: mental status grossly normal Speech and movement: Normal speech and movement present Affect: normal affect Attitude: cooperative Thought process: Normal thought process present Coding Level of Care Code Est Pt Level 4 (10028) Diagnoses Primary osteoarthritis of both knees M17.0 Osteoarthritis type: primary Laterality: bilateral Lumbar spondylosis M47.816 MDD (major depressive disorder), recurrent episode, moderate F33.1 Additional Codes AQUILINO-7 Assessment Billing - AQUILINO-7 Assessment Tool: AQUILINO-7 Assessment 81267 ([id number]) PHQ-9 - 48982 - PHQ-9 Billing: Yes ([id number]) Assessment & Plan Assessment & Plan (1) Knee osteoarthritis: Code(s): M17.9 - Osteoarthritis of knee, unspecified Category: Medical Qualifiers: Osteoarthritis type: primary Laterality: bilateral Qualified Code(s): M17.0 - Bilateral primary osteoarthritis of knee Plan: The patient will be referred to an financial specialist for further evaluation and management of her knee osteoarthritis. Consideration for knee replacement surgery will be discussed, given the patient's significant pain and functional limitations. In the interim, pain management strategies, including possible injections, will be considered. (2) Lumbar spondylosis: Code(s): M47.816 - Spondylosis without myelopathy or radiculopathy, lumbar region Category: Medical Plan: The patient will be referred for a lumbar spine x-ray to assess current status and determine the need for further imaging or intervention. A referral to a neurosurgeon for evaluation of potential surgical options will be considered, given the patient's significant pain and MRI findings. Pain management strategies, including possible injections, will be revisited. (3) MDD (major depressive disorder), recurrent episode, moderate: Code(s): F33.1 - Major depressive disorder, recurrent, moderate Category: Medical Plan: Patient's PHQ-9 score positive for moderate depression which has been existing condition for her. She is willing to speak with the another mental health therapist Orders: Orders XR lumbar spine 4V min 10/27/24 M47.816 - Spondylosis without myelopathy or radiculopathy, lumbar region MR lumbar spine wo con 10/27/24 M47.816 - Spondylosis without myelopathy or radiculopathy, lumbar region Lipid Panel 10/27/24 E78.2 - Mixed hyperlipidemia Complete Blood Count no Diff 10/27/24 E78.2 - Mixed hyperlipidemia Comprehensive Clark. Panel Fast 10/27/24 E78.2 - Mixed hyperlipidemia Vitamin B12 and Folate 10/27/24 E53.8 - Deficiency of other specified B group vitamins, R23.2 - Flushing Microalbumin, Random (w Creat) 10/27/24 I10 - Essential (primary) hypertension Referrals Counseling Referral F32.A - Depression, unspecified Orthopedics Referral M23.92 - Unspecified internal derangement of left knee Gastroenterology Referral Z12.11 - Encounter for screening for malignant neoplasm of colon Medications: Refilled cholecalciferol (vitamin D3) 1,250 mcg PO QWEEK 12 caps 1RF 12 weeks F33.0 - Major depressive disorder, recurrent, mild zolpidem 10 mg PO BEDTIME 30 tabs 2RF prn 30 days G47.00 - Insomnia, unspecified
== END 2024-10-27 09:33 | disposition home or self-care (01) ==
LOC: HO.HMCH 08:44
PROVIDERS: PCP Physician Assistant; Visit Provider Physician Assistant
DX: M17.0 Bilateral primary osteoarthritis of knee (principal); M47.816 Spondylosis without myelopathy or radiculopathy, lumbar region; F33.1 Major depressive disorder, recurrent, moderate

== ENCOUNTER → 2024-10-27 08:44 | Outpatient (BNVA) | payer OTHER, SELFPAY | PROVIDERS: PCP Physician Assistant; Visit Provider Physician Assistant | DX: M17.0 Bilateral primary osteoarthritis of knee (principal); M47.816 Spondylosis without myelopathy or radiculopathy, lumbar region; F33.1 Major depressive disorder, recurrent, moderate; E78.2 Mixed hyperlipidemia; E53.8 Deficiency of other specified B group vitamins; I10 Essential (primary) hypertension; M23.92 Unspecified internal derangement of left knee; G47.00 Insomnia, unspecified | CPT/HCPCS: 96127; 99212 ==

== ENCOUNTER 2024-12-12 08:07 | Outpatient (REF) | payer OTHER, SELFPAY ==
--- NOTE | ~2024-12-12 | XR_ITS ---
XR KNEE HUEY 3V HISTORY: Bilateral knee pain COMPARISON: 09/24/2023 TECHNIQUE: AP view bilateral knees standing, lateral and patellofemoral views bilateral knees. FINDINGS: RIGHT KNEE: No fracture, dislocation, or suspicious bone lesion. Mild medial and patellofemoral compartment joint space narrowing. Normal patellar alignment. No abnormal patellar tilt. No evidence of joint effusion. Soft tissues appear normal. LEFT KNEE: No fracture, dislocation, or suspicious bone lesion. Mild medial and patellofemoral compartment joint space narrowing. Normal patellar alignment. No abnormal patellar tilt. No evidence of joint effusion. Soft tissues appear normal. XR/XR knee LT 3V IMPRESSION: 1. Mild medial and patellofemoral compartment osteoarthritis symmetrically in both knees. 2. No joint effusion. Electronically signed by: Waldemar Smith MD 12/12/2024 02:23 PM EDT
--- NOTE | ~2024-12-12 | XR_ITS ---
XR KNEE HUEY 3V HISTORY: Bilateral knee pain COMPARISON: 09/24/2023 TECHNIQUE: AP view bilateral knees standing, lateral and patellofemoral views bilateral knees. FINDINGS: RIGHT KNEE: No fracture, dislocation, or suspicious bone lesion. Mild medial and patellofemoral compartment joint space narrowing. Normal patellar alignment. No abnormal patellar tilt. No evidence of joint effusion. Soft tissues appear normal. LEFT KNEE: No fracture, dislocation, or suspicious bone lesion. Mild medial and patellofemoral compartment joint space narrowing. Normal patellar alignment. No abnormal patellar tilt. No evidence of joint effusion. Soft tissues appear normal. XR/XR knee RT 3V IMPRESSION: 1. Mild medial and patellofemoral compartment osteoarthritis symmetrically in both knees. 2. No joint effusion. Electronically signed by: Waldemar Smith MD 12/12/2024 02:23 PM EDT
== END 2024-12-12 08:08 | disposition home or self-care (01) ==
LOC: HO.HOSX 08:07
PROVIDERS: Visit Provider Physician Assistant
DX: M17.0 Bilateral primary osteoarthritis of knee (principal)
CPT/HCPCS: 20610; 73562; 99212; J1010; J2003

== ENCOUNTER 2024-12-12 13:59 | Outpatient (AMB) | payer OTHER, SELFPAY ==
--- NOTE | 2024-12-12 14:16 | A.OFFVIS_ITS ---
Vital Signs 12/12/24 14:24 Height 5 ft 3 in Weight 181 lb BMI 32.1 Intake Visit Reasons: OV - B/L knee pain, LT more than RT Intake Note: Linda is a 59 year old female who presents today for a follow up of her bilateral knee pain s/p right MMR repair 12/19/23 NE. Patient reports her pain is still present but not as bad from a month ago. She is thinking of getting injections as per previous conversation with Dr. Singer. Allergies Sulfa (Sulfonamide Antibiotics) (SULFA(SULFONAMIDE ANTIBIOTICS)) Allergy (Severe, Verified 12/12/24 14:24) Anaphylaxis aspirin Adverse Reaction (Intermediate, Verified 12/12/24 14:24) Gastrointestinal Upset HPI HPI OV - B/L knee pain, LT more than RT: Details: Ms. Epstein is a 59-year-old female who presents to the office today for evaluation of bilateral knee pain. She has had a partial medial meniscectomy with chondroplasty on the right knee with Dr. Singer on 12/19/2023. 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 She is with the patient Sunday through Sunday and performs many tasks for the patient and his . She states by the end of the evening she is in 10/10 pain in bilateral knees. [facility] Medical History Depression HTN (hypertension) Colon cancer screening History of urinary incontinence History of ADHD Surgical History H/O right knee surgery H/O right breast biopsy H/O left breast biopsy S/P lumpectomy, right breast (06/15/21) History of elbow surgery Family History Father GERD (gastroesophageal reflux disease) Stroke Mother Diabetes GERD (gastroesophageal reflux disease) Depression Hypertension Fibromyalgia Mental health disorder Maternal Grandmother Dementia Uterine cancer Mental health disorder Son Autism Mental health disorder Sister Breast cancer Maternal Aunt Breast cancer Social History Household Members: Family Housing: Apartment Are you a primary client care coordinator to a significant other at home: No Do you presently have visiting nurse or other home services: No Alcohol intake: current Alcohol intake frequency: holidays/special occasions only Alcohol type: hard liquor Patient Tobacco Use Status: Former Tobacco user Tobacco use type: Cigarette Years Smoked: 25 e-Cigarette/Vaping Use: Never Used Advance Directives Date on File: 06/15/21 service: No Current occupational status: employed 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 Sexual orientation: Straight/Heterosexual Gender identity: Female Cognitive needs: No Hearing needs: No Vision needs: No Female Reproductive History Menstrual Age of Menarche: 12 Review of Systems Const All systems reviewed & are unremarkable except as noted in HPI and below Physical Exam Vital Signs: BMI result Body Mass Index 32.1 Const General: cooperative, healthy appearing and no acute distress Resp Effort & Inspection: normal respiratory effort and able to speak in complete sentences Extrem Other: Bilateral knees normal to inspection. No ecchymosis, erythema or joint effusion. Painless range of motion. NVI. Psych Appearance: grossly normal Mental Status: mental status grossly normal Attitude: cooperative Office Procedures AMB Joint Injection/Aspiration Joint Injection/Aspiration Primary Site: right knee Secondary Site: left knee Prep: site was prepped using aseptic technique, ethochloride spray was applied and injection warnings given Injected: 80 mg of, DepoMedrol, with 8 mL of (2% plain lidocaine) and in the joint Approach Used: anterolateral Procedure: The patient tolerated the procedure well, but had some pain with the injection and there was some relief with the local anesthesia Coding 07040 - Bilateral Large Joint Procedure code (CPT) selection complete Assessment & Plan Assessment & Plan (1) Osteoarthritis of knees, bilateral: Code(s): M17.0 - Bilateral primary osteoarthritis of knee Category: Medical Plan Ms. Epstein is a 59-year-old female who presents to the office today for evaluation of bilateral knee pain. She has had a partial medial meniscectomy with chondroplasty on the right knee with Dr. Singer on 12/19/2023. 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 She is with the patient Sunday through Sunday and performs many tasks for the patient and his . She states by the end of the evening she is in 10/10 pain in bilateral knees. The patient was offered a cortisone injection in bilateral knees with 80 mg of DepoMedrol. The patient was explained the risks, benefits, and alternatives to receiving this injection. After receiving consent for the injection, the patient had the procedure done while in the office today. The patient tolerated the procedure well with no complications. Follow-up will be PRN, or sooner if needed X-rays of bilateral knees which were obtained while in the office today and were reviewed by me, Bee Alcazar PA-C, revealed arthritic changes. Orders: Orders XR knee RT 3V Today M25.569 - Pain in unspecified knee XR knee LT 3V Today M25.569 - Pain in unspecified knee Coding Level of Care Code Est Pt Level 3 (09915) Diagnoses Osteoarthritis of knees, bilateral M17.0 CPT Codes Coding - 07840 - Bilateral Large Joint: 58977 - Bilateral Large Joint ([id number])
[2024-12-12 14:24] VITALS: BMI 32.1
== END 2024-12-12 14:57 | disposition home or self-care (01) ==
LOC: HO.HOS 14:00
PROVIDERS: PCP Physician Assistant; Visit Provider Physician Assistant
DX: M17.0 Bilateral primary osteoarthritis of knee (principal)
CPT/HCPCS: 20610; 99213

== ENCOUNTER → 2024-12-12 14:02 | Outpatient (BNV) | payer OTHER, SELFPAY | PROVIDERS: Visit Provider Radiology Diagnostic Radiology | DX: M17.0 Bilateral primary osteoarthritis of knee (principal) | CPT/HCPCS: 73562 ==

== ENCOUNTER 2025-02-20 13:24 | Outpatient (REF) | payer OTHER, SELFPAY ==
[2025-02-20 14:56] LABS: Hematocrit 40.1 % (37.0-47.0); Hemoglobin 13.0 g/dl (12.0-16.0); Mean Corpuscular HGB Conc 32.4 g/dl (31.0-35.0); Mean Corpuscular Hemoglobin 28.7 pg (27.0-33.0); Mean Corpuscular Volume 88.5 fL (80.0-98.0); NRBC Abs Auto 0.000 X10*3/uL (0.0-0.012); NRBC Pct Auto 0.0 /100WBC (0.0-0.2); Platelet Count 280 X10*3/uL (160-400); Red Blood Count 4.53 X10*6/uL (4.20-5.50); White Blood Count 6.3 X10*3/uL (4.8-10.8)
[2025-02-20 16:13] LABS: Microalbum/Creatinine Ratio Ur 5.6 ug/mg cr (<30)
[2025-02-20 16:28] LABS: Folate 4.8 ng/mL (> or = 4.0); Vitamin B12 677 pg/mL (200-900)
[2025-02-20 17:20] LABS: Alanine Aminotransferase 15 U/L (0-31); Albumin Level 4.7 g/dL (3.5-5.0); Alkaline Phosphatase 83 U/L (39-117); Anion Gap 15 (12-20); Aspartate Amino Transferase 17 U/L (5-31); Blood Urea Nitrogen 12 mg/dL (9-16); Calcium 9.5 mg/dL (8.4-10.2); Carbon Dioxide 24 mmol/L (22-29); Chloride 107 mmol/L (96-108); Cholesterol 241 mg/dL (<200); Estimated Glomerular Filt Rate > 60; HDL Cholesterol 72 mg/dL (>40); Potassium 3.8 mmol/L (3.3-5.1); Sodium 142 mmol/L (135-145); Total Protein 7.5 g/dL (6.5-8.0); Triglycerides 77 mg/dL (<150)
== END 2025-02-20 13:25 | disposition home or self-care (01) ==
LOC: HO.LAB 13:24
PROVIDERS: Absent Provider Physician Assistant; PCP Physician Assistant; Visit Provider Nurse Practitioner Family
DX: Z12.11 Encounter for screening for malignant neoplasm of colon (principal); E78.2 Mixed hyperlipidemia; F43.29 Adjustment disorder with other symptoms; G47.00 Insomnia, unspecified; E53.8 Deficiency of other specified B group vitamins; R23.2 Flushing; I10 Essential (primary) hypertension; E55.9 Vitamin D deficiency, unspecified; Z87.891 Personal history of nicotine dependence
CPT/HCPCS: 36415; 80053; 80061; 82043; 82306; 82570; 82607; 82746; 85027; 99202

== ENCOUNTER 2025-02-20 13:24 | Outpatient (AMB) | payer OTHER, SELFPAY ==
--- NOTE | 2025-02-20 13:42 | A.OFFVIS_ITS ---
Vital Signs 02/20/25 13:43 Height 5 ft 3 in Weight 172 lb BMI 30.5 Blood Pressure Location Lt brachial Position Sitting Oxygen Delivery Method Room Air Intake Visit Reasons: Colonoscopy Screening Intake Note: Patient new consult for 1st pre Colonoscopy screening. Patient did a Cologuard 2023 was negative. Patient denies any GI issues. 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 Accompanied by: Self / Same As Patient Allergies Sulfa (Sulfonamide Antibiotics) (SULFA(SULFONAMIDE ANTIBIOTICS)) Allergy (Severe, Verified 02/20/25 13:47) Anaphylaxis aspirin Adverse Reaction (Intermediate, Verified 02/20/25 13:47) Gastrointestinal Upset Medication List - Last Reconciled 02/20/25 by Agustina Reid CNP cholecalciferol (vitamin D3) 1,250 mcg PO QWEEK 12 weeks [cryotherapy machine with compression As directed] zolpidem 10 mg PO BEDTIME PRN HPI HPI Colonoscopy Screening: Details: Patient is a 59-year-old female with PMH of ADHD, anxiety, depression, hypertension, hyperlipidemia, PVD. Referred by PCP for pre colonoscopy screening. Patient reports bowel movements are regular, typically daily?denies constipation or diarrhea. Noted intentional weight loss of approx. 9 lbs over two months, attributed by patient to increased work hours, decreased appetite, and reduced overall food intake due to demanding schedule. Has been choosing healthier foods (salads, chicken) and consuming weight management supplements (Skinny Fit, [place], occasional mushroom coffee). Appetite present but lower than baseline. No history of GI malignancy. No other GI complaints elicited. Relevant comorbidities include history of hyperlipidemia and remote palpitations previously treated with propranolol (self-discontinued; rare recent palpitations only, not ongoing), cleared by Cariology. Recent labs showed no anemia, good renal and hepatic function, but elevated cholesterol. . Past personal breast biopsies but denies cancer. Reports sign ificant psychosocial stressors related to bereavement, with ongoing sleep disruption due to job demands. Family history notable for sibling with celiac disease and GERD in both parents; no colorectal or gastric malignancy Patient denies: fever/chills, n/v, appetite changes, pyrosis, regurgitation,dysphasia, unintentional wt loss, ab pain or melena/hematochezia. Social hx: -ETOH use 1 drink/6 months - denies recreational drug use - former smoker, cessation 08/2022 - family hx as below -denies personal hx of CA -tolerated anesthesia in the past without difficulty. PFSH Medical History (Updated 02/21/25 @ 09:05 by Agustina Reid CNP) Stress and adjustment reaction Sleep disturbance Depression HTN (hypertension) Colon cancer screening History of urinary incontinence History of ADHD Surgical History H/O right knee surgery H/O right breast biopsy H/O left breast biopsy S/P lumpectomy, right breast (06/15/21) History of elbow surgery Family History (Updated 02/20/25 @ 14:04 by Agustina Reid CNP) Father GERD (gastroesophageal reflux disease) Stroke Mother Diabetes GERD (gastroesophageal reflux disease) Depression Hypertension Fibromyalgia Mental health disorder Maternal Grandmother Dementia Uterine cancer Mental health disorder Son Autism Mental health disorder Sister Breast cancer Maternal Aunt Breast cancer Sister Celiac disease Social History Household Members: Family Housing: Apartment Are you a primary child adolescent care to a significant other at home: No Do you presently have visiting nurse or other home services: No Alcohol intake: current Alcohol intake frequency: holidays/special occasions only Alcohol type: hard liquor Patient Tobacco Use Status: Former Tobacco user Tobacco use type: Cigarette Years Smoked: 25 e-Cigarette/Vaping Use: Never Used Advance Directives Date on File: 06/15/21 service: No Current occupational status: employed 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 Sexual orientation: Straight/Heterosexual Gender identity: Female Cognitive needs: No Hearing needs: No Vision needs: No Female Reproductive History Menstrual Age of Menarche: 12 Review of Systems Const Reports as per HPI ENT Reports as per HPI Card Reports as per HPI Resp Reports as per HPI GI Reports as per HPI Reports as per HPI Physical Exam Vital Signs: Oxygen Delivery Method Room Air 02/20/25 13:43 BMI result Body Mass Index 30.5 Const General: healthy appearing, no acute distress and well developed Nutritional Appearance: average body habitus Orientation/consciousness: patient oriented x3 HEENT Head: Yes normal to inspection, Yes normocephalic and Yes atraumatic Face and sinus: Yes normal facial exam Eyes General: appearance normal, both eyes and all related structures Neck Neck: Yes normal visual inspection Resp Effort & Inspection: normal respiratory effort, able to speak in complete sentences, no tracheal deviation and symmetric chest movement Cardio Jugular venous distension: no JVD Neuro General: patient oriented x3 Gait exam (Neuro): Normal gait present Psych Appearance: grossly normal Mental Status: mental status grossly normal Speech and movement: Normal speech and movement present Affect: normal affect Attitude: cooperative Thought process: Normal thought process present Thought content: Normal thought content present Insight: Good insight present (Psych) Judgement: Good judgement present (Psych) Assessment & Plan Assessment & Plan (1) Colon cancer screening: Comment: COLOGALEIDY NEG 2019 Code(s): Z12.11 - Encounter for screening for malignant neoplasm of colon Category: Medical Plan: Screening recommended due to age and standard CRC prevention guidelines; normal recent Cologuard does not exclude need for colonoscopy. Additional Testing: None indicated prior to colonoscopy; recent labs reviewed, no anemia. Medication Management: Continue current daily vitamin D3 and zolpidem as indicated; no anticoagulants or NSAIDs to be held per med review; propranolol previously discontinued without adverse sequelae. Lifestyle Recommendations: Maintain healthy diet; continue avoidance of tobacco and limit alcohol as currently practiced; reinforce benefits of regular meals despite occupational demands; encourage improved sleep hygiene if possible. Follow-Up: Await colonoscopy scheduling; patient will be contacted by scheduling team. Routine results via mail unless pathology warrants expedited in-office consult. Patient advised to seek earlier evaluation if red flag symptoms develop (GI bleeding, persistent pain). (2) Hyperlipidemia: Code(s): E78.5 - Hyperlipidemia, unspecified Category: Medical Qualifiers: Hyperlipidemia type: mixed hyperlipidemia Qualified Code(s): E78.2 - Mixed hyperlipidemia Plan: Persistent elevated cholesterol on recent labs despite lifestyle modifications. Additional Testing: Consider repeat lipid panel per PCP follow-up. Medication Management: No modifications at this time; managed by PCP. Lifestyle Recommendations: Continue healthy diet (increased fiber, reduced saturated fats), regular exercise as tolerated; consider teacher of the sight impaired referral if further support needed. Follow-Up: With PCP for lipid management. (3) Stress and adjustment reaction: Code(s): F43.29 - Adjustment disorder with other symptoms Category: Medical Plan: Significant bereavement, high occupational stress, ongoing disrupted sleep. Additional Testing: None required at this time. Medication Management: Continue zolpidem as needed; patient to clarify refill status with PCP. Lifestyle Recommendations: Strongly encourage engagement with bereavement/grief counseling; optimize sleep hygiene where possible; discuss occupational adjustments for rest/breaks with employer. Follow-Up: As needed with counselor or PCP. Plan Follow-up after colonoscopy as needed or sooner if needed Time: I spent a total of 30 minutes on the date of encounter which includes: Preparing to see the patient (reviewed previous documentation, test results and medical history) Performing a medically appropriate exam and/or evaluation Ordering medications, tests, and procedures Documenting clinical information in the health record people Orders: Referrals GI Procedure Notification Agustina Reid CNP Z12.11 - Encounter for screening for malignant neoplasm of colon Medications: Changed From zolpidem 10 mg PO BEDTIME 30 days 30 tabs 2RF prn G47.00 - Insomnia, unspecified To zolpidem 10 mg PO BEDTIME PRN G47.00 - Insomnia, unspecified Liban Watkins PA-C Coding Level of Care Code New Pt New Pt Level 3 (31620) Patient Type New Diagnoses Colon cancer screening Z12.11 Mixed hyperlipidemia E78.2 Hyperlipidemia type: mixed hyperlipidemia Stress and adjustment reaction F43.29
[2025-02-20 13:43] VITALS: BMI 30.5
== END 2025-02-20 14:17 | disposition home or self-care (01) ==
LOC: HO.HGI 13:24
PROVIDERS: PCP Physician Assistant; Visit Provider Nurse Practitioner Family
DX: Z01.818 Encounter for other preprocedural examination (principal); Z12.11 Encounter for screening for malignant neoplasm of colon; E78.2 Mixed hyperlipidemia; F43.29 Adjustment disorder with other symptoms
CPT/HCPCS: 99203

== ENCOUNTER 2025-02-27 13:05 | Outpatient (AMB) | payer OTHER, SELFPAY ==
--- NOTE | 2025-02-27 13:27 | A.OFFPC_ITS ---
Vital Signs 02/27/25 13:28 Height 5 ft 2.6 in Weight 172 lb 8 oz BMI 30.9 BP 136/68 Blood Pressure Location Lt brachial Position Sitting Pulse 89 Pulse Source Pulse Oximeter Temp 97.1 F Temp Source Temporal Artery Scan Pulse Oximetry (%) 99 Oxygen Delivery Method Room Air Intake Visit Reasons: pe Intake Note: Patient is here today for a physical. 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: No Ship Fitter: Not Required per policy Accompanied by: Self / Same As Patient Allergies Sulfa (Sulfonamide Antibiotics) (SULFA(SULFONAMIDE ANTIBIOTICS)) Allergy (Severe, Verified 02/27/25 14:55) Anaphylaxis aspirin Adverse Reaction (Intermediate, Verified 02/27/25 14:55) Gastrointestinal Upset Medication List - Last Reconciled 02/27/25 by Carolin Flores MD bisacodyl 20 mg (4 x 5 mg) PO ONCE cholecalciferol (vitamin D3) 1,250 mcg PO QWEEK 12 weeks [cryotherapy machine with compression As directed] polyethylene glycol 3350 (Miralax) 238 grams PO ONCE sertraline 25 mg PO DAILY sertraline 50 mg PO DAILY zolpidem 10 mg PO BEDTIME PRN Tobacco use date assessed: 02/27/25 Dental Screening Dental Screen Date: 10/27/24 HPI HPI Comments History of Present Illness Details Patient is a 59-year-old female with history of hypertension, hyperlipidemia, 20+ year smoking history (quit in July 2022), AQUILINO, MDD, palpitations, insomnia, atypical ductal hyperplasia right breast s/p wide excision biopsy without evidence of malignancy, history of right medial meniscal tear s/p repair in 12/2023, and bilateral knee osteoarthritis who is presenting today for annual physical exam. Patient reports being overwhelmed and severely depressed due to many stressors, including work, a son with special needs, and her daughter who is facing diffic ulties herself and had to move in with her mother along with the grand kids. Patient states she is trying to take care of her son and daughter and grandkids in addition to her job, and feeling too stressed and overwhelmed. She does not feel she has any support. Patient also reports that she is still struggling due to the loss of her partner 2-1/2 years ago and feels like she did not get a chance to grief. She reports she has not been able to try counseling therapy due to her very busy schedule and responsibilities. She has not tried medications in the past for her depression. Patient reports she has quit smoking cigarettes since her partner , however she is currently using vape with no tobacco products. Patient currently does not take any medications, although he reports taking Co Q10. [facility], [facility] Medical History (Updated 02/27/25 @ 14:56 by Carolin Flores MD) Stress and adjustment reaction Sleep disturbance Depression HTN (hypertension) Colon cancer screening History of urinary incontinence History of ADHD Surgical History H/O right knee surgery H/O right breast biopsy H/O left breast biopsy S/P lumpectomy, right breast (06/15/21) History of elbow surgery Family History Father GERD (gastroesophageal reflux disease) Stroke Mother Diabetes GERD (gastroesophageal reflux disease) Depression Hypertension Fibromyalgia Mental health disorder Maternal Grandmother Dementia Uterine cancer Mental health disorder Son Autism Mental health disorder Sister Breast cancer Maternal Aunt Breast cancer Sister Celiac disease Social History Household Members: Family Housing: Apartment Are you a primary critical care clinical nurse specialist to a significant other at home: No Do you presently have visiting nurse or other home services: No Alcohol intake: current Alcohol intake frequency: holidays/special occasions only Alcohol type: hard liquor Patient Tobacco Use Status: Former Tobacco user Tobacco use type: Cigarette Years Smoked: 25 e-Cigarette/Vaping Use: Currently Using Second Hand Smoke Exposure: Yes Advance Directives Date on File: 06/15/21 service: No Current occupational status: employed 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 Sexual orientation: Straight/Heterosexual Gender identity: Female Cognitive needs: No Hearing needs: No Vision needs: No Female Reproductive History Menstrual Age of Menarche: 12 Questionnaire PHQ-9 Over the last 2 weeks, how often have you been bothered by any of the following problems? 1. Little interest or pleasure in doing things: nearly every day 2. Feeling down, depressed, or hopeless: nearly every day 3. Trouble falling or staying asleep, or sleeping too much: nearly every day 4. Feeling tired or having little energy: nearly every day 5. Poor appetite or overeating: nearly every day 6. Feeling bad about yourself - or that you are a failure or have let yourself or your family down: several days 7. Trouble concentrating on things, such as reading the newspaper or watching television: more than half the days 8. Moving or speaking so slowly that other people could have noticed. Or the opposite - being so fidgety or restless that you have been moving around a lot more than usual: several days 9. Thoughts that you would be better off or of hurting yourself in some way: not at all Total score: 19 Depression Screening Interpretation: Positive Depression Screening Done: Yes Source: Developed by Drs. Brody Hathaway, Adriane Kim, Carlitos Cordoba and colleagues, with an educational hudson from [employer]. Thrive Questionnaire Date Thrive assessed: 10/27/24 I am a: Patient What is your living situation today?: I choose not to answer this question Within the past 12 months, did the food you bought not last and you didn't have the money to get more?: Sometimes True Within the past 12 months, did you worry whether your food would run out before you got money to buy more?: Sometimes True Do you have trouble paying for medicines?: Yes Do you have trouble getting transportation to medical appointments?: No Do you have trouble paying your heating and electricity bill?: Yes Do you have trouble taking care of your child, family member or friend?: Yes Do you have trouble with day-to-day activities such as bathing, preparing meals, shopping, managing finances, etc.?: Yes Are you currently unemployed and looking for a job?: No Are you interested in more education?: No Please select the resources that you would like help with: Daily support Currently or been in a relationship where the following occur: I choose not to answer THRIVE Score: 3 AUDIT C Alcohol Use Questionnaire (AUDIT-C) 1. How often do you have a drink containing alcohol?: Monthly or less 2. How many drinks containing alcohol do you have on a typical day when you are drinking?: 1 or 2 3. How often do you have six or more drinks on one occasion?: Never Total Score: 1 AQUILINO-7 AMB Questionnaire AQUILINO-7 Date AQUILINO - 7 assessed: 06/23/25 Feeling nervous, anxious, or on edge: 1 = Several days Not being able to stop or control worryin = Not at all Worrying too much about different things: 1 = Several days Trouble relaxin = More than half the days Being so restless that it is hard to sit still: 1 = Several days Becoming easily annoyed or irritable: 2 = More than half the days Feeling afraid as if something awful might happen: 1 = Several days Total AQUILINO-7 score (0-4 normal; 5-9 mild; 10-14 moderate; 15-21 severe): 8 Source: Developed by Drs. Brody Hathaway, Adriane Kim, Carlitos Cordoba and colleagues, with an educational hudson from [employer]. Review of Systems Narrative as per HPI Physical exam (Primary Care) Vital Signs: Last Vital Signs Temp 97.1 F 02/27/25 13:28 Pulse 89 02/27/25 13:28 BP 136/68 02/27/25 13:28 Pulse Ox 99 02/27/25 13:28 Oxygen Delivery Method Room Air 02/27/25 13:28 General: Well-appearing, alert, oriented ?3, in no acute distress. HEENT: Normocephalic, atraumatic, PERRLA, EOMI, no scleral icterus. External ears normal, tympanic membranes intact bilaterally, no erythema or effusion. No oral lesions, or pharyngeal erythema. Neck Supple. Cardiovascular: RRR, S1-S2 appreciated, no murmurs, rubs or gallops. Respiratory: Lungs clear to auscultation bilaterally, no wheezes, rales or rhonchi. Abdomen: Soft, nontender, nondistended. MSK: Normal range of motion in all extremities, no joint swelling. Skin: Intact, no rashes or lesions Neurologic: Alert and oriented X3, cranial nerves II?XII grossly intact, sensation and strength intact in bilateral lower and upper extremities. Psychiatry: Depressed mood, tearful. BMI result Body Mass Index 30.9 Tobacco/Smoking Status: Tobacco use Status Tobacco use date assessed 02/27/25 02/27/25 13:33 Patient Tobacco Use Status Former Tobacco user 02/27/25 13:33 Tobacco use type Cigarette 02/27/25 13:33 e-Cigarette/Vaping Use Currently Using 02/27/25 13:33 PHQ-9: PHQ-9 Score PHQ-9: Total score 19 02/27/25 13:39 Depression Screening Interpretation: Positive Thrive Assessment: Date of Thrive Assessment Date Thrive assessed 10/27/24 02/27/25 13:33 Currently or been in a relationship where the following occur: I choose not to answer Office Procedures Flu Questionnaire Does the patient have a severe egg allergy?: No Does the patient have severe life threatening allergies?: No Does the patient have a fever or illness today?: No Has the patient ever had Guillain-[place] Syndrome?: No Has the patient ever had any past reaction to a flu shot?: No Immunizations Fluarix [id number] (PF) 45 mcg (15 mcg x 3)/0.5 mL IM syringe Performing Provider: Carolin Flores MD [facility] Administered by: ANDREA Nunez on 02/27/25 14:32 Dose Route Admin Location Dispensed Lot Number Expiration Date [facility] Hematology Supervisor 0.5 mL IM Left Deltoid 0.5 mL [id number] 11/03/25 [id number] Apprema VIS Given Date VIS Provided VIS Publication Date 02/27/25 Single Vaccine 24 Eligibility Eligibility Date Funding Source Not [facility] Eligible 02/27/25 Private Results Reviewed Results Reviewed: Lab results from February 2025 reviewed and discussed with the patient. Coding Level of Care Code Est Pt Prev Care 40-64y(94888) Diagnoses Annual physical exam Z00.00 Severe major depression F32.2 Mixed hyperlipidemia E78.2 Hyperlipidemia type: mixed hyperlipidemia Assessment & Plan Assessment & Plan (1) Annual physical exam: Comment: Patient presenting today for annual physical. Code(s): Z00.00 - Encounter for general adult medical examination without abnormal findings Category: Medical Plan: Healthcare maintenance Colon cancer screening: Cologuard 2023 was negative. Saw GI on 02/20/2025, pending scheduling for colonoscopy. Last Pap smear: 03/22/20 (neg pap and hpv). Has an appointment today with OBGYN Mammogram: 09/17/24 (Birad 2). Breast MRI 03/10/2024 (BI-RADS 1 in bilateral breasts) - needs repeat MRI for annual screening surveillance, order sent Given patient's 20+ year smoking history, age, and quitting smoking within past 15 years, lung cancer screening with low-dose CT scan is indicated. We will discuss this next visit. Vaccinations: Up-to-date with PCV 20 (02/2024), Tdap (08/2023), flu shot given today. Recent labs from February 2025: CBC within normal limits, normal electrolytes, normal LFTs, kidney function, vitamin B12, vitamin-D and folate. Urine microalbumin WNL. Lipid panel reveals elevated cholesterol and LDL. (2) Severe major depression: Code(s): F32.2 - Major depressive disorder, single episode, severe without psychotic features Category: Medical Plan: Patient presenting with severe depression with PHQ-9 of 19 due to multiple life stressors. Patient is interested to try counseling, she was referred in the past but could not make an appointment due to busy schedule. New referral to counseling therapy is placed. - Starting antidepressant was discussed with the patient, explained side effects and that medication may take 4-6 weeks to start having effect. Patient is agreeable. Start sertraline 25 mg daily for 7 days to evaluate tolerance, then increase to 50 mg daily. Follow-up in 4 weeks to evaluate. (3) Hyperlipidemia: Code(s): E78.5 - Hyperlipidemia, unspecified Category: Medical Qualifiers: Hyperlipidemia type: mixed hyperlipidemia Qualified Code(s): E78.2 - Mixed hyperlipidemia Plan: Lipid panel 02/2025: elevated cholesterol 241, and LDL 154. 10 year ASCVD risk score of 1.8%. Patient counselled on lifestyle modification including exercise and diet changes such as avoiding high fat food, saturated fats, choosing good oils like olive oil, increase fibers and vegetables, and reducing red meat intake. - will follow-up on repeat liver panel in 6 months. If continues to be eleva braydon, starting statin will be considered. Orders: Orders Influenza [id number] Immunization Today Z23 - Encounter for immunization Lipid Panel 6 Months E78.2 - Mixed hyperlipidemia MR breast BI wo con Today N60.91 - Unspecified benign mammary dysplasia of right breast Lipid Panel with Reflex Today R63.5 - Abnormal weight gain Referrals Counseling Referral F32.2 - Major depressive disorder, single episode, severe without psychotic features Medications: New sertraline Take 25 mg daily for 7 days then increase to 50 mg daily 25 mg PO DAILY 7 tabs 0RF sertraline Take 25 mg daily for 7 days then increase to 50 mg daily. 50 mg PO DAILY 30 tabs 2RF Refilled cholecalciferol (vitamin D3) 1,250 mcg PO QWEEK 12 caps 1RF 12 weeks F33.0 - Major depressive disorder, recurrent, mild
[2025-02-27 13:28] VITALS: BP 136/68; PULSE 89; TEMP 36.2; O2SAT 99; BMI 30.9
== END 2025-02-27 14:43 | disposition home or self-care (01) ==
LOC: HO.HMCH 13:06
PROVIDERS: PCP Physician Assistant; Visit Provider Student in an Organized Health Care Education/Training Program
DX: Z00.00 Encounter for general adult medical examination without abnormal findings (principal); F32.2 Major depressive disorder, single episode, severe without psychotic features; E78.2 Mixed hyperlipidemia; Z23 Encounter for immunization

== ENCOUNTER 2025-02-27 13:05 | Outpatient (REF) | payer OTHER, SELFPAY | END 2025-02-27 13:06 | disposition home or self-care (01) | LOC: HO.LNP 13:05 | PROVIDERS: PCP Physician Assistant; Visit Provider Student in an Organized Health Care Education/Training Program | DX: Z00.00 Encounter for general adult medical examination without abnormal findings (principal); Z12.4 Encounter for screening for malignant neoplasm of cervix; Z01.419 Encounter for gynecological examination (general) (routine) without abnormal findings; Z12.31 Encounter for screening mammogram for malignant neoplasm of breast; F43.29 Adjustment disorder with other symptoms; Z78.0 Asymptomatic menopausal state; Z23 Encounter for immunization; F32.2 Major depressive disorder, single episode, severe without psychotic features; E78.2 Mixed hyperlipidemia; Z79.899 Other long term (current) drug therapy | CPT/HCPCS: 87626; 88175; 90471; 90656; 99396 ==

== ENCOUNTER 2025-02-27 14:48 | Outpatient (AMB) | payer OTHER, SELFPAY ==
--- NOTE | 2025-02-27 14:52 | MHC.OFFVIS ---
Vital Signs 02/27/25 15:01 Height 5 ft 2 in Weight 172 lb BMI 31.5 BP 126/82 Blood Pressure Location Rt brachial Position Sitting Intake Visit Reasons: Annual Intake Note: here for annual no concerns Information Interpreted: non-clinical & clinical Child And Family Therapist: Child And Family Therapist Present (Tessa) Accompanied by: Self / Same As Patient Allergies Sulfa (Sulfonamide Antibiotics) (SULFA(SULFONAMIDE ANTIBIOTICS)) Allergy (Severe, Verified 02/27/25 14:55) Anaphylaxis aspirin Adverse Reaction (Intermediate, Verified 02/27/25 14:55) Gastrointestinal Upset Medication List - Last Reconciled 02/27/25 by Angela Hidalgo LPN bisacodyl 20 mg (4 x 5 mg) PO ONCE cholecalciferol (vitamin D3) 1,250 mcg PO QWEEK 12 weeks [cryotherapy machine with compression As directed] polyethylene glycol 3350 (Miralax) 238 grams PO ONCE sertraline 25 mg PO DAILY sertraline 50 mg PO DAILY zolpidem 10 mg PO BEDTIME PRN Do you need a note to return to daycare/school/sports/work: No HPI HPI Annual: Details: 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 As I enter the room she is crying. She voiced that she is happy to see me she has been through a lot in the last couple of years her partner of 20 years suddenly of a heart attack at work 2 years ago and she feels she has not yet even begun to grieve his loss and she misses him in every way and with every smell and with every small thing. She is also dealing with difficult family situations her daughter ended up having to babies and is living with her and she has given up her bedroom to her daughter and the baby's and so she is sleeping on the couch with her ruptured discs and discussing pain management options as she does not even have a regular bed to sleep and. 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 She did quit smoking when her partner though she still occasionally vapes and feels it helps she saw her primary care provider today and he prescribed antidepressants for her to start and is working on a referral for her for therapy via tele visits because that is all she can manage with her work situation. It has been a very difficult few years. She reminded me with details of encounters from when we have been seeing her for very many years. [facility] Medical History Stress and adjustment reaction Sleep disturbance Depression HTN (hypertension) Colon cancer screening History of urinary incontinence History of ADHD Surgical History H/O right knee surgery H/O right breast biopsy H/O left breast biopsy S/P lumpectomy, right breast (06/15/21) History of elbow surgery Family History Father GERD (gastroesophageal reflux disease) Stroke Mother Diabetes GERD (gastroesophageal reflux disease) Depression Hypertension Fibromyalgia Mental health disorder Maternal Grandmother Dementia Uterine cancer Mental health disorder Son Autism Mental health disorder Sister Breast cancer Maternal Aunt Breast cancer Sister Celiac disease Social History Household Members: Family Housing: Apartment Are you a primary career advisor to a significant other at home: No Do you presently have visiting nurse or other home services: No Alcohol intake: current Alcohol intake frequency: holidays/special occasions only Alcohol type: hard liquor Patient Tobacco Use Status: Former Tobacco user Tobacco use type: Cigarette Years Smoked: 25 e-Cigarette/Vaping Use: Currently Using Second Hand Smoke Exposure: Yes Advance Directives Date on File: 06/15/21 service: No Current occupational status: employed 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 Sexual orientation: Straight/Heterosexual Gender identity: Female Cognitive needs: No Hearing needs: No Vision needs: No Female Reproductive History Menstrual Age of Menarche: 12 Menopause type: natural Age of menopause: 57 Total pregnancies: 2 Number of Living Children: 2 Date of last pap smear: 03/25/20 History of abnormal pap smear: No Date of Mammogram: 09/17/24 History of abnormal mammogram: Yes Physical Exam Vital Signs: Last Vital Signs BP 126/82 02/27/25 15:01 BMI result Body Mass Index 31.5 Const General: healthy appearing, comfortable, no acute distress, well developed and alert Nutritional Appearance: average body habitus Orientation/consciousness: patient oriented x3 Limitations: no limitations HEENT Head: Yes normocephalic Neck Neck: Yes normal visual inspection Chest Chest palpation & inspection: normal inspection of the chest Breast/axilla inspection: normal inspection of the breasts and normal inspection of the axillae Breast/axilla palpation: normal palpation of the breasts and normal palpation of the axillae Resp Effort & Inspection: normal respiratory effort GI Inspection: Yes normal to inspection, No Abdominal wall edema and No distended Palpation (GI): Soft to palpation and nontender Other: External exam within normal limits vagina and moist slightly atrophic cervix long close thick mobile nontender uterus small difficult to feel nontender adnexa nontender bladders full good muscle tone, General: Yes bladder normal to palpation External Female Exam: normal external appearance and normal appearance of the urethra Speculum Exam - Vagina: normal appearance of the vagina, normal palpation and normal vaginal discharge Speculum Exam - Cervix: normal appearance of the cervix, normal palpation and nontender Bimanual exam- vagina & uterus: normal bimanual exam, normal palpation, uterine size normal, bladder normal to palpation, consistency normal, normal palpation, uterine mobility normal, uterine shape normal, No Cervical tenderness present, non-tender and no cervical motion tenderness Bimanual Exam- Adnexa, other: normal adnexae, no masses, normal and No adnexal tenderness Neuro General: patient oriented x3 Assessment & Plan Assessment & Plan (1) Cervical cancer screening: Code(s): Z12.4 - Encounter for screening for malignant neoplasm of cervix Category: Medical (2) Encounter for annual routine gynecological examination: Code(s): Z01.419 - Encounter for gynecological examination (general) (routine) without abnormal findings Category: Medical (3) Menopause: Code(s): Z78.0 - Asymptomatic menopausal state Category: Medical (4) Breast cancer screening: Comment: Patient informs me she is alternating MRIs and mammograms Code(s): Z12.39 - Encounter for other screening for malignant neoplasm of breast Category: Medical Qualifiers: Breast cancer screening modality: mammogram Qualified Code(s): Z12.31 - Encounter for screening mammogram for malignant neoplasm of breast (5) Grief reaction with prolonged bereavement: Comment: Patient feels she is not even started to grieve the loss of her partner 2 years ago. Says she is being referred for therapy by her PCC now. Code(s): F43.29 - Adjustment disorder with other symptoms Category: Medical Plan -----Discussed in this visit the following: healthy balanced diet, regular and consistent exercise, getting recommended health screens, doing the best she can for her particular health concerns, kegel exercises, pap smear screening and followup recommendations, mammography screening and SBE, normal changes in cycles in her life stage--- . She is being followed by her PCC and he prescribed antidepressants for her that she is going to be starting and is referring her for tele visit therapy which is the only thing that would fit with her complicated life right now. She is hoping that her daughter is approved for housing so she can reclaim her own bed which she very badly needs given that she is dealing with her own health concerns and does not even have space to walk around. Encouraged to allow her the emotional space to grieve, and work through the many feelings and stressors she is dealing with. Congratulated on quitting smoking and she may work on vaping cessation further on down the road. She is being followed by Dr. Parker for her breast concerns with alternating MRIs and mammograms. Pap smear was done she had no need of any other screens. She wishes for me to pass on her greetings to the other midwives who cared for her. Orders: Orders Pap Smear Today Z00.00 - Encounter for general adult medical examination without abnormal findings HPV High risk Today Z00.00 - Encounter for general adult medical examination without abnormal findings Coding Level of Care Code Est Pt Prev Care 40-64y([id number]) Diagnoses Cervical cancer screening Z12.4 Encounter for annual routine gynecological examination Z01.419 Menopause Z78.0 Encounter for screening mammogram for malignant neoplasm of breast Z12.31 Breast cancer screening modality: mammogram Grief reaction with prolonged bereavement F43.29
[2025-02-27 15:01] VITALS: BP 126/82; BMI 31.5
== END 2025-02-27 15:52 | disposition home or self-care (01) ==
LOC: HO.HWS 14:48
PROVIDERS: PCP Physician Assistant; Visit Provider Advanced Practice Midwife
DX: Z12.4 Encounter for screening for malignant neoplasm of cervix (principal); Z01.419 Encounter for gynecological examination (general) (routine) without abnormal findings; Z78.0 Asymptomatic menopausal state; Z12.31 Encounter for screening mammogram for malignant neoplasm of breast; F43.29 Adjustment disorder with other symptoms
CPT/HCPCS: 99396; 99459